=== PATIENT | male | born 1965 | race Caucasian/White ===

== ENCOUNTER 2018-07-08 05:04 | Day surgery (SDC) | payer BC ==
[2018-06-26 13:26] VITALS: BMI 29.2
[2018-07-08 12:14] VITALS: TEMP 97.9
[2018-07-08] MEDS ORDERED: MIDAZOLAM HCL 2 MG/2 ML SINGLE DOSE VIAL ONE ×2 (13:18)
[2018-07-08] MEDS ORDERED: methylPREDNISolone ACET (DEPO) 80 MG/1 ML VIAL ONE (13:18)
[2018-07-08] MEDS ORDERED: BUPIVACAINE HCL/PF 0.25% (2.5MG/ML) 10 ML VIAL ONE (13:18)
[2018-07-08] MEDS ORDERED: BUPIVACAINE HCL/PF 0.5% (5MG/ML) 10 ML VIAL ONE (13:18)
[2018-07-08] MEDS ORDERED: LIDOCAINE HCL 1% PRESERVATIVE FREE - 30ML VIAL IJ ONE (13:44)
[2018-07-08] MEDS ORDERED: methylPREDNISolone ACET (DEPO) 80 MG/1 ML VIAL IJ ONE (13:44)
[2018-07-08] MEDS ORDERED: BUPIVACAINE HCL/PF 0.25% (2.5MG/ML) 10 ML VIAL IJ ONE (13:44)
--- NOTE | 2018-07-08 14:51 | OP ---
DATE OF OPERATION: 07/08/2018 PREOPERATIVE DIAGNOSIS: Right L4-5 paracentral disk herniation with right L4-5 radiculopathy. POSTOPERATIVE DIAGNOSIS: Right L4-5 paracentral disk herniation with right L4-5 radiculopathy. ATTENDING SURGEON: Roberth Herman MD PROCEDURE: 1. Right L4-5 epidural steroid injection. 2. Intraoperative fluoroscopy. ANESTHESIA: IV sedation. ANESTHESIOLOGIST: Milton Yepez MD ESTIMATED BLOOD LOSS: Minimal. INDICATIONS: The patient is a 53-year-old male with intractable lower back pain, right lower extremity radiculopathy. Because of intractable symptoms and failure of conservative treatment he is here for the 1st epidural steroid injection. Risks of the procedure included but not limited to bleeding, infection, spinal headache and neurological injury. The patient understands the indication for the procedure, procedure in detail, risks and benefits and alternative treatments for his lumbar condition and wished to proceed. No guarantee was given for a favorable outcome. PROCEDURE IN DETAIL: After the patient was taken to the operating room he was placed in the prone position with a pillow under his hips. The lumbar region was cleaned with alcohol and prepped with Betadine. Skin wheal raised with 5 mL of 1% Xylocaine. A 22-gauge spinal needle was inserted under AP and lateral fluoroscopic guidance from right-sided approach to L4-5 through an interlaminar approach. The loss of resistance technique was utilized. There was no CSF or blood backflow. Depo-Medrol 80 mg and 1 mL of 0.25% Marcaine were injected. The needle was withdrawn. A sterile bandage was applied. The patient tolerated procedure well, returned back to supine position, moving bilateral lower extremities well. He was not complaining of headache. ROBERTH HERMAN M.D. [id number]
[2018-07-08 16:23] VITALS: BP 113/75; PULSE 67
== END 2018-07-08 15:30 | disposition home or self-care (01) ==
LOC: JASU-SURG 05:04
PROVIDERS: ATTEND Neurological Surgery
PROC: 3E0R3BZ Introduction of Anesthetic Agent into Spinal Canal, Percutaneous Approach (ICD-10-PCS; 2018-07-08)
PROC: B01BYZZ Fluoroscopy of Spinal Cord using Other Contrast (ICD-10-PCS; 2018-07-08)
PROC: 3E0R33Z Introduction of Anti-inflammatory into Spinal Canal, Percutaneous Approach (ICD-10-PCS; principal; 2018-07-08 13:00)
DX: M51.06 Intervertebral disc disorders with myelopathy, lumbar region (principal)
CPT/HCPCS: 76000-TC-FY

== ENCOUNTER 2018-07-22 06:18 | Day surgery (SDC) | payer BC ==
[2018-07-20 12:08] VITALS: BMI 29.2
[2018-07-22 06:36] VITALS: TEMP 97.6
[2018-07-22] MEDS ORDERED: methylPREDNISolone ACET (DEPO) 80 MG/1 ML VIAL ONE ×2 (07:11→07:53)
[2018-07-22] MEDS ORDERED: BUPIVACAINE HCL/PF 0.25% (2.5MG/ML) 10 ML VIAL ONE (07:12)
[2018-07-22] MEDS ORDERED: MIDAZOLAM HCL 2 MG/2 ML SINGLE DOSE VIAL ONE (07:13)
[2018-07-22] MEDS ORDERED: PROPOFOL 20 ML ONE (07:13)
[2018-07-22] MEDS ORDERED: methylPREDNISolone ACET (DEPO) 80 MG/1 ML VIAL IJ ONE (07:53)
[2018-07-22] MEDS ORDERED: LIDOCAINE HCL 1% PRESERVATIVE FREE - 30ML VIAL IJ ONE (07:53)
[2018-07-22] MEDS ORDERED: BUPIVACAINE HCL/PF 0.25% (2.5MG/ML) 10 ML VIAL IJ ONE (07:53)
[2018-07-22 09:02] VITALS: BP 135/89; PULSE 80
--- NOTE | 2018-07-22 09:10 | PN ---
Progress Note (short form) - Note Progress Note: NEUROSURGERY Son at bedside in [facility] Pt's sciatica responded to 1st epidural Pt noted worsening R foot weakness and numbness x 1 week Twisting on R ankle Wants to avoid surgery R EHL/TA 2-3 Getting MRI pre-certed with/without caitlyn Surgery highly recommended pending MRI findings Pt understands that leaving such worsening condition could result in permanent nerve injury
--- NOTE | 2018-07-22 09:15 | OP ---
DATE OF OPERATION: 07/22/2018 PREOPERATIVE DIAGNOSIS: Progressive right L5 radiculopathy. POSTOPERATIVE DIAGNOSIS: Progressive right L5 radiculopathy. ATTENDING SURGEON: Roberth Pekrins MD PROCEDURES: 1. Right L4-L5 epidural steroid injection. 2. Intraoperative fluoroscopy. ANESTHESIA: Local with IV sedation. ANESTHESIOLOGIST: Jesus Sanderson MD ESTIMATED BLOOD LOSS: Minimal. INDICATION: The patient is a 53-year-old male with a history of a right L5 radiculopathy. Because of his intractable symptoms and failure of conservative treatment, he is here for the second epidural steroid injection. The first injection did help his pain somewhat. However, the patient notes further weakness in the right foot dorsiflexion. The risks of the procedure include, but are not limited to, bleeding, infection, spinal headache, and neurological injury. The patient understands the indication for the procedure, procedure in detail, risks and benefits, and the alternatives for treatment of his lumbar condition, and wished to proceed. No guarantees were given for a favorable outcome. The patient is made aware that because of the weakness, surgery is indicated. He would like to hold off and try the second injection first, however. It was impressed upon him the importance of expeditious decompression, given neurological worsening. PROCEDURE IN DETAIL: After the patient was taken to the operating room, he was placed in the prone position. After IV sedation was given, the lower lumbar region was cleaned with alcohol and prepped with Betadine. A skin wheal was raised with 5 mL of 1% Xylocaine. A 22-gauge spinal needle was inserted under AP and lateral fluoroscopic guidance from a right-sided approach to L4-5 near the lateral recess. Loss of resistance technique was utilized and there was no CSF or blood backflow. Depo-Medrol of 80 mg and 1 mL of 0.25% Marcaine was injected. The needle was withdrawn. A sterile bandage was applied. The patient tolerated the procedure well, and was returned back to supine position, moving bilateral lower extremities as he did previously. The patient was urged strongly to follow up with my office soon to consider contemplating the surgical procedure because of his right foot dorsiflexion weakening. Ni CARLSON/[id number] MTDD
== END 2018-07-22 09:05 | disposition home or self-care (01) ==
LOC: JASU-SURG 06:18
PROVIDERS: ATTEND Neurological Surgery
PROC: 3E0R33Z Introduction of Anti-inflammatory into Spinal Canal, Percutaneous Approach (ICD-10-PCS; 2018-07-22)
PROC: B01BZZZ Fluoroscopy of Spinal Cord (ICD-10-PCS; 2018-07-22)
PROC: 3E0R3BZ Introduction of Anesthetic Agent into Spinal Canal, Percutaneous Approach (ICD-10-PCS; principal; 2018-07-22 07:30)
DX: M54.16 Radiculopathy, lumbar region (principal)
CPT/HCPCS: 76000-TC-FY

== ENCOUNTER 2019-08-30 06:25 | Inpatient (IN) | payer BC ==
[2019-08-30 06:32] VITALS: BMI 69.0
--- NOTE | 2019-08-30 07:00 | PDOC ---
Attending Attestation - Resident Resident Name: Jagdeep Goetz - ED Attending Attestation I have performed the following: I have examined & evaluated the patient, The case was reviewed & discussed with the resident, I agree w/resident's findings & plan, Exceptions are as noted - HPI HPI: 08/30/19 07:59 54yo male with hx of afib s/p 2 ablations and lbp s/p discectomy at [facility] with Dr. Garrido a year ago. Pt states he slipped about 3 weeks ago and then started with LBP and R leg paresthesias/weakness x 4 days. Pt c/o R low back pain and pain down the R leg. Pt with weakness in dorsiflexion and plantar flexion of the R foot/R big toe, paresthesias/sensory change to dorsum of the foot. No f/c. No cp/sob. No abd pain. C/o urinary freq. No dysuria. No loss of bowel or bladder control. No saddle paresthesias. New weakness/numbness since his surgery x 4 days. 08/30/19 08:54 - Physicial Exam PE: 08/30/19 08:02 Gen: aaox3, nad heart: +s1s2 reg lungs: cta b/l abd: soft, nt/nd +bs ext: no c/c/e neuro: cn ii-xii grossly intact, weakness in plantar flexion 3/5 on R, big toe R dorsiflexion - 2/5, sensory is diminished dorsum of the foot, R lateral leg, R lateral thigh, weakness with hip flexion R, 5/5 muscle strength LLE/RUE/LUE - Medical Decision Making 08/30/19 08:07 I, Dr. Carrie Paulino, DO, attest that this document has been prepared under my direction and personally reviewed by me in its entirety. I further attest, that it accurately reflects all work, treatment, procedures and medical decision -making performed by me. a/p: 54yo male with hx of lumbar disease s/p discectomy and hx of radiculopathy with surgery [address] Garrido with lbp and weakness/parethesias -pocus ultrasound bladder shows pvr of 64cc -new neuro findings, no midline back ttp, well healed incision to lumbar spine, R paraspinal ttp -will obtain labs, MRI lumbar spine, pain control, muscle relaxer -will discuss with Dr. Garrido -concern for new neuro findings/back, injury 3 weeks ago with a slip and fall -last po intake was 230a -will monitor and reassess 08/30/19 08:51 resident discussing the case with Dr. garrido recommends mri with and without to eval post surgical change vs new disease 08/30/19 09:50 ua neg 08/30/19 10:41 dr. garrido at the bedside, will add decadron 08/30/19 15:14 dr. garrido taking the patient to the OR resident discussed the case with Dr. Kimball who accepts pt to service Discharge - Discharge Information Problems reviewed: Yes Clinical Impression/Diagnosis: Lumbar radiculopathy, right, Herniated vertebral disc Condition: Guarded - Admission Yes - Follow up/Referral - Patient Discharge Instructions - Post Discharge Activity
[2019-08-30] MEDS ORDERED: KETOROLAC TROMETHAMINE 30 MG/1 ML VIAL IVPUSH ONE (07:22)
[2019-08-30] MEDS ORDERED: METHOCARBAMOL 500 MG TABLET PO ONE (07:22)
--- NOTE | 2019-08-30 07:27 | PDOC ---
History of Present Illness - General Chief Complaint: Back Pain Stated Complaint: BACK PAIN Time Seen by Provider: 08/30/19 06:54 - History of Present Illness Initial Comments: Pt is a 54 y/o M with a significant past medical history of lumbar radiculopathy , osteoporosis, and paroxysmal a-fib who presents to our emergency Department due to 3-4 days of complete numbness of the right lower extremity (haines to the Dorsum of foot). States he does have sensation on the heel and arch of his right foot however. Pt states that he also has been unable to properly ambulate during this juncture, placing his heel first as he takes a step. Pt states he fell in his shower approximately 3 weeks ago as this may be a precipitating factor to the onset of his symptoms. Furthermore, pt states he has been suffering from a sharp shooting pain ranging from his mid spine traveling down to his right lower extremity. He has only taken Tylenol for the pain. Endorses urinary frequency during this time period. Denies bowel incontinence. Denies any heavy lifting. Past History - Past Medical History Allergies/Adverse Reactions: Allergies Allergy/AdvReac Type Severity Reaction Status Date / Time Penicillins Allergy Mild Rash Verified 08/30/19 06:32 Home Medications: Ambulatory Orders Atorvastatin Ca [Lipitor] 20 mg PO DAILY 12/03/13 Aspirin [Aspirin EC] 81 mg PO DAILY 05/24/15 Walker [Ultra-Light Rollator] 1 each MC DAILY #1 each 09/01/19 Gabapentin [Neurontin -] 300 mg PO TID 30 Days #90 capsule MDD 3 09/02/19 Levofloxacin [Levaquin] 500 mg PO DAILY 7 Days #7 tablet MDD 1 09/02/19 oxyCODONE HCL [Roxicodone -] 5 mg PO Q4H PRN 7 Days #42 tablet MDD 6 09/02/19 Anemia: No Asthma: No Cancer: No Cardiac Disorders: Yes (A.Fib) CVA: No COPD: No CHF: No Dementia: No Diabetes: No GI Disorders: No Disorders: No HTN: Yes Hypercholesterolemia: Yes Liver Disease: No Seizures: No Thyroid Disease: No - Surgical History Abdominal Surgery: Yes (umbilical hernia) Appendectomy: Yes Cardiac Surgery: Yes (ABLATION) Cholecystectomy: No Lung Surgery: No Neurologic Surgery: No Orthopedic Surgery: Yes (CERVICAL DISC SX X3) - Immunization History Td Vaccination: Yes TDAP Vaccination: Yes Immunization Up to Date: Yes - Psycho Social/Smoking Cessation Hx Smoking Status: No Smoking History: Never smoked Years of Tobacco Use: 0 Have you smoked in the past 12 months: No Number of Cigarettes Smoked Daily: 0 Cigars Per Day: 0 Information on smoking cessation initiated: No Hx Alcohol Use: No Drug/Substance Use Hx: No Substance Use Type: None Hx Substance Use Treatment: No Review of Systems - Review of Systems Able to Perform ROS?: Yes Is the patient limited Greek proficient: No Constitutional: No: Chills, Fever, Loss of Appetite, Unintentional Wgt. Loss HEENTM: No: Blurred Vision Respiratory: No: Cough, Shortness of Breath, Productive cough Cardiac (ROS): No: Chest Pain, Irregular Heart Rate (h/o Paroxysmal a-fib ) ABD/GI: No: Abdominal Distended, Abd. Pain w/ defecation : Yes: Frequency. No: Incontinence Neurological: Yes: Numbness, Paresthesia, Unsteady Gait *Physical Exam - Vital Signs Last Vital Signs Temp Pulse Resp BP Pulse Ox 98.4 F 78 16 159/76 97 08/30/19 06:27 08/30/19 06:27 08/30/19 06:27 08/30/19 06:27 08/30/19 06:27 - Physical Exam Comments: 08/30/19 08:35 AAOx3 NAD EOMI Sclera Clear MMM RRR S1S2 CTA b/l NDNT CN 2-12 grossly intact. Strength 5/5 b/l upper extremities. 3/5 RLE, 5/5 LLE. Patellofemoral reflex 1+ RLE, 2+ LLE. Inability to plantar/dorsiflex R Foot. Decreased sensation mid haines to dorsum of R foot. SILT Pantar aspect and heel of R foot. ED Treatment Course - LABORATORY CBC & Chemistry Diagram: 09/02/19 09:36 09/02/19 09:36 Medical Decision Making - Medical Decision Making 08/30/19 07:35 Will order routine labs-CBC, CMP. Also Pt/INR as pt may be possible surgical candidate. Toradol 30 Once for lower back pain. Will also order Lumbar Spine MRI w/o Contrast to assess for cord compression/stenosis. 08/30/19 08:02 Bedside Bladder sono performed by Dr Paulino. PVR 64 cc. Does not have urinary retention. Voided just prior to exam. 08/30/19 13:44 Pt wheeled to MRI by Hand Edger. 08/30/19 13:44 Pt earlier seen by Dr Villa Perkins. recommends following: Stat MRI with and without caitlyn Decadron 10 mg ivp Neurontin 300 mg po tid Pre-op labs, T & S; EKG, CXR in case OR is needed pt medicated with Tylenol 1000 mg Lumbar MRI--> disc protrusion L5 area. This may be cause of pt's radiculopathy. Pt to be sent to [facility]/ Dr Perkins. Pt admitted to Hospitalist service. Discharge - Discharge Information Problems reviewed: Yes Clinical Impression/Diagnosis: Lumbar radiculopathy, right, Herniated vertebral disc Condition: Stable - Follow up/Referral - Patient Discharge Instructions - Post Discharge Activity
[2019-08-30] MEDS ORDERED: METHOCARBAMOL 500 MG TABLET ONE (07:46)
[2019-08-30] MEDS ORDERED: KETOROLAC TROMETHAMINE 30 MG/1 ML VIAL ONE (07:46)
[2019-08-30 08:34] LABS: BASO % 0.5 % (0-2.0); EOS % 2.5 % (0-4.5); HEMOGLOBIN 15.1 GM/dL (11.7-16.9); LYMPH % 36.3 % (8-40); MCH 28.4 pg (25.7-33.7); MCHC 32.9 g/dl (32.0-35.9); MEAN CELL VOLUME 86.3 fl (80-96); MEAN PLT VOLUME 9.1 fl (7.5-11.1); MONO % 7.4 % (3.8-10.2); NEUT % 53.3 % (42.8-82.8); PLATELET COUNT 201 K/MM3 (134-434); RBC 5.33 M/mm3 (4.00-5.60); RDW 12.9 % (11.9-15.9); WHITE BLOOD COUNT 6.2 K/mm3 (4.0-10.0)
[2019-08-30] MEDS ORDERED: SODIUM CHLORIDE 0.9% 1000 ML INFUS.BAG IV ONE (08:55)
[2019-08-30 08:58] LABS: BILIRUBIN,TOTAL 0.4 mg/dL (0.2-1); BLOOD UREA NITROGEN 13.9 mg/dL (7-18); CALCIUM 8.8 mg/dL (8.5-10.1); CREATININE 0.9 mg/dL (0.55-1.3); POTASSIUM 4.2 mmol/L (3.5-5.1); TOT PROT 6.7 g/dl (6.4-8.2)
[2019-08-30 09:42] LABS: URINE APPEARANCE CLEAR; URINE BILIRUBIN NEGATIVE (NEGATIVE); URINE COLOR YELLOW; URINE GLUCOSE (UA) NEGATIVE (NEGATIVE); URINE KETONE NEGATIVE (NEGATIVE); URINE LEUK ESTERASE NEGATIVE (NEGATIVE); URINE NITRITE NEGATIVE (NEGATIVE); URINE PROTEIN NEGATIVE (NEGATIVE); URINE UROBILINOGEN 0.2 mg/dL (0.2-1.0)
[2019-08-30 10:02] LABS: INR 0.89 (0.83-1.09); PROTHROMBIN TIME (PATIENT) 10.5 SEC (9.7-13.0)
[2019-08-30 10:04] LABS: ACTIVATED PTT 28.8 SECONDS (25.2-36.5)
--- NOTE | 2019-08-30 10:42 | PN ---
Progress Note (short form) - Note Progress Note: NEUROSURGERY Afib s/p 2 ablations (back in NSR by report) s/p R L4-5 and L5-S1 decompression one+ year ago. Slipped about 3 weeks ago in shower and c/o LBP and R leg paresthesias/weakness x 1-2 weeks. R low back pain and pain down the R post thigh. c/o worsening weakness, numbness, and pareshtesia R foot/R big toe. Some urinary freq. No dysuria. No loss of bowel or bladder control. PE: AF, VSS HEENT- NC/AT; Neck- supple, incision healed; Motor- R IP 4/5, R EHL 2, R TA/ev 3 , R inv/gastroc 3; Sensation- decreased LT/PP/vibration R R5 > L4 and S1; DTR- decreased B ankle reflexes; Back- 4 IN incision c/d/i, healed over L4-S1; + SLR on R at 40 degrees H/o L4-5 and L5- S1 decompression Recurrent acute LBP and R L5 > L4/S1 radiculopathy with moderate foot drop Stat MRI with and without caitlyn Decadron 10 mg ivp Neurontin 300 mg po tid Pre-op labs, T & S; EKG, CXR in case OR is needed d/w pt and ED team
[2019-08-30] MEDS ORDERED: GABAPENTIN 300 MG CAPSULE (FP) PO ONE (11:25)
--- NOTE | 2019-08-30 12:01 | CONS ---
DATE OF CONSULTATION: DATE OF DICTATION: 08/30/2019 REQUESTING PHYSICIAN: Dr. Goetz in the emergency department WEALTH MANAGEMENT ADVISOR: Roberth Herman MD, Neurosurgery CHIEF COMPLAINT: Recurrent lower back pain and progressive/moderate right L5 radiculopathy. HISTORY OF PRESENT ILLNESS: Patient is a 54-year-old right-handed male with a history of atrial fibrillation status post cardiac ablation not on anticoagulation, history of C7-T1 fusion, history of right L4, 5 and L5, S1 decompression approximately 1+ year earlier who complains of recurrent lower back pain after a near fall in the shower 3 weeks ago. He braced himself and did not fall to the floor. He felt a lightning bolt on his lower back and started experiencing lower back discomfort. About a week ago, he noticed this progressive right foot weakness and numbness as well as paresthesia. He denies bowel or bladder dysfunction. He has had mild urinary urgency. The patient has no saddle anesthesia. He has no fever or chills. He has no chest pain or shortness of breath. Back and leg pain is worse with lying down and standing, but is better with sitting down. PAST MEDICAL HISTORY: Significant for atrial fibrillation status post ablation treatment, back in sinus, hypercholesterolemia, C7-T1 fusion, lumbar right L4, 5 , and L5, S1 laminectomy. MEDICATIONS: Lipitor and baby aspirin. ALLERGIES: PENICILLIN. SOCIAL HISTORY: Does not smoke. Only drinks alcohol socially. He lives at home with his . REVIEW OF SYSTEMS: Otherwise negative for major constitutional, head, neck, cardiovascular, pulmonary, gastrointestinal, genitourinary, endocrinologic, neurologic, or psychological problems except for the above. PHYSICAL EXAMINATION: Vital Signs: Temperature is 98.4, blood pressure 159/76 with a pulse rate of 78. HEENT: Shows him to be normocephalic, atraumatic, anicteric. Neck: Supple with no carotid bruits. Incision is healed. Coronary: Demonstrates regular rhythm. Lungs: Clear bilaterally. Abdomen: Benign. He is mildly obese. Extremities: Shows no signs of DVTs. There are 2+ pulses bilaterally distally in the lower extremity. Neurologic: Shows him to be awake, alert, and oriented x4. Higher cortical function is normal. Cranial nerve examination is intact. Motor examination shows 5/5 strength except right iliopsoas, which is 4/5. Right extensor hallucis longus and tibialis anterior eversion are 2/5, plantar flexion is 3/5. Iliopsoas muscle and quadriceps muscle are 4/5. Sensory examination demonstrating decreased sensation to light touch. Pinprick and vibratory sensation right L5 greater than L4 and S1 distribution. Deep tendon reflexes show decreased ankle reflexes bilaterally. He has a positive straight leg raise on the right side 30 degrees. Skin: Examination of lower back shows a healed 3- to 4-inch scar midline over L4-S1. Laboratory examination shows white blood cell count 6.2, hemoglobin 15.1, and platelet count 201,000. INR 0.89, PTT 28.8. Serum sodium is 140 and potassium 4.2. BUN 13.9, creatinine 0.9. Urinalysis was negative. IMPRESSION: 1. Rule out recurrent right L4, 5 disk herniation with acute right L5 greater than L4 and S1 radiculopathy including moderate, progressive foot drop. 2. History of C7-T1 fusion. 3. History of atrial fibrillation back in sinus not on anticoagulation. 4. Hypercholesterolemia. RECOMMENDATION: Patient presented with 3-week history of increasing lower back pain. He has been experiencing increasing lower extremity weakness in the right L5 distribution predominantly even though he also has L4 and S1 distribution symptoms. There is weakness, numbness, and paresthesia. There is no bowel or bladder incontinence. An MRI of the lumbar spine with and without gadolinium is recommended to assess the pathology at L4, 5 level. Contrast is needed because of his prior laminectomy. If there is significant compressive pathology, surgical intervention will most likely be needed because of his progressive neurological symptoms. IV steroids are requested and will be given. Also added gabapentin 300 mg 3 times a day for him for his paresthesia and numbness. The patient is aware of the above recommendations and concur with the MRI with and without contrast. Further recommendations will be made upon availability of the MRI even though as compared to pathology it is highly suspected because of his focal neurological deficit. Preoperative medical optimization is needed because of his cardiac history. ROBERTH HERMAN M.D. [id number] MTDD
[2019-08-30] MEDS ORDERED: ACETAMINOPHEN 325 MG TABLET (FP) PO PRN (12:36)
[2019-08-30] MEDS ORDERED: ACETAMINOPHEN 325 MG TABLET (FP) ONE (12:45)
[2019-08-30] MEDS ORDERED: GABAPENTIN 100 MG CAPSULE (FP) ONE (12:46)
[2019-08-30] MEDS ORDERED: BUPIVACAINE HCL/PF 0.5% (5 MG/ML) 30 ML VIAL IJ ONE ×2 (15:58→18:50)
[2019-08-30] MEDS ORDERED: THROMBIN (BOVINE) 5,000 UNIT VIAL TP ONE ×2 (16:06→17:23)
[2019-08-30] MEDS ORDERED: MIDAZOLAM HCL 2 MG/2 ML SINGLE DOSE VIAL ONE (16:14)
[2019-08-30] MEDS ORDERED: fentaNYL CITRATE 250 MCG/5 ML VIAL ONE (16:15)
[2019-08-30] MEDS ORDERED: LACTATED RINGERS SOLUTION 1,000 ML IV SCH ×2 (16:15→18:15)
[2019-08-30] MEDS ORDERED: ROCURONIUM BROMIDE 50 MG/5 ML SYRINGE ONE ×2 (16:16→17:33)
[2019-08-30] MEDS ORDERED: PROPOFOL 20 ML ONE ×4 (16:16)
[2019-08-30] MEDS ORDERED: SUCCINYLCHOLINE CHLORIDE 200 MG/10 ML SYRINGE ONE (16:16)
[2019-08-30] MEDS ORDERED: DEXAMETHASONE SOD PHOSPHATE 4 MG/1 ML VIAL ONE (16:17)
[2019-08-30] MEDS ORDERED: EPHEDRINE SULFATE/0.9% NACL/PF 50 MG/10 ML SYRINGE NR ONE (16:17)
[2019-08-30] MEDS ORDERED: LIDOCAINE HCL/PF 2% SDV 5ML VIAL ONE (16:17)
[2019-08-30] MEDS ORDERED: ceFAZolin SODIUM 1 GM VIAL ONE (16:17)
--- NOTE | 2019-08-30 16:56 | PN ---
Progress Note (short form) - Note Progress Note: NEUROSURGERY Afib s/p 2 ablations (back in NSR by report) s/p R L4-5 and L5-S1 decompression one+ year ago. Slipped about 3 weeks ago in shower and c/o LBP and R leg paresthesias/weakness x 1-2 weeks. R low back pain and pain down the R post thigh. c/o worsening weakness, numbness, and pareshtesia R foot/R big toe. No loss of bowel or bladder control. MRI with/without- new R L4-5 paracentral HNP into neuroforamen with stenosis; compression of R L5 and L4 roots; mild L5-S1 annual tear; postlaminectomies scars R L4-5 and L5-S1; multilevel DDD Recurrent R L4-5 HNP with acute LBP and R L5 > L4/S1 radiculopathy with moderate foot drop Neurontin 300 mg po tid Decadron given Pre-op labs, T & S; EKG checked For repeat R L4-5 laminectomies, bone graft, microdiscectomy Risks: bleeding, infection, CSF leak, nerve injury, DC, DVT/PE. stroke and other risks of GA Risks higher than usual given redo surgery at same level Pt understands indications for the procedure, procedure in detail, risks, benefits, alternatives and wishes to proceed as recommended All questions answered Incision marked
[2019-08-30] MEDS ORDERED: GENTAMICIN SO4 80 MG/2 ML VIAL IVPB ONE (17:00)
[2019-08-30] MEDS ORDERED: VANCOMYCIN 1,000 MG VIAL (RESTRICTED TO ID ONLY) IVPB ONE (17:00)
[2019-08-30] MEDS ORDERED: VANCOMYCIN 1,000 MG VIAL (RESTRICTED TO ID ONLY) ONE (17:13)
[2019-08-30] MEDS ORDERED: GENTAMICIN SO4 80 MG/2 ML VIAL ONE (17:14)
[2019-08-30] MEDS ORDERED: PHENYLEPHRINE HCL 10 MG/1 ML SINGLE DOSE VIAL ONE (17:19)
[2019-08-30] MEDS ORDERED: BACITRACIN 50,000 UNITS VIAL TP ONE (17:23)
--- NOTE | 2019-08-30 17:31 | HP ---
CHIEF COMPLAINT: R leg pain PCP: unknown HISTORY OF PRESENT ILLNESS: 54M w/ pmhx of multiple spinal surgeries x5, paroxysmal afib (s/p ablation x2), HLD presents in the ED for worsening R leg pain. States about 2-3 weeks ago, he fell and tripped on his R side after which he started experiencing pain starting in the R hip radiating to the R upper thigh. He describes the pain as sharp, stabbing, and constant; took Tylenol with minimal symptomatic relief. About 2 days ago, admits to requiring a cane to ambulate due to the pain. Pt has known paresthesia/weakness on the R side. As well as worsening R foot drop. Last lumbar spinal surgery was done about 1 year ago. Denies f/c, n/v, chest pain, palpitations, abd pain, urinary/bowel incontinence. ER course was notable for: (1) VS stable, labs unremarkable (2) Lumbar MRI showed disc protrusion causing stenosis of L5, R neural foraminal narrowing; enhancing granulation tissue surrounding R S1 nerve; midline, R paracentral annular bulge w/ T2 hyperintensity in posterior annulus. 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 [employer] Has 3 children Allergies Penicillins Allergy (Mild, Verified 08/30/19 06:32) Rash HOME MEDICATIONS: Home Medications Medication Instructions Recorded Atorvastatin Ca [Lipitor] 20 mg PO DAILY 12/03/13 Aspirin [Aspirin EC] 81 mg PO DAILY 05/24/15 Ibuprofen 800 mg PO QID PRN #20 tablet 06/15/18 Metoprolol Succinate [Toprol Xl] 50 mg PO PRN 07/22/18 REVIEW OF SYSTEMS CONSTITUTIONAL: Absent: fever, chills, diaphoresis, generalized weakness, malaise, loss of appetite, weight change HEENT: Absent: rhinorrhea, nasal congestion, throat pain, throat swelling, difficulty swallowing, mouth swelling, ear pain, eye pain, visual changes CARDIOVASCULAR: Absent: chest pain, syncope, palpitations, irregular heart rate, lightheadedness , peripheral edema RESPIRATORY: Absent: cough, shortness of breath, dyspnea with exertion, orthopnea, wheezing, stridor, hemoptysis GASTROINTESTINAL: Absent: abdominal pain, abdominal distension, nausea, vomiting, diarrhea, constipation, melena, hematochezia GENITOURINARY: Absent: dysuria, frequency, urgency, hesitancy, hematuria, flank pain, genital pain MUSCULOSKELETAL: +R hip pain Absent: myalgia, arthralgia, joint swelling, back pain, neck pain SKIN: Absent: rash, itching, pallor HEMATOLOGIC/IMMUNOLOGIC: Absent: easy bleeding, easy bruising, lymphadenopathy, frequent infections ENDOCRINE: Absent: unexplained weight gain, unexplained weight loss, heat intolerance, cold intolerance NEUROLOGIC: RLE weakness and paresthesia, unsteady gait 2/2 pain Absent: headache, focal weakness or paresthesias, dizziness, unsteady gait, seizure, mental status changes, bladder or bowel incontinence PHYSICAL EXAMINATION Vital Signs - 24 hr 08/30/19 08/30/19 08/30/19 06:27 13:07 15:44 Temperature 98.4 F Pulse Rate 78 Pulse Rate [ 78 77 Radial] Respiratory 16 18 18 Rate Blood Pressure 159/76 Blood Pressure 129/79 [Left Arm] Blood Pressure 106/72 [Right Arm] O2 Sat by Pulse 97 98 98 Oximetry (%) GENERAL: Pleasant, well-appearing middle aged male. NAD. AAOx3. HEENT: AT/NC. EOMI. MMM. Facial symmetry noted. NECK: Normal range of motion, supple without lymphadenopathy, JVD, or masses. LUNGS: CTA B/L. No wheezes, rhonchi, rales noted. Symmetric chest rise. HEART: RRR. Normal S1, S2. No murmurs noted. ABDOMEN: Soft, NT/ND. No masses noted. Normoactive bowel sounds in all 4Qs. MUSCULOSKELETAL: 5/5 LLE muscle strength. +4/5 muscle strength in R hip flexion. +5/5 R knee flexion/extension. +3/5 R plantarflexion/dorsiflexion. EXTREMITIES: No peripheral edema noted b/l. 2+ dorsalis pedis pulses b/l. NEUROLOGICAL: Cranial nerves II-XII intact. Normal speech. Normal gait. PSYCHIATRIC: Cooperative. Good eye contact. Appropriate mood and affect. SKIN: Warm, dry, normal turgor, no rashes or lesions noted, normal capillary refill. Laboratory Results - last 24 hr 08/30/19 08/30/19 08/30/19 08:00 08:00 08:00 WBC 6.2 RBC 5.33 Hgb 15.1 Hct 46.0 MCV 86.3 MCH 28.4 MCHC 32.9 RDW 12.9 Plt Count 201 D MPV 9.1 Absolute Neuts (auto) 3.3 Neutrophils % 53.3 Lymphocytes % 36.3 Monocytes % 7.4 Eosinophils % 2.5 Basophils % 0.5 Nucleated RBC % 0 PT with INR 10.50 INR 0.89 PTT (Actin FS) 28.8 Sodium 140 Potassium 4.2 Chloride 106 Carbon Dioxide 27 Anion Gap 7 L BUN 13.9 Creatinine 0.9 Est GFR (CKD-EPI)AfAm 110.27 Est GFR (CKD-EPI)NonAf 95.14 Random Glucose 109 H Calcium 8.8 Total Bilirubin 0.4 AST 16 ALT 44 Alkaline Phosphatase 71 Total Protein 6.7 Albumin 4.0 Urine Color Urine Appearance Urine pH Ur Specific [place] Urine Protein Urine Glucose (UA) Urine Ketones Urine Blood Urine Nitrite Urine Bilirubin Urine Urobilinogen Ur Leukocyte Esterase Blood Type Antibody Screen 08/30/19 08/30/19 08:00 08:00 WBC RBC Hgb Hct MCV MCH MCHC RDW Plt Count MPV Absolute Neuts (auto) Neutrophils % Lymphocytes % Monocytes % Eosinophils % Basophils % Nucleated RBC % PT with INR INR PTT (Actin FS) Sodium Potassium Chloride Carbon Dioxide Anion Gap BUN Creatinine Est GFR (CKD-EPI)AfAm Est GFR (CKD-EPI)NonAf Random Glucose Calcium Total Bilirubin AST ALT Alkaline Phosphatase Total Protein Albumin Urine Color Yellow Urine Appearance Clear Urine pH 5.0 Ur Specific [place] 1.022 Urine Protein Negative Urine Glucose (UA) Negative Urine Ketones Negative Urine Blood Negative Urine Nitrite Negative Urine Bilirubin Negative Urine Urobilinogen 0.2 Ur Leukocyte Esterase Negative Blood Type B POSITIVE Antibody Screen Negative ASSESSMENT/PLAN: 54M w/ pmhx of multiple spinal surgeries x5, paroxysmal afib (s/p ablation x2), HLD presents in the ED for worsening R leg pain. #Lumbar radiculopathy; 2/2 lumbar stenosis -Lumbar MRI showed disc protrusion causing stenosis of L5, R neural foraminal narrowing; enhancing granulation tissue surrounding R S1 nerve; midline, R paracentral annular bulge w/ T2 hyperintensity in posterior annulus. -OR today for repeat laminectomies, bone graft, diskectomy -Pain control per neurosurg -NPO -PT/IS post-op #Hx of Paroxysmal Afib; Stable, s/p ablation. EKG showed NSR, HR 88, no ST-T changes. #Hx of HLD; Cont Lipitor 20. #Prophylaxis DVT: SCDs FEN -LR @125 -recheck lytes in AM -NPO Dispo -admit to med-surg Visit type - Emergency Visit Emergency Visit: Yes ED Registration Date: 08/30/19 Care time: The patient presented to the Emergency Department on the above date and was hospitalized for further evaluation of their emergent condition. - New Patient This patient is new to me today: Yes Date on this admission: 08/30/19 - Critical Care Critical Care patient: No ATTENDING PHYSICIAN STATEMENT I saw and evaluated the patient. I reviewed the resident's note and discussed the case with the resident. I agree with the resident's findings and plan as documented. SUBJECTIVE: OBJECTIVE: ASSESSMENT AND PLAN:
[2019-08-30] MEDS ORDERED: HYDROmorphone HCl 2 MG/ML VIAL ONE ×3 (17:41)
[2019-08-30] MEDS ORDERED: ACETAMINOPHEN INJECTION 100 ML IVPB ONE (17:42)
[2019-08-30] MEDS ORDERED: ONDANSETRON 4 MG/2 ML VIAL IVPUSH PRN ×2 (18:03→18:04)
[2019-08-30] MEDS ORDERED: PROMETHAZINE HCL 25 MG/1 ML VIAL IVPB PRN (18:04)
[2019-08-30] MEDS ORDERED: HYDROmorphone *PCA* 10MG/50ML DISP.SYRIN PCA SCH (18:15)
[2019-08-30] MEDS ORDERED: NEOSTIGMINE METHYLSULFATE 0.5 MG/ML - 10 ML MDV ONE (18:33)
[2019-08-30] MEDS ORDERED: BACITRACIN 15 GM TUBE TOPICAL OINTMENT ONE (18:39)
--- NOTE | 2019-08-30 18:51 | OP ---
Operative Note - Note: Operative Date: 08/30/19 Pre-Operative Diagnosis: R L4-5 posterolateral and foramenal disc herniation, epidural fibrosis; spinal stenosis Operation: Repeat and expansion of R L4-5 laminectomies for decompression of R L4 and R 5 roots and thecal sac, lysis of adhesion, R L4-5 microdiscectomy, microdissection, bone graft Findings: dense epidural fibrosis, R L4-5 HNP with lateral recess and foramenal stenosis Surgeon: Roberth Perkins Recruitment Manager: Luis Angel Jose Anesthesiologist/OIL TRANSPORT DRIVER: Shadia Massey Anesthesia: General Specimens Removed: R L4-5 disc Estimated Blood Loss (mls): 25 Operative Report Dictated: Yes
[2019-08-30] MEDS ORDERED: BACITRACIN 15 GM TUBE TOPICAL OINTMENT TP ONE (18:52)
[2019-08-30] MEDS ORDERED: D5-1/2NS+20 MEQ KCL - 20 MEQ/1,000 ML INFUS.BAG IV SCH (19:00)
--- NOTE | 2019-08-30 19:01 | PN ---
Teaching Attending Note Name of Resident: Padmini Farfan ATTENDING PHYSICIAN STATEMENT I saw and evaluated the patient. I reviewed the resident's note and discussed the case with the resident. I agree with the resident's findings and plan as documented. SUBJECTIVE: Complains of Pain, altered sensation RLE. No bladder/bowel dysfunction. OBJECTIVE: Afebrile, hemodynamically Stable. Last Vital Signs Temp Pulse Resp BP Pulse Ox 98.4 F 77 18 129/79 98 08/30/19 06:27 08/30/19 15:44 08/30/19 15:44 08/30/19 15:44 08/30/19 15:44 PATEINT SEEN POST-OP HEENT - Atramatic, Normocephalic. Heart - S1, S2, RRR Lungs - clear to auscultation Abdomen - soft, non-tender. Bowel Sounds normal. Extremities - No edema, no calf tenderness. Neuro - AAO x 3. Reduced power and sensation RLE. Laboratory Results - last 24 hr 08/30/19 08/30/19 08/30/19 08:00 08:00 08:00 WBC 6.2 RBC 5.33 Hgb 15.1 Hct 46.0 MCV 86.3 MCH 28.4 MCHC 32.9 RDW 12.9 Plt Count 201 D MPV 9.1 Absolute Neuts (auto) 3.3 Neutrophils % 53.3 Lymphocytes % 36.3 Monocytes % 7.4 Eosinophils % 2.5 Basophils % 0.5 Nucleated RBC % 0 PT with INR 10.50 INR 0.89 PTT (Actin FS) 28.8 Sodium 140 Potassium 4.2 Chloride 106 Carbon Dioxide 27 Anion Gap 7 L BUN 13.9 Creatinine 0.9 Est GFR (CKD-EPI)AfAm 110.27 Est GFR (CKD-EPI)NonAf 95.14 Random Glucose 109 H Calcium 8.8 Total Bilirubin 0.4 AST 16 ALT 44 Alkaline Phosphatase 71 Total Protein 6.7 Albumin 4.0 Urine Color Urine Appearance Urine pH Ur Specific [place] Urine Protein Urine Glucose (UA) Urine Ketones Urine Blood Urine Nitrite Urine Bilirubin Urine Urobilinogen Ur Leukocyte Esterase Blood Type Antibody Screen 08/30/19 08/30/19 08:00 08:00 WBC RBC Hgb Hct MCV MCH MCHC RDW Plt Count MPV Absolute Neuts (auto) Neutrophils % Lymphocytes % Monocytes % Eosinophils % Basophils % Nucleated RBC % PT with INR INR PTT (Actin FS) Sodium Potassium Chloride Carbon Dioxide Anion Gap BUN Creatinine Est GFR (CKD-EPI)AfAm Est GFR (CKD-EPI)NonAf Random Glucose Calcium Total Bilirubin AST ALT Alkaline Phosphatase Total Protein Albumin Urine Color Yellow Urine Appearance Clear Urine pH 5.0 Ur Specific [place] 1.022 Urine Protein Negative Urine Glucose (UA) Negative Urine Ketones Negative Urine Blood Negative Urine Nitrite Negative Urine Bilirubin Negative Urine Urobilinogen 0.2 Ur Leukocyte Esterase Negative Blood Type B POSITIVE Antibody Screen Negative Current Medications Generic Name Dose Route Start Last Admin Trade Name Freq PRN Reason Stop Dose Admin Acetaminophen 1,000 mg 08/30/19 12:36 08/30/19 13:05 Tylenol - PO 1,000 mg Q6H PRN Administration Fever Or Pain Diphenhydramine HCl 12.5 mg 08/30/19 18:04 Benadryl Injection - IVPUSH ONCE PRN FOR ITCHING Fentanyl 50 mcg 08/30/19 18:03 Sublimaze Injection - IVPUSH [id number] PRN PAIN-PACU ORDER X 4 DOSES ONLY Hydromorphone HCl 10 mg 08/30/19 18:15 Hydromorphone 10 Mg/50 Ml-Ns AMMONIA PRINT OPERATOR 09/06/19 18:05 AMMONIA PRINT OPERATOR DIPAK Protocol Lactated Ringer's 1,000 mls @ 125 mls/hr 08/30/19 18:15 Lactated Ringers Solution IV ASDIR DIPAK Ondansetron HCl 4 mg 08/30/19 18:04 Zofran Injection IVPUSH Q4H PRN NAUSEA AND/OR VOMITING Promethazine HCl 12.5 mg 08/30/19 18:04 Phenergan Injection - IVPB Q6H PRN NAUSEA AND/OR VOMITING Home Medications Medication Instructions Recorded Atorvastatin Ca [Lipitor] 20 mg PO DAILY 12/03/13 Aspirin [Aspirin EC] 81 mg PO DAILY 05/24/15 Ibuprofen 800 mg PO QID PRN #20 tablet 06/15/18 Metoprolol Succinate [Toprol Xl] 50 mg PO PRN 07/22/18 ASSESSMENT AND PLAN: 56 year old male with history of DJD Spine s/p multiple spinal surgeries, Paroxysmal Atrial fibrillation (s/p Ablation x 2), chronic paresthesia/weakness RLE, presents with worsening RLE pain and altered sensation s/p fall onto R side 2 weeks ago. MRI Lumbar Spine - showed disc protrusion causing stenosis of L5, R neural foraminal narrowing; enhancing granulation tissue surrounding R S1 nerve; midline, R paracentral annular bulge w/ T2 hyperintensity in posterior annulus. 1. DJD Spine/Lumbar radiculopathy secondary to lumbar stenosis Neurosurgery - OR today for repeat laminectomy, bone graft, discectomy NPO, analgesia, DVT Px as per NeuroSx IV fluids. 2. Paroxysmal Atrial Fibrillation ECG - NSR, rate 88, no acute ST/T changes 3. HLD - Continue Lipitor 20mg. DVT Px - as per Anesthesia
[2019-08-30] MEDS ORDERED: HYDROmorphone *PCA* 10MG/50ML DISP.SYRIN ONE (19:56)
[2019-08-30] MEDS ORDERED: HYDROmorphone *PCA* 10MG/50ML DISP.SYRIN PCA ONE (20:15)
--- NOTE | 2019-08-30 20:36 | SURG ---
Surgery Foot Doctor Note Foot Doctor: Luis Angel Jose PA-C Date of Service: 08/30/19 Diagnosis: Right L4/5 posterolateral and foramenal disc herniation, epidural fibrosis; spinal stenosis Procedure: Repeat and expansion of Right L4/5 laminectomies for decompression of Right L4 and Right L5 roots and thecal sac, lysis of adhesion, Right L4/5 microdiscectomy , microdissection, bone graft I was present for the entirety of the operative procedure. For further detail, please refer to operative report. Visit type - Case Type Case Type: ED Admission - Emergency Emergency Visit: Yes Care time: The patient presented to the Emergency Department on the above date and was hospitalized for further evaluation of their emergent condition. - New patient This patient is new to me today: Yes Date on this admission: 08/30/19
--- NOTE | 2019-08-30 22:15 | PN ---
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
[2019-08-31] MEDS: diazePAM 5 MG TABLET PO SCH ×4 (00:08→19:49)
[2019-08-31] MEDS: DOCUSATE SODIUM 100 MG CAPSULE (FP) PO SCH ×4 (00:09→21:00)
[2019-08-31] MEDS ORDERED: CEFAZOLIN 1 GM/D5W 1 GM/50 ML BAG IVPB SCH (02:00)
[2019-08-31] MEDS: VANCOMYCIN 1 GM in D5W (PRE-DOCKED) 1,000 MG/250 ML IVPB SCH ×2 (03:57→15:18)
[2019-08-31 08:18] LABS: BASO % 0.1 % (0-2.0); HEMATOCRIT 40.4 % (35.4-49); HEMOGLOBIN 13.7 GM/dL (11.7-16.9); LYMPH % 10.4 % (8-40); MCH 29.3 pg (25.7-33.7); MONO % 4.3 % (3.8-10.2); NEUT % 85.2 % (42.8-82.8); PLATELET COUNT 207 K/MM3 (134-434); RBC 4.69 M/mm3 (4.00-5.60); RDW 13.1 % (11.9-15.9); WHITE BLOOD COUNT 10.4 K/mm3 (4.0-10.0)
--- NOTE | 2019-08-31 08:36 | PN ---
Progress Note (short form) - Note Progress Note: NEUROSURGERY POD #1 s/p repeat R L45- laminectomies, discectomy for R L4-5 HNP/foot drop Incisional pain mild Less shooting pain R foot less numbness and slightly less weak subjectively PE; AF, VSS CV- RR; Lungs- CTA B; Abd-benign; Ext- no sign of DVT CN- intact; Motor- R EHL 2/5; R TA 3, PF/IP 4-; remainder 4+; Sensation- residual numbness R L4-5 Dressing C/D/I- changed Neurontin 300 mg po tid Light activity only SCD's Encouraged R foot ROM Pain meds prn Neurontin FINANCIAL AID ADVISOR Complete iv vanco Incentive spirometry Findings and progress d/w pt
[2019-08-31 08:41] LABS: ALBUMIN 3.6 g/dl (3.4-5.0); BILIRUBIN,TOTAL 0.6 mg/dL (0.2-1); BLOOD UREA NITROGEN 15.1 mg/dL (7-18); CALCIUM 8.4 mg/dL (8.5-10.1); CREATININE 0.9 mg/dL (0.55-1.3); POTASSIUM 4.3 mmol/L (3.5-5.1); TOT PROT 6.1 g/dl (6.4-8.2)
--- NOTE | 2019-08-31 09:26 | PN ---
Physical Exam: SUBJECTIVE: Patient seen and examined. No acute events overnight. Pt states pain is controlled with minimal use of HOSE TESTER. Able to bear weight and ambulate slowly. Mild numbness in L4/L5 distribution, but improved from previous. OBJECTIVE: Vital Signs Period Temp Pulse Resp BP Sys/Baker Pulse Ox Last 24 Hr 97.5 F-98.2 F 65-106 10-20 106-153/57-86 94-98 GENERAL: The patient is awake, alert, and fully oriented, in no acute distress. HEAD: Normal with no signs of trauma. EYES: PERRL, extraocular movements intact, sclera anicteric, conjunctiva clear. No ptosis. ENT: Ears normal, nares patent, oropharynx clear without exudates, moist mucous membranes. NECK: Trachea midline, full range of motion, supple. LUNGS: Breath sounds equal, clear to auscultation bilaterally, no wheezes, no crackles, no accessory muscle use. HEART: Regular rate and rhythm, S1, S2 without murmur, rub or gallop. ABDOMEN: Soft, nontender, nondistended, normoactive bowel sounds, no guarding, no rebound, no hepatosplenomegaly, no masses. EXTREMITIES: 2+ pulses, warm, well-perfused, no edema. Full ROM. Decreased strength in BLE post-op 2/2 pain. NEUROLOGICAL: Cranial nerves II through XII grossly intact. Normal speech, steady slow gait and weight-bearing. Decreased sensation in BLE. PSYCH: Normal mood, normal affect. SKIN: Warm, dry, normal turgor, no rashes or lesions noted. Surgical dressing on back is clean, dry, and intact. Laboratory Results - last 24 hr CBC, BMP 08/31/19 06:50 08/31/19 06:50 Active Medications Acetaminophen (Tylenol -) 1,000 mg PO Q6H PRN PRN Reason: Fever Or Pain Last Admin: 08/30/19 13:05 Dose: 1,000 mg Atorvastatin Calcium (Lipitor -) 20 mg PO HS DIPAK Diazepam (Valium -) 5 mg PO Q8H [facility] Last Admin: 08/31/19 03:57 Dose: 5 mg Diphenhydramine HCl (Benadryl Injection -) 12.5 mg IVPUSH ONCE PRN PRN Reason: FOR ITCHING Docusate Sodium (Colace -) 100 mg PO TID [facility] Last Admin: 08/31/19 06:24 Dose: 100 mg Gabapentin (Neurontin -) 300 mg PO TID DIPAK Hydromorphone HCl (Hydromorphone 10 Mg/50 Ml-Ns) 10 mg HOSE TESTER HOSE TESTER DIPAK; Protocol Stop: 09/06/19 18:05 Last Admin: 08/31/19 00:08 Dose: Not Given Potassium Chloride/Dextrose/Sod Cl (D5-1/2ns+20 Meq Kcl -) 20 meq in 1,000 mls @ 100 mls/hr IV ASDIR DIPAK Last Admin: 08/31/19 00:08 Dose: Not Given Influenza Virus Vaccine Quadrival (Flulaval Quad [id number]) 60 mcg IM .ONCE ONE Stop: 08/31/19 10:01 Ondansetron HCl (Zofran Injection) 4 mg IVPUSH Q4H PRN PRN Reason: NAUSEA AND/OR VOMITING Oxycodone HCl (Roxicodone -) 5 mg PO Q4H PRN PRN Reason: PAIN LEVEL 4 - 6 Promethazine HCl (Phenergan Injection -) 12.5 mg IVPB Q6H PRN PRN Reason: NAUSEA AND/OR VOMITING Vancomycin HCl (Vancomycin (Pre-Docked)) 1,000 mg IVPB Q12H [facility]; Protocol Stop: 08/31/19 16:01 Last Admin: 08/31/19 03:57 Dose: 1,000 mg ASSESSMENT/PLAN: Mr. Ross is a 54 year old PMH of multiple spinal surgeries x5, paroxysmal AFib (s/p ablation x2), HLD presents with worsening R leg pain and altered sensation s/p fall onto R side 2 weeks ago. #Lumbar radiculopathy 2/2 lumbar stenosis Lumbar MRI: disc protrusion causing stenosis of L5, R neural foraminal narrowing; enhanchin granulation tissue surround R S1 nerve POD #1: R L4/L5 laminectomy for decompression of roots & thecal sac, lysis of adhesion (Dr. Perkins) Neurosurgery post-op recs as follows: Neurotonin 300mg po TID, HOSE TESTER hydromorphone 10mg prn, oxycodone 5mg Q4 prn , valium 5mg Q8H prn, tylenol Q6 Light activity only, encouraged R foot ROM Vancomycin 1gm Q12 to be completed Incentive spirometry #Paroxysmal Afib Stable, s/p ablation EKG: NSR, no ST-T changes #HLD Cont home lipitor 20mg HS #FEN No fluids Regular diet, advance as tolerated #DVT ppx SCDs #Dispo Med-surg Visit type - Emergency Visit Emergency Visit: No - New Patient This patient is new to me today: Yes Date on this admission: 08/31/19 - Critical Care Critical Care patient: No ATTENDING PHYSICIAN STATEMENT I saw and evaluated the patient. I reviewed the resident's note and discussed the case with the resident. I agree with the resident's findings and plan as documented. SUBJECTIVE: OBJECTIVE: ASSESSMENT AND PLAN:
--- NOTE | 2019-08-31 09:57 | OP ---
DATE OF OPERATION: 08/30/2019 PREOPERATIVE DIAGNOSES: 1. Recurrent/new right L4-L5 posterolateral and foraminal disk protrusion with thecal sac and right L4 and L5 nerve root impingement. 2. History of right L4-L5 laminectomy and right L5-S1 microdiskectomy. 3. Hypertension. 4. Right L4 and L5 radiculopathy with foot drop. 5. History of anterior cervical fusion at C7-T1. PROCEDURES PERFORMED: 1. Partial expansion of prior right L4 and L5 laminectomy, including medial facetectomy and foraminotomy for decompression of thecal sac at right L4 and L5 nerve roots ([id number], [id number]). 2. Microsurgical dissection with operating microscope and microsurgical technique ([id number]). 3. Posterolateral bone graft with autologous bone dust for posterolateral bone fusion ([id number]). 4. Right L4-L5 microdiskectomy. ATTENDING SURGEON: Roberth Perkins MD CERTIFIED TOWER CLIMBER: DANK Ortiz ANESTHESIA: General endotracheal. ANESTHESIOLOGIST: Shadia Massey MD ESTIMATED BLOOD LOSS: 25 mL. FINDINGS: 1. Dense epidural fibrosis right L4-L5. 2. Right L4-L5 foraminal disk protrusion with thecal sac and right L4 and L5 nerve root impingement. 3. Foraminal stenosis. INDICATIONS: Patient is a 54-year-old male with a history of right L4-L5 and L5 -S1 laminectomy and concurrent right L5-S1 microdiskectomy, who complains of worsening lower back pain and right-sided foot drop with associated numbness for approximately 1 to 2 weeks' duration. He also has pain radiating down to the buttock and posterior thigh. ND dissected moderate to large right L4-L5 paracentral and foraminal disk protrusion with thecal sac and right L4 and L5 nerve root impingement. Because of his intractable progressive neurological deficits, he was consented for expansion of right L4-L5 prior laminectomy, lysis of adhesion and bone graft placement. The patient understands the risks of the surgery include but are not limited to bleeding, infection, dural tear with CSF leak, neurological injury, increased thromboembolic risk and other risks of general anesthesia. The patient understands the indications for the procedure, the procedure in detail, the risks and benefits, and alternative treatments for his lumbar condition, and wishes to proceed. No guarantees were given for a favorable outcome. DESCRIPTION OF PROCEDURE: After the patient was taken to the operating room, he was placed in the supine position. After general anesthesia was induced and appropriate lines were placed, he was turned into the prone position on a Ed frame. All pressure points were checked and padded. The lumbar region was cleaned with alcohol and prepped with Betadine. Local IV anesthesia was obstructed and a spinal needle placed. At this point, the top portion of the prior incision was used with approximately 1 cm cephalad extension. The periosteal dissection was carried out with a periosteal elevator and monopolar electrocautery. Dense paraspinal fibrosis was encountered. A self-retaining retractor was inserted. Nerve localization was obtained with a clamp over the bottom remaining right L4 lamina. After the position was verified, partial laminectomy at L4 and L5 was carried out with a high-speed pneumatic drill, angled curette and Kerrison rongeur. Further medial facetectomy was carried out with the high-speed pneumatic drill as well. Facet synovium was identified and was removed with the pituitary rongeur. This portion of the procedure was performed with use of the operating microscope as well as illumination and magnification. Microsurgical technique was utilized. Because of very dense epidural fibrosis noted, there was no ordinary anatomic plane at all. The right L5 nerve root was eventually identified and it was traced towards the right L5-S1 neural foramen. It was decompressed with further laminectomy at right L5. The lateral recess was accessed after the medial facetectomy was further performed. Lysis of epidural adhesions was further carried out, including decompression of the right L4-L5 neural foramen. The foramen was rather tight. Disk annulus was incised with a number 15 blade. No nerve root retraction was placed because of the dense epidural fibrosis. Disk material was removed with a combination of straight upgoing pituitary rongeur as well as downgoing curettes. The foraminal portion of disk material was pushed into the disk space with a downgoing curette and the disk material was removed with upgoing pituitary rongeur. The dura appeared fairly thinned out because of the thinned epidural fibrosis. Epidural hemostasis was achieved with Surgifoam as well as bipolar electrocautery. The wounds were irrigated with antibiotic irrigation. Valsalva maneuver was performed on 2 different occasions to ascertain that there was no CSF leak because of the redo nature of the surgery. At this point, the wound was once again irrigated with antibiotic irrigation. Marcaine 0.25%, 10 mL, was injected in the paraspinal muscles on the right side only. A single layer of Surgicel was layered in the epidural space, as well as a thin layer of DuraSeal. This was done as a precaution. The posterolateral surface of the spine was decorticated with the high-speed pneumatic drill and the previously harvested bone graft was then placed on the posterolateral surface of the spine. The area was lightly decorticated with the high-speed pneumatic drill first. This was done over the lateral surface of L4 and L5. At this point, hemostasis was obtained with bipolar electrocautery. The dorsal lumbar fascia was closed with 0 Vicryl sutures. Subcuticular fascia was closed with 3-0 Vicryl sutures. The skin was closed with 4-0 Vicryl running subcuticular suture. Steri-Strips and sterile dressing were applied. The patient tolerated the procedure well, was turned back to the supine position , and extubated. His neurological examination was stable in the recovery room. He had no significant right lower extremity pain in Recovery. He remained with right foot dorsiflexion and weakness, as he did preoperatively. All needle and lap counts were correct. The patient received one dose of 1 g of vancomycin and 80 mg of gentamicin prior to the procedure. The OR timeout procedure was followed. The patient's was updated as to the intraoperative findings as well as the patient's postoperative condition. Ni CARLSON/[id number] MTDD
[2019-08-31] MEDS ORDERED: metoPROLOL SUCCINATE 25 MG TAB.SR.24H (FP) PO SCH (10:00)
[2019-08-31] MEDS ORDERED: FLU VACCINE QUAD 60 MCG/0.5 ML (MDV 19-20) IM ONE (10:00)
--- NOTE | 2019-08-31 10:48 | PN ---
Progress Note (short form) - Note Progress Note: Anesthesia Post Op Note Pt awake alert in bed s/p GA for laminectomy Pt denies n/v, no puritis, no urinary retention Pt reports good pain control with minimal use of ELECTRIC TRACK SWITCH MAINTAINER Pt ambulating well VSS Considering pt tatyana po, and minimal use of ELECTRIC TRACK SWITCH MAINTAINER will d/c today no apparent anesthesia complications [facility]so.
--- NOTE | 2019-08-31 11:05 | EKG ---
Test Reason : Blood Pressure : / mmHG Vent. Rate : 088 BPM Atrial Rate : 088 BPM P-R Int : 180 ms QRS Dur : 088 ms QT Int : 364 ms P-R-T Axes : 047 -02 049 degrees QTc Int : 440 ms POOR DATA QUALITY, INTERPRETATION MAY BE ADVERSELY AFFECTED NORMAL SINUS RHYTHM NORMAL ECG WHEN COMPARED WITH ECG OF 03-DEC-2013 19:41, VENT. RATE HAS INCREASED BY 33 BPM Confirmed by Douglas Gannon MD ([id number]) on 08/31/2019 11:05:22 AM Referred By: Confirmed By:Douglas Gannon MD
--- NOTE | 2019-08-31 11:51 | PN ---
Teaching Attending Note Name of Resident: Mary Dennison ATTENDING PHYSICIAN STATEMENT I saw and evaluated the patient. I reviewed the resident's note and discussed the case with the resident. I agree with the resident's findings and plan as documented. SUBJECTIVE: Complains of Pain, altered sensation RLE. No bladder/bowel dysfunction. OBJECTIVE: Afebrile, hemodynamically Stable. Last Vital Signs Temp Pulse Resp BP Pulse Ox 97.9 F 96 H 20 128/57 L 98 08/31/19 10:08/31/19 10:00 08/31/19 10:00 08/31/19 10:08/31/19 09:00 Heart - S1, S2, RRR Lungs - clear to auscultation Abdomen - soft, non-tender. Bowel Sounds normal. Extremities - No edema, no calf tenderness. Neuro - AAO x 3. Mildly reduced power and altered sensation RLE. Laboratory Results - last 24 hr 08/31/19 08/31/19 06:50 06:50 WBC 10.4 H RBC 4.69 Hgb 13.7 Hct 40.4 MCV 86.0 MCH 29.3 MCHC 34.0 RDW 13.1 Plt Count 207 MPV 9.0 Absolute Neuts (auto) 8.9 H Neutrophils % 85.2 H D Lymphocytes % 10.4 D Monocytes % 4.3 Eosinophils % 0.0 D Basophils % 0.1 Nucleated RBC % 0 Sodium 138 Potassium 4.3 Chloride 103 Carbon Dioxide 25 Anion Gap 9 BUN 15.1 Creatinine 0.9 Est GFR (CKD-EPI)AfAm 110.27 Est GFR (CKD-EPI)NonAf 95.14 Random Glucose 120 H Calcium 8.4 L Total Bilirubin 0.6 AST 16 ALT 38 Alkaline Phosphatase 60 Total Protein 6.1 L Albumin 3.6 Current Medications Generic Name Dose Route Start Last Admin Trade Name Freq PRN Reason Stop Dose Admin Acetaminophen 1,000 mg 08/30/19 12:36 08/30/19 13:05 Tylenol - PO 1,000 mg Q6H PRN Administration Fever Or Pain Atorvastatin Calcium 20 mg 08/31/19 22:00 Lipitor - PO HS DIPAK Diazepam 5 mg 08/30/19 19:00 08/31/19 03:57 Valium - PO 5 mg Q8H DIPAK Administration Diphenhydramine HCl 12.5 mg 10/28/19 18:04 Benadryl Injection - IVPUSH ONCE PRN FOR ITCHING Docusate Sodium 100 mg 08/30/19 22:00 08/31/19 06:24 Colace - PO 100 mg TID DIPAK Administration Gabapentin 300 mg 08/31/19 14:00 Neurontin - PO TID DIPAK Ondansetron HCl 4 mg 08/30/19 18:04 Zofran Injection IVPUSH Q4H PRN NAUSEA AND/OR VOMITING Oxycodone HCl 5 mg 08/30/19 18:51 Roxicodone - PO Q4H PRN PAIN LEVEL 4 - 6 Promethazine HCl 12.5 mg 08/30/19 18:04 Phenergan Injection - IVPB Q6H PRN NAUSEA AND/OR VOMITING Vancomycin HCl 1,000 mg 08/31/19 04:00 08/31/19 03:57 Vancomycin (Pre-Docked) IVPB 08/31/19 16:01 1,000 mg Q12H DIPAK Administration Protocol Home Medications Medication Instructions Recorded Atorvastatin Ca [Lipitor] 20 mg PO DAILY 12/03/13 Aspirin [Aspirin EC] 81 mg PO DAILY 05/24/15 ASSESSMENT AND PLAN: 56 year old male with history of DJD Spine s/p multiple spinal surgeries, Paroxysmal Atrial fibrillation (s/p Ablation x 2), chronic paresthesia/weakness RLE, presents with worsening RLE pain and altered sensation s/p fall onto R side 2 weeks ago. MRI Lumbar Spine - showed disc protrusion causing stenosis of L5, R neural foraminal narrowing; enhancing granulation tissue surrounding R S1 nerve; midline, R paracentral annular bulge w/ T2 hyperintensity in posterior annulus. 1. DJD Spine/Lumbar radiculopathy secondary to lumbar stenosis s/p repeat R L45 - laminectomies, discectomy for R L4-5 HNP/foot drop Tolerating oral intake, IV fluids stopped. Incentive Spirometry Nic-op prophylactic Vanco as per NeurSx. WOODEN BOAT BUILDER discontinued by anesthesia - now on Oxycodone PRN, Valium, Neurontin. PT as recommended by Neurosurgery - for possible DC tomorrow depending on progress with PT. 2. Paroxysmal Atrial Fibrillation Currently in SR. Aspirin held nic-operatively. 3. HLD - Continue Lipitor 20mg. DVT Px - SCDs as per Neurosurgery
[2019-08-31] MEDS: GABAPENTIN 300 MG CAPSULE (FP) PO SCH ×2 (15:18→21:00)
[2019-08-31] MEDS ORDERED: ACETAMINOPHEN 500 MG TABLET (FP) PO PRN (20:48)
[2019-08-31] MEDS: ATORVASTATIN CA 10 MG TABLET (FP) PO SCH (21:00)
[2019-09-01] MEDS: oxyCODONE HCL 5 MG TABLET PO PRN ×2 (03:10→09:13)
[2019-09-01] MEDS: diazePAM 5 MG TABLET PO SCH ×3 (03:13→20:08)
[2019-09-01] MEDS: DOCUSATE SODIUM 100 MG CAPSULE (FP) PO SCH ×3 (05:44→22:09)
[2019-09-01] MEDS: GABAPENTIN 300 MG CAPSULE (FP) PO SCH ×3 (05:44→22:09)
[2019-09-01 08:27] LABS: HEMATOCRIT 38.1 % (35.4-49); HEMOGLOBIN 12.8 GM/dL (11.7-16.9); MCH 28.8 pg (25.7-33.7); MCHC 33.5 g/dl (32.0-35.9); MEAN CELL VOLUME 86.2 fl (80-96); MEAN PLT VOLUME 8.9 fl (7.5-11.1); PLATELET COUNT 176 K/MM3 (134-434); RBC 4.42 M/mm3 (4.00-5.60); RDW 13.1 % (11.9-15.9); WHITE BLOOD COUNT 8.5 K/mm3 (4.0-10.0)
[2019-09-01 09:01] LABS: BLOOD UREA NITROGEN 15.1 mg/dL (7-18); CALCIUM 8.2 mg/dL (8.5-10.1); CREATININE 0.9 mg/dL (0.55-1.3)
--- NOTE | 2019-09-01 09:30 | PN ---
Progress Note (short form) - Note Progress Note: NEUROSURGERY POD #2 s/p repeat R L45- laminectomies, discectomy for R L4-5 HNP/foot drop Incisional pain mild Less shooting pain R foot less numbness and slightly less weak subjectively PE: Tmax 98.9, AF, VSS CV- RR; Lungs- CTA B; Abd-benign; Ext- no sign of DVT CN- intact; Motor- R EHL 2/5; R TA 3, PF/IP 4-; remainder 4+; Sensation- residual numbness R L4-5 Dressing C/D/I- changed Cont Neurontin 300 mg po tid Light activity only SCD's Encouraged R foot ROM Pain meds prn MANAGER OF PROGRAM Completed iv vanco x 24 hours Incentive spirometry Activity d/w pt Findings and progress d/w pt
--- NOTE | 2019-09-01 10:26 | PN ---
Progress Note (short form) - Note Progress Note: NEUROSURGERY POD #2 s/p repeat R L45- laminectomies, discectomy for R L4-5 HNP/foot drop Walked with Pt yesterday Incisional pain mild Left calf and hip pain overnight; some R ankle swelling, no C/P or dyspnea PE: Tmax 98.9, AF, VSS CV- RR; Lungs- CTA B; Abd-benign; Ext- no sign of DVT; no ankle swelling CN- intact; Motor- R EHL 2/5; R TA 2-3, PF/IP 4-; remainder 4+; Sensation- residual numbness R L4-5 Dressing with mild serosangrenous drainage on top Cont Neurontin 300 mg po tid Light activity only SCD's Encouraged R foot ROM Pain meds prn Decadron x1 Completed iv vanco x 24 hours Monitor wound Incentive spirometry Activity d/w pt
[2019-09-01] MEDS ORDERED: DEXAMETHASONE SOD PHOSPHATE 4 MG/1 ML VIAL IVPUSH ONE (10:30)
--- NOTE | 2019-09-01 11:57 | PN ---
Physical Exam: SUBJECTIVE: Patient seen and examined. Pt had R-sided back pain overnight. Endorses mild numbness in R foot. No fevers or chills. Ambulated with PT yesterday with mild pain. OBJECTIVE: Vital Signs Period Temp Pulse Resp BP Sys/Baker Pulse Ox Last 24 Hr 98.1 F-98.9 F 84-116 18-20 104-113/52-85 95 GENERAL: The patient is awake, alert, and fully oriented, in no acute distress. HEAD: Normal with no signs of trauma. EYES: PERRL, extraocular movements intact, sclera anicteric, conjunctiva clear. No ptosis. ENT: Ears normal, nares patent, oropharynx clear without exudates, moist mucous membranes. NECK: Trachea midline, full range of motion, supple. LUNGS: Breath sounds equal, clear to auscultation bilaterally, no wheezes, no crackles, no accessory muscle use. HEART: Regular rate and rhythm, S1, S2 without murmur, rub or gallop. ABDOMEN: Soft, nontender, nondistended, normoactive bowel sounds, no guarding, no rebound, no hepatosplenomegaly, no masses. EXTREMITIES: 2+ pulses, warm, well-perfused, no edema. Full ROM. Decreased strength in BLE post-op 2/2 pain. NEUROLOGICAL: Cranial nerves II through XII grossly intact. Normal speech, steady slow gait and weight-bearing. Decreased sensation in BLE. PSYCH: Normal mood, normal affect. SKIN: Warm, dry, normal turgor, no rashes or lesions noted. Surgical dressing on back is has mild drainage. Laboratory Results - last 24 hr 09/01/19 09/01/19 07:30 07:30 WBC 8.5 RBC 4.42 Hgb 12.8 Hct 38.1 MCV 86.2 MCH 28.8 MCHC 33.5 RDW 13.1 Plt Count 176 MPV 8.9 Sodium 141 Potassium 4.0 Chloride 107 Carbon Dioxide 27 Anion Gap 6 L BUN 15.1 Creatinine 0.9 Est GFR (CKD-EPI)AfAm 110.27 Est GFR (CKD-EPI)NonAf 95.14 Random Glucose 96 Calcium 8.2 L Active Medications Acetaminophen (Tylenol -) 1,000 mg PO Q6H PRN PRN Reason: Fever Or Pain Last Admin: 08/31/19 20:53 Dose: 1,000 mg Atorvastatin Calcium (Lipitor -) 20 mg PO HS [facility] Last Admin: 08/31/19 21:00 Dose: 20 mg Diazepam (Valium -) 5 mg PO Q8H [facility] Last Admin: 09/01/19 11:06 Dose: 5 mg Diphenhydramine HCl (Benadryl Injection -) 12.5 mg IVPUSH ONCE PRN PRN Reason: FOR ITCHING Docusate Sodium (Colace -) 100 mg PO TID [facility] Last Admin: 09/01/19 05:44 Dose: 100 mg Gabapentin (Neurontin -) 300 mg PO TID [facility] Last Admin: 09/01/19 05:44 Dose: 300 mg Ondansetron HCl (Zofran Injection) 4 mg IVPUSH Q4H PRN PRN Reason: NAUSEA AND/OR VOMITING Oxycodone HCl (Roxicodone -) 5 mg PO Q4H PRN PRN Reason: PAIN LEVEL 4 - 6 Last Admin: 09/01/19 09:13 Dose: 5 mg Promethazine HCl (Phenergan Injection -) 12.5 mg IVPB Q6H PRN PRN Reason: NAUSEA AND/OR VOMITING ASSESSMENT/PLAN: Mr. Ross is a 54 year old PMH of multiple spinal surgeries x5, paroxysmal AFib (s/p ablation x2), HLD presents with worsening R leg pain and altered sensation s/p fall onto R side 2 weeks ago. #Lumbar radiculopathy 2/2 lumbar stenosis Lumbar MRI: disc protrusion causing stenosis of L5, R neural foraminal narrowing; enhanchin granulation tissue surround R S1 nerve POD #2: R L4/L5 laminectomy for decompression of roots & thecal sac, lysis of adhesion (Dr. Perkins) Neurosurgery post-op recs as follows: Neurotonin 300mg po TID, MEDICAL TECHNOLOGIST PRN hydromorphone 10mg prn, oxycodone 5mg Q4 prn , valium 5mg Q8H prn, tylenol Q6 Light activity only, encouraged R foot ROM Vancomycin 1gm Q12, completed 24 hour course Incentive spirometry #Paroxysmal Afib Stable, s/p ablation EKG: NSR, no ST-T changes #HLD Cont home lipitor 20mg HS #FEN No fluids Regular diet, advance as tolerated #DVT ppx SCDs #Dispo Med-surg Visit type - Emergency Visit Emergency Visit: No - New Patient This patient is new to me today: No - Critical Care Critical Care patient: No ATTENDING PHYSICIAN STATEMENT I saw and evaluated the patient. I reviewed the resident's note and discussed the case with the resident. I agree with the resident's findings and plan as documented. SUBJECTIVE: OBJECTIVE: ASSESSMENT AND PLAN:
--- NOTE | 2019-09-01 14:26 | PN ---
Teaching Attending Note Name of Resident: Mary Dennison ATTENDING PHYSICIAN STATEMENT I saw and evaluated the patient. I reviewed the resident's note and discussed the case with the resident. I agree with the resident's findings and plan as documented. SUBJECTIVE: Pain overnight but generally improved. Still has altered sensation RLE but improved. No bladder/bowel dysfunction. OBJECTIVE: Afebrile, hemodynamically Stable. Last Vital Signs Temp Pulse Resp BP Pulse Ox 98.1 F 91 H 20 121/74 97 09/01/19 10:00 09/01/19 10:00 09/01/19 10:00 09/01/19 10:00 09/01/19 09:00 Heart - S1, S2, RRR Lungs - clear to auscultation Abdomen - soft, non-tender. Bowel Sounds normal. Extremities - No edema, no calf tenderness. Neuro - AAO x 3. Mildly reduced power and altered sensation RLE. MS - Wound not visualized. Exam as per NeuroSx. Laboratory Results - last 24 hr 09/01/19 09/01/19 07:30 07:30 WBC 8.5 RBC 4.42 Hgb 12.8 Hct 38.1 MCV 86.2 MCH 28.8 MCHC 33.5 RDW 13.1 Plt Count 176 MPV 8.9 Sodium 141 Potassium 4.0 Chloride 107 Carbon Dioxide 27 Anion Gap 6 L BUN 15.1 Creatinine 0.9 Est GFR (CKD-EPI)AfAm 110.27 Est GFR (CKD-EPI)NonAf 95.14 Random Glucose 96 Calcium 8.2 L Current Medications Generic Name Dose Route Start Last Admin Trade Name Freq PRN Reason Stop Dose Admin Acetaminophen 1,000 mg 08/31/19 20:48 08/31/19 20:53 Tylenol - PO 1,000 mg Q6H PRN Administration Fever Or Pain Atorvastatin Calcium 20 mg 08/31/19 22:00 08/31/19 21:00 Lipitor - PO 20 mg HS DIPAK Administration Diazepam 5 mg 08/30/19 19:00 09/01/19 11:06 Valium - PO 5 mg Q8H DIPAK Administration Diphenhydramine HCl 12.5 mg 08/30/19 18:04 Benadryl Injection - IVPUSH ONCE PRN FOR ITCHING Docusate Sodium 100 mg 08/30/19 22:00 09/01/19 13:56 Colace - PO 100 mg TID DIPAK Administration Gabapentin 300 mg 08/31/19 14:00 09/01/19 13:56 Neurontin - PO 300 mg TID DIPAK Administration Ondansetron HCl 4 mg 08/30/19 18:04 Zofran Injection IVPUSH Q4H PRN NAUSEA AND/OR VOMITING Oxycodone HCl 5 mg 08/30/19 18:51 09/01/19 09:13 Roxicodone - PO 5 mg Q4H PRN Administration PAIN LEVEL 4 - 6 Promethazine HCl 12.5 mg 08/30/19 18:04 Phenergan Injection - IVPB Q6H PRN NAUSEA AND/OR VOMITING Home Medications Medication Instructions Recorded Atorvastatin Ca [Lipitor] 20 mg PO DAILY 12/03/13 Aspirin [Aspirin EC] 81 mg PO DAILY 05/24/15 Walker [Ultra-Light Rollator] 1 each MC DAILY #1 each 09/01/19 ASSESSMENT AND PLAN: 56 year old male with history of DJD Spine s/p multiple spinal surgeries, Paroxysmal Atrial fibrillation (s/p Ablation x 2), chronic paresthesia/weakness RLE, presents with worsening RLE pain and altered sensation s/p fall onto R side 2 weeks ago. MRI Lumbar Spine - showed disc protrusion causing stenosis of L5, R neural foraminal narrowing; enhancing granulation tissue surrounding R S1 nerve; midline, R paracentral annular bulge w/ T2 hyperintensity in posterior annulus. 1. DJD Spine/Lumbar radiculopathy secondary to lumbar stenosis s/p repeat R L45 - laminectomies, discectomy for R L4-5 HNP/foot drop Tolerating oral intake, IV fluids stopped. Incentive Spirometry Nic-op prophylactic Vanco completed as per NeurSx. 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 PT as recommended by Neurosurgery Further recs as per neuroSx. 2. Paroxysmal Atrial Fibrillation Currently in SR. Aspirin held nic-operatively. 3. HLD - Continue Lipitor 20mg. DVT Px - SCDs as per Neurosurgery
--- NOTE | 2019-09-01 19:20 | PATH ---
Surgical Pathology Report Patient Name: SUSY RENDON Med. Rec. #: [id number] /Age/Gender: 1965 (Age: 54) / M Account: [id number] Location: [facility] MED/SURG Taken: 08/30/2019 Received: 08/31/2019 Reported: 09/01/2019 Physicians: Ni Johnson DO Specimen(s) Received RT L4-5 DISC Clinical History Lower back pain, right lower extremity numbness, femoral disc herniation, epidural fibrosis and spinal stenosis Final Diagnosis RIGHT L4-L5 DISC, DISCECTOMY: BONE AND CARTILAGINOUS TISSUE WITH FOCAL DEGENERATIVE CHANGE. Electronically Signed Johnnie See M.D. Gross Description Received in formalin labeled "right L4-L5 disc," is a 2.7 x 2.2 x 0.3 cm aggregate of banerjee fragments of fibrocartilaginous tissue. A passenger service representative portion is submitted in one cassette. /08/31/2019 saudi/08/31/2019
[2019-09-01] MEDS: ATORVASTATIN CA 10 MG TABLET (FP) PO SCH (22:10)
[2019-09-02] MEDS: oxyCODONE HCL 5 MG TABLET PO PRN (02:03)
[2019-09-02] MEDS: diazePAM 5 MG TABLET PO SCH ×2 (03:08→10:44)
[2019-09-02] MEDS: GABAPENTIN 300 MG CAPSULE (FP) PO SCH (06:24)
[2019-09-02] MEDS: DOCUSATE SODIUM 100 MG CAPSULE (FP) PO SCH (06:24)
[2019-09-02 07:05] VITALS: TEMP 98.1
[2019-09-02 10:20] LABS: HEMATOCRIT 42.8 % (35.4-49); HEMOGLOBIN 14.2 GM/dL (11.7-16.9); MCH 28.8 pg (25.7-33.7); MCHC 33.2 g/dl (32.0-35.9); MEAN CELL VOLUME 86.7 fl (80-96); PLATELET COUNT 204 K/MM3 (134-434); RBC 4.93 M/mm3 (4.00-5.60); RDW 12.9 % (11.9-15.9); WHITE BLOOD COUNT 9.9 K/mm3 (4.0-10.0)
[2019-09-02 10:52] LABS: BLOOD UREA NITROGEN 16.7 mg/dL (7-18); CALCIUM 8.9 mg/dL (8.5-10.1); CREATININE 0.9 mg/dL (0.55-1.3); POTASSIUM 3.7 mmol/L (3.5-5.1)
--- NOTE | 2019-09-02 11:44 | PN ---
Progress Note (short form) - Note Progress Note: NEUROSURGERY POD #3 Walked with Pt yesterday Incisional pain better than yesterday Left calf and hip pain overnight; some R ankle swelling, no C/P or dyspnea at bedside PE: Tmax 99, AF, VSS CV- RR; Lungs- CTA B; Abd-benign; Ext- no sign of DVT; no ankle swelling CN- intact; Motor- R EHL 2/5; R TA 2-3, PF/IP 4-; remainder 4+; Sensation- residual numbness R L4-5 Dressing with no drainage WBC 9.9 Cont Neurontin 300 mg po tid Light activity only SCD's Encouraged R foot ROM/ foot elevation when lying/sitting down Pain meds prn Monitor wound Incentive spirometry Activity d/w pt D/c instructions given
[2019-09-02 13:04] VITALS: BP 136/79; PULSE 92
--- NOTE | 2019-09-02 14:49 | DS ---
Physical Exam: SUBJECTIVE: Patient seen and examined. No acute events overnight. Endorses mild numbness in R foot. No fevers or chills. Ambulated with PT yesterday with minimal pain. OBJECTIVE: Vital Signs Period Temp Pulse Resp BP Sys/Baker Pulse Ox Last 24 Hr 98.1 F-99 F 82-104 20-20 105-136/61-79 98-98 PHYSICAL EXAM GENERAL: The patient is awake, alert, and fully oriented, in no acute distress. HEAD: Normal with no signs of trauma. EYES: PERRL, extraocular movements intact, sclera anicteric, conjunctiva clear. No ptosis. ENT: Ears normal, nares patent, oropharynx clear without exudates, moist mucous membranes. NECK: Trachea midline, full range of motion, supple. LUNGS: Breath sounds equal, clear to auscultation bilaterally, no wheezes, no crackles, no accessory muscle use. HEART: Regular rate and rhythm, S1, S2 without murmur, rub or gallop. ABDOMEN: Soft, nontender, nondistended, normoactive bowel sounds, no guarding, no rebound, no hepatosplenomegaly, no masses. EXTREMITIES: 2+ pulses, warm, well-perfused, no edema. Full ROM. Decreased strength in BLE post-op 2/2 pain. NEUROLOGICAL: Cranial nerves II through XII grossly intact. Normal speech, steady slow gait and weight-bearing. Decreased sensation in BLE. PSYCH: Normal mood, normal affect. SKIN: Warm, dry, normal turgor, no rashes or lesions noted. Surgical dressing on back is has mild drainage. LABS Laboratory Results - last 24 hr 09/02/19 09/02/19 09:36 09:36 WBC 9.9 RBC 4.93 Hgb 14.2 Hct 42.8 MCV 86.7 MCH 28.8 MCHC 33.2 RDW 12.9 Plt Count 204 MPV 9.0 Sodium 140 Potassium 3.7 Chloride 104 Carbon Dioxide 24 Anion Gap 11 BUN 16.7 Creatinine 0.9 Est GFR (CKD-EPI)AfAm 110.27 Est GFR (CKD-EPI)NonAf 95.14 Random Glucose 113 H Calcium 8.9 HOSPITAL COURSE: Date of Admission:08/30/19 Mr. Ross is a 54 year old PMH of multiple spinal surgeries x5, paroxysmal AFib (s/p ablation x2), HLD presents with worsening R leg pain and altered sensation s/p fall onto R side 2 weeks ago. An lumbar MRI shows disc protrusion causing stenosis of L5, R neural foraminal narrowing; enhanching granulation tissue surround R S1 nerve. He underwent a R L4/L5 laminectomy for decompression of roots & thecal sac, lysis of adhesion by Dr. Perkins. There were no complications. Pt was seen by PT and able to ambulate with a cane. He is clinically stable to be discharged home to follow up with Dr. Perkins as an outpatient. He was provided instructions for PT and prescribed with antibiotics to prevent post-op infection. Lumbar MRI: disc protrusion causing stenosis of L5, R neural foraminal narrowing ; enhanchin granulation tissue surround R S1 nerve Date of Discharge: 09/02/19 Minutes to complete discharge: 45 Discharge Summary Problems reviewed: Yes Reason For Visit: BACK PAIN Condition: Stable - Instructions Diet, Activity, Other Instructions: You were admitted to the hospital to receive surgery on your spine (Lumbar Decompression) Post-op care as follows: Diet: Regular Activity: Out of bed with back brace. May shower but keep incision line dry. Change dressing afterwards. Restrictions: Do not lift anything over 10lbs. Additional Instructions: Keep incision line clean and dry. Change dressing daily. Report any chills, fever (101.5 or greater), any wound drainage, any neurological changes, leg swelling, chest pain, dyspnea to Dr. Perkins. Do not drive for two weeks.You were admitted to the hospital for spinal surgery. Keep right leg elevated when lying down Continue right foot ROM self-exercises Initial postop appt: Call Dr Perkins's office to be seen in about 2 week Medications: >>Take Neurontin 300mg three times a day and 5mg of Oxycodone as needed for pain. We provided you with a prescription. >>Take Levaquin 500mg daily for 7 days. This is an antibiotic which will help prevent infection of your surgical incision. >>Resume all home medications as prescribed. Follow up: >>Your primary care provider in one week >>Dr. Perkins, Neurosurgery, in 2 weeks. Return to the emergency department if you experience and worsening of pain, fevers, chills, or any other symptoms. Referrals: Roberth Perkins MD [Staff Physician] - 1 Week Disposition: HOME - Home Medications Comprehensive Discharge Medication List: Ambulatory Orders Atorvastatin Ca [Lipitor] 20 mg PO DAILY 12/03/13 Aspirin [Aspirin EC] 81 mg PO DAILY 05/24/15 Walker [Ultra-Light Rollator] 1 each MC DAILY #1 each 09/01/19 Gabapentin [Neurontin -] 300 mg PO TID 30 Days #90 capsule MDD 3 09/02/19 Levofloxacin [Levaquin] 500 mg PO DAILY 7 Days #7 tablet MDD 1 09/02/19 oxyCODONE HCL [Roxicodone -] 5 mg PO Q4H PRN 7 Days #42 tablet MDD 6 09/02/19 This patient is new to me today: No Emergency Visit: No Critical Care patient: No - Discharge Referral Referred to [facility] Med P.C[facility] No ATTENDING PHYSICIAN STATEMENT I saw and evaluated the patient. I reviewed the resident's note and discussed the case with the resident. I agree with the resident's findings and plan as documented. SUBJECTIVE: OBJECTIVE: ASSESSMENT AND PLAN:
--- NOTE | 2019-09-02 17:15 | PN ---
Teaching Attending Note Name of Resident: Mary Dennison ATTENDING PHYSICIAN STATEMENT I saw and evaluated the patient. I reviewed the resident's note and discussed the case with the resident. I agree with the resident's findings and plan as documented. SUBJECTIVE: Pain and mobility generally improved. Still has altered sensation RLE but improved. No bladder/bowel dysfunction. OBJECTIVE: Afebrile, hemodynamically Stable. Last Vital Signs Temp Pulse Resp BP Pulse Ox 98.1 F 92 H 20 136/79 98 09/02/19 10:00 09/02/19 10:00 09/02/19 10:00 09/02/19 10:00 09/02/19 09:00 Heart - S1, S2, RRR Lungs - clear to auscultation Abdomen - soft, non-tender. Bowel Sounds normal. Extremities - No edema, no calf tenderness. Neuro - AAO x 3. good power bilateral LEs. Altered sensation RLE - improving. MS - Wound not visualized. Exam as per NeuroSx. Laboratory Results - last 24 hr 09/02/19 09/02/19 09:36 09:36 WBC 9.9 RBC 4.93 Hgb 14.2 Hct 42.8 MCV 86.7 MCH 28.8 MCHC 33.2 RDW 12.9 Plt Count 204 MPV 9.0 Sodium 140 Potassium 3.7 Chloride 104 Carbon Dioxide 24 Anion Gap 11 BUN 16.7 Creatinine 0.9 Est GFR (CKD-EPI)AfAm 110.27 Est GFR (CKD-EPI)NonAf 95.14 Random Glucose 113 H Calcium 8.9 Home Medications Medication Instructions Recorded Atorvastatin Ca [Lipitor] 20 mg PO DAILY 12/03/13 Aspirin [Aspirin EC] 81 mg PO DAILY 05/24/15 Walker [Ultra-Light Rollator] 1 each MC DAILY #1 each 09/01/19 Gabapentin [Neurontin -] 300 mg PO TID 30 Days #90 capsule 09/02/19 MDD 3 Levofloxacin [Levaquin] 500 mg PO DAILY 7 Days #7 tablet 09/02/19 MDD 1 oxyCODONE HCL [Roxicodone -] 5 mg PO Q4H PRN 7 Days #42 tablet 09/02/19 MDD 6 ASSESSMENT AND PLAN: 56 year old male with history of DJD Spine s/p multiple spinal surgeries, Paroxysmal Atrial fibrillation (s/p Ablation x 2), chronic paresthesia/weakness RLE, presents with worsening RLE pain and altered sensation s/p fall onto R side 2 weeks ago. MRI Lumbar Spine - showed disc protrusion causing stenosis of L5, R neural foraminal narrowing; enhancing granulation tissue surrounding R S1 nerve; midline, R paracentral annular bulge w/ T2 hyperintensity in posterior annulus. 1. DJD Spine/Lumbar radiculopathy secondary to lumbar stenosis POD 2 s/p repeat R L4/5- laminectomies, discectomy for R L4-5 HNP/foot drop Nic-op prophylactic Vanco completed as per NeurSx, who prescribed another 7 days Levofloxacin. 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 Tolerating PT well, ambulating with cane. Further recs as per neuroSx, who will follow patient in the office for wound check and dressing changes. 2. Paroxysmal Atrial Fibrillation Currently in SR. Aspirin held nic-operatively. 3. HLD - Continue Lipitor 20mg. Medically Stable for discharge wit Neurosurgery follow up and outpatient PT.
== END 2019-09-02 12:53 | disposition home or self-care (01) | DRG 460 ==
LOC: JER 06:25 → JERBED 18:51 → J8W 22:26
PROVIDERS: ADMIT Neurological Surgery
PROC: 0SB20ZZ Excision of Lumbar Vertebral Disc, Open Approach (ICD-10-PCS; 2019-08-30)
PROC: 01NB0ZZ Release Lumbar Nerve, Open Approach (ICD-10-PCS; 2019-08-30)
PROC: 0SG0071 Fusion of Lumbar Vertebral Joint with Autologous Tissue Substitute, Posterior Approach, Posterior Column, Open Approach (ICD-10-PCS; principal; 2019-08-30 15:00)
DX: M48.061 Spinal stenosis, lumbar region without neurogenic claudication (principal); M51.16 Intervertebral disc disorders with radiculopathy, lumbar region; M21.379 Foot drop, unspecified foot; I48.0 Paroxysmal atrial fibrillation; E78.5 Hyperlipidemia, unspecified; M51.26 Other intervertebral disc displacement, lumbar region
CPT/HCPCS: 36415; 72100-TC-FY; 72158-TC; 76857; 80048; 80053; 81003; 85025; 85027; 85610; 85730; 86850; 86900; 86901; 87086; 88304-TC; 93005; 93010; 94760; 97116-GP; 97161-GP; 99283-25; J0131; J7030

== ENCOUNTER 2019-09-28 09:18 | Inpatient (IN) | payer BC ==
[2019-09-28 09:23] VITALS: BMI 31.9
--- NOTE | 2019-09-28 09:47 | PDOC ---
History of Present Illness - General Chief Complaint: Back Pain Stated Complaint: LOWER BACK PAIN Time Seen by Provider: 09/28/19 09:33 History Source: Patient - History of Present Illness Occurred: reports: other Severity: reports: severe Past History - Past Medical History Allergies/Adverse Reactions: Allergies Allergy/AdvReac Type Severity Reaction Status Date / Time Penicillins Allergy Mild Rash Verified 09/28/19 09:23 Home Medications: Ambulatory Orders Atorvastatin Ca [Lipitor] 20 mg PO DAILY 12/03/13 Aspirin [Aspirin EC] 81 mg PO DAILY 05/24/15 Gabapentin [Neurontin -] 300 mg PO TID 30 Days #90 capsule MDD 3 09/02/19 oxyCODONE HCL [Roxicodone -] 5 mg PO Q4H PRN 7 Days #42 tablet MDD 6 09/02/19 Tapentadol Hydrochloride [Nucynta -] 1 tab PO QID PRN 09/28/19 Anemia: No Asthma: No Cancer: No Cardiac Disorders: Yes (A.Fib) CVA: No COPD: No CHF: No Dementia: No Diabetes: No GI Disorders: No Disorders: No HTN: Yes Hypercholesterolemia: Yes Liver Disease: No Seizures: No Thyroid Disease: No - Surgical History Abdominal Surgery: Yes (umbilical hernia) Appendectomy: Yes Cardiac Surgery: Yes (ABLATION) Cholecystectomy: No Lung Surgery: No Neurologic Surgery: No Orthopedic Surgery: Yes (CERVICAL DISC SX X3) - Immunization History Td Vaccination: Yes TDAP Vaccination: Yes Immunization Up to Date: Yes - Psycho Social/Smoking Cessation Hx Smoking Status: No Smoking History: Never smoked Years of Tobacco Use: 0 Have you smoked in the past 12 months: No Number of Cigarettes Smoked Daily: 0 Cigars Per Day: 0 Hx Alcohol Use: No Drug/Substance Use Hx: No Substance Use Type: None Hx Substance Use Treatment: No Review of Systems - Review of Systems Constitutional: No: Chills, Fever ABD/GI: No: Nausea, Vomiting, Abdominal cramping : No: Dysuria Musculoskeletal: Yes: Back Pain. No: Muscle Weakness Neurological: No: Numbness, Tingling *Physical Exam - Vital Signs Last Vital Signs Temp Pulse Resp BP Pulse Ox 97.7 F 78 14 137/69 96 09/28/19 09:20 09/28/19 09:20 09/28/19 09:20 09/28/19 09:20 09/28/19 09:20 - Physical Exam General Appearance: Yes: Appropriately Dressed, Mild Distress HEENT: positive: Normal Voice Neck: positive: Supple Respiratory/Chest: negative: Respiratory Distress Gastrointestinal/Abdominal: positive: Normal Bowel Sounds, Soft. negative: Tender, Pulsatile Mass, Distended, Guarding, Rebound Musculoskeletal: positive: Vertebral Tenderness (ro R lower back). negative: CVA Tenderness Integumentary: positive: Dry, Warm Neurologic: positive: Fully Oriented, Alert, Normal Mood/Affect ED Treatment Course - LABORATORY CBC & Chemistry Diagram: 09/28/19 10:20 09/28/19 09:54 Medical Decision Making - Medical Decision Making 09/28/19 09:40 56 yo M, afib s/p (ablation x 2), DJD, s/p multiple cspine and LS spine, s/p recent laminectomy by Dr Garrido of ortho spine at [facility] (08/21), on narcotics for pain, here w/ continued R lower back pain radiating to RLE. Has ongoing R foot drop despite recent surgery per pt. Otherwise no acute neuro sxs, i.e new right lower extremity weakness, bowel or bladder incontinence or saddle anesthesia. States he had an MRI 09/21 which showed recurrent herniated disc and "some other things" per pt. States Dr Garrido sent him in for another surgical procedure see exam Persistent RLE radiculopathy despite multiple surgeries, including recent laminectomy at [facility] w/ Dr Garrido On narcotic w/ no relief MRI last week w/ recurrent bulging disc, etc No acute neuro sxs to suspect cauda equina at this time -pain control -pre-op labs -discuss dispo w/ Dr garrido 09/28/19 11:[address] Garrido who states recent MRI showed recurrent disc herniation with fluid collection, etc. States patient on the list for OR at 8 AM for spinal fusion. Discussed with hospitalist and preop lab ordered. Will continue to manage pain in ER Discharge - Discharge Information Problems reviewed: Yes Clinical Impression/Diagnosis: Low back pain Qualifiers: Chronicity: chronic Back pain laterality: unspecified Sciatica presence: unspecified whether sciatica present Qualified Code(s): M54.5 - Low back pain Radiculopathy Qualifiers: Spinal region: lumbar Qualified Code(s): M54.16 - Radiculopathy, lumbar region Condition: Fair - Admission Yes - Follow up/Referral - Patient Discharge Instructions - Post Discharge Activity
[2019-09-28] MEDS ORDERED: morphine CARPU-JECT 4 MG/1 ML DISP.SYRIN IVPUSH ONE (09:49)
[2019-09-28] MEDS ORDERED: MORPHINE SULFATE 2 MG/ML VIAL ONE ×2 (10:29→22:14)
[2019-09-28 10:39] LABS: BASO % 0.6 % (0-2.0); EOS % 2.9 % (0-4.5); HEMATOCRIT 43.4 % (35.4-49); HEMOGLOBIN 14.8 GM/dL (11.7-16.9); LYMPH % 37.8 % (8-40); MCHC 34.1 g/dl (32.0-35.9); MEAN CELL VOLUME 85.1 fl (80-96); MEAN PLT VOLUME 8.9 fl (7.5-11.1); MONO % 8.3 % (3.8-10.2); NEUT % 50.4 % (42.8-82.8); PLATELET COUNT 176 K/MM3 (134-434); RDW 13.1 % (11.9-15.9); WHITE BLOOD COUNT 5.6 K/mm3 (4.0-10.0)
[2019-09-28 10:53] LABS: INR 0.96 (0.83-1.09); PROTHROMBIN TIME (PATIENT) 11.3 SEC (9.7-13.0)
[2019-09-28 10:59] LABS: BILIRUBIN,TOTAL 0.6 mg/dL (0.2-1); BLOOD UREA NITROGEN 19.8 mg/dL (7-18); CALCIUM 9.3 mg/dL (8.5-10.1); POTASSIUM 4.3 mmol/L (3.5-5.1); TOT PROT 6.8 g/dl (6.4-8.2)
[2019-09-28] MEDS ORDERED: SODIUM CHLORIDE 1,000 ML IV SCH (13:00)
[2019-09-28] MEDS ORDERED: MORPHINE SULFATE 2 MG/ML VIAL IVPUSH PRN (13:01)
--- NOTE | 2019-09-28 13:10 | HP ---
<Purnima Espinoza - Last Filed: 09/28/19 19:27> Hospitalist Medicine Admission 54 y/o M with PMH afib s/p (ablation x 2; was on a/c previously. only on asa now ), DJD, HLD, s/p multiple c-spine and L-S spine surgeries (6 total), s/p recent laminectomy by Dr. Perkins (08/2019), who presents for continued R lower back pain radiating to his RLE. States that it has been a/w R foot drop, despite recent surgery, and feels as if he has "shooting pains." Went to Dr. Perkins's office last wk, underwent MRI showing recurrent disc herniation with fluid collection and is scheduled for 8AM spinal fusion tomorrow. Pt denies ASHLEY, fever, chills, SOB, chest pain or pressure or changes in urinary or bowel function. Pre-op labs have been completed. PMH: as above PsxH: as above meds: confirmed with pt; lipitor, asa 81, neurontin, was on roxicodone, and nucynta for pain control allergies: PCN - rash during childhood FH: esophageal CA father, mother and father - cardiac dz SH: works two jobs for [employer] and [employer]. Denies alcohol, cigarette, or drug use Allergies Penicillins Allergy (Mild, Verified 09/28/19 09:23) Rash HOME MEDICATIONS: Home Medications Medication Instructions Recorded Atorvastatin Ca [Lipitor] 20 mg PO DAILY 12/03/13 Aspirin [Aspirin EC] 81 mg PO DAILY 05/24/15 Gabapentin [Neurontin -] 300 mg PO TID 30 Days #90 capsule 09/02/19 MDD 3 oxyCODONE HCL [Roxicodone -] 5 mg PO Q4H PRN 7 Days #42 tablet 09/02/19 MDD 6 Tapentadol Hydrochloride [Nucynta 1 tab PO QID PRN 09/28/19 -] PHYSICAL EXAMINATION Vital Signs - 24 hr 09/28/19 09:20 Temperature 97.7 F Pulse Rate 78 Respiratory 14 Rate Blood Pressure 137/69 O2 Sat by Pulse 96 Oximetry (%) GENERAL: resting comfortably, in NAD HEENT: NCAT, PERRLA neck: supple cardio: S1, S2, RRR. no r/m/g; in sinus pulm: CTA b/l. no accessory m usage abdomen: nontender, nondistended LE: 2+ pulses, no edema Neuro: Supervisor Dry Paste 2-12 grossly intact. +RLE foot drop, decreased sensation from R haines. Motor strength LLE 4/5, R motor strength 1-2/5. Laboratory Results - last 24 hr 09/28/19 09/28/19 09/28/19 09:54 10:20 10:20 WBC 5.6 RBC 5.10 Hgb 14.8 Hct 43.4 MCV 85.1 MCH 29.0 MCHC 34.1 RDW 13.1 Plt Count 176 MPV 8.9 Absolute Neuts (auto) 2.8 Neutrophils % 50.4 D Lymphocytes % 37.8 D Monocytes % 8.3 D Eosinophils % 2.9 D Basophils % 0.6 D Nucleated RBC % 0 PT with INR INR Sodium 138 Potassium 4.3 Chloride 107 Carbon Dioxide 29 Anion Gap 2 L BUN 19.8 H Creatinine 1.0 Est GFR (CKD-EPI)AfAm 97.08 Est GFR (CKD-EPI)NonAf 83.76 Random Glucose 95 Calcium 9.3 Total Bilirubin 0.6 AST 14 L ALT 37 Alkaline Phosphatase 77 Total Protein 6.8 Albumin 4.0 Blood Type B POSITIVE Antibody Screen Negative 09/28/19 10:20 PT with INR 11.30 INR 0.96 CXR: no acute pathology, previous lower neck fusion hardware EKG: requested, pending ASSESSMENT/PLAN: 54 y/o M with PMH afib s/p (ablation x 2; was on a/c previously. only on asa now ), DJD, HLD, s/p multiple c-spine and L-S spine surgeries (6 total), s/p recent laminectomy by Dr. Perkins (08/2019), who presents for continued R lower back pain radiating to his RLE. #RLE radiculopathy -for spinal fusion sx with Dr. Perkins tomorrow -NPO after MN -pre-op labs complete, f/u AM labs -EKG requested, pending -morphine 2mg IVP q6h PRN for pain control -started on senna, colace for bowel regimen while on opiod -started on IVF -rest per neurosx -neurosx: Dr. Perkins #hx afib -received ablation x 2 previously -has been asymptomatic, and off a/c since controlled by ablation -cardio is Dr. Almonte at [facility] -hold asa pre-op, can restart after #HLD -c/w statin #F/E/N IV NS 75 cc/hr continue to follow lytes na controlled/low cholesterol diet, NPO after MN for sx #PPX DVT: SCD's/ mechanical for now #Dispo admit to med/surg for sx tomorrow 8AM Visit type - Emergency Visit Emergency Visit: Yes ED Registration Date: 09/28/19 Care time: The patient presented to the Emergency Department on the above date and was hospitalized for further evaluation of their emergent condition. - New Patient This patient is new to me today: Yes Date on this admission: 09/28/19 - Critical Care Critical Care patient: No <Kushal Morin - Last Filed: 10/01/19 07:53> Presents pending neurosurgical procedure with Dr. Perkins. Has profressive myelopathic symptos with foot drop. Pain controlled. No new injuries or diagnoses. Agree with the assessment as per the resident note. Not on AC aside from ASA with his hx of afib. 10 sys ROS done and negative aside from HPI Allergies Penicillins Allergy (Mild, Verified 09/28/19 09:23) Rash HOME MEDICATIONS: Home Medications Medication Instructions Recorded Atorvastatin Ca [Lipitor] 20 mg PO DAILY 12/03/13 Aspirin [Aspirin EC] 81 mg PO DAILY 05/24/15 Gabapentin [Neurontin -] 300 mg PO TID 30 Days #90 capsule 09/02/19 MDD 3 oxyCODONE HCL [Roxicodone -] 5 mg PO Q4H PRN 7 Days #42 tablet 09/02/19 MDD 6 Tapentadol Hydrochloride [Nucynta 1 tab PO QID PRN 09/28/19 -] PHYSICAL EXAMINATION Vital Signs - 24 hr 09/28/19 09/28/19 09/28/19 09:20 16:57 22:08 Temperature 97.7 F 98.7 F Pulse Rate 78 Pulse Rate [ 75 76 Left Radial] Respiratory 14 12 Rate Blood Pressure 137/69 Blood Pressure 128/67 103/67 [Right Arm] O2 Sat by Pulse 96 96 95 Oximetry (%) GENERAL: Awake, alert, and fully oriented, in no acute distress. HEAD: Normal with no signs of trauma. EYES: Pupils equal, round and reactive to light, extraocular movements intact, sclera anicteric, conjunctiva clear. No lid lag. EARS, NOSE, THROAT: Ears normal, nares patent, oropharynx clear without exudates. Moist mucous membranes. NECK: Normal range of motion, supple without lymphadenopathy, JVD, or masses. LUNGS: Breath sounds equal, clear to auscultation bilaterally. No wheezes, and no crackles. No accessory muscle use. HEART: Regular rate and rhythm, normal S1 and S2 without murmur, rub or gallop. ABDOMEN: Soft, nontender, not distended, normoactive bowel sounds, no guarding, no rebound, no masses. No hepatomegaly or splenomegaly. MUSCULOSKELETAL: Normal range of motion at all joints with slight restriction in affected ext. 2/2 pain No bony deformities or tenderness. No CVA tenderness. NEUROLOGICAL: Cranial nerves II-XII intact. Normal speech. Gait not assessed but asymetric flex/ext at the hip. PSYCHIATRIC: Cooperative. Good eye contact. Appropriate mood and affect. SKIN: Warm, dry, normal turgor, no rashes or lesions noted, normal capillary refill. Laboratory Results - last 24 hr 09/28/19 09/28/19 09/28/19 09:54 10:20 10:20 WBC 5.6 RBC 5.10 Hgb 14.8 Hct 43.4 MCV 85.1 MCH 29.0 MCHC 34.1 RDW 13.1 Plt Count 176 MPV 8.9 Absolute Neuts (auto) 2.8 Neutrophils % 50.4 D Lymphocytes % 37.8 D Monocytes % 8.3 D Eosinophils % 2.9 D Basophils % 0.6 D Nucleated RBC % 0 PT with INR INR Sodium 138 Potassium 4.3 Chloride 107 Carbon Dioxide 29 Anion Gap 2 L BUN 19.8 H Creatinine 1.0 Est GFR (CKD-EPI)AfAm 97.08 Est GFR (CKD-EPI)NonAf 83.76 Random Glucose 95 Calcium 9.3 Total Bilirubin 0.6 AST 14 L ALT 37 Alkaline Phosphatase 77 Total Protein 6.8 Albumin 4.0 Blood Type B POSITIVE Antibody Screen Negative 09/28/19 10:20 WBC RBC Hgb Hct MCV MCH MCHC RDW Plt Count MPV Absolute Neuts (auto) Neutrophils % Lymphocytes % Monocytes % Eosinophils % Basophils % Nucleated RBC % PT with INR 11.30 INR 0.96 Sodium Potassium Chloride Carbon Dioxide Anion Gap BUN Creatinine Est GFR (CKD-EPI)AfAm Est GFR (CKD-EPI)NonAf Random Glucose Calcium Total Bilirubin AST ALT Alkaline Phosphatase Total Protein Albumin Blood Type Antibody Screen Preop labs reviewed EKG reviewed Prior imaging reviewed ASSESSMENT/PLAN: Patient presents with progressive myelopathic symptoms with planned procedure with Dr. Perkins. He is stable with no ongoing contraindications to the surgical procedure. He has R-sided progressive chronic radicular pain with neuropathic components radiating from the back to the RLE. Agree with problem list per resident note; to OR tomorrow. I Have asked for the Lloyd and RCRI scores to be included in the resident note. Unsure why this not done, but is postoperative addendum no utility. Will discuss. ATTENDING PHYSICIAN STATEMENT I saw and evaluated the patient. I reviewed the resident's note and discussed the case with the resident. I agree with the resident's findings and plan as documented. SUBJECTIVE: OBJECTIVE: ASSESSMENT AND PLAN:
--- NOTE | 2019-09-28 13:34 | EKG ---
Test Reason : Blood Pressure : / mmHG Vent. Rate : 066 BPM Atrial Rate : 066 BPM P-R Int : 164 ms QRS Dur : 096 ms QT Int : 420 ms P-R-T Axes : 021 006 021 degrees QTc Int : 440 ms NORMAL SINUS RHYTHM NORMAL ECG WHEN COMPARED WITH ECG OF 30-AUG-2019 15:37, NO SIGNIFICANT CHANGE WAS FOUND Confirmed by MD BOB, RICHARDSON ([id number]) on 09/28/2019 1:34:18 PM Referred By: Confirmed By:RICHARDSON ROJAS MD
[2019-09-28] MEDS ORDERED: ATORVASTATIN CA 20 MG TABLET (FP) ONE (14:21)
[2019-09-28] MEDS ORDERED: DOCUSATE SODIUM 100 MG CAPSULE (FP) PO ONE (14:21)
[2019-09-28] MEDS ORDERED: GABAPENTIN 100 MG CAPSULE (FP) ONE ×2 (14:21→22:14)
[2019-09-28] MEDS: ATORVASTATIN CA 20 MG TABLET (FP) PO SCH (14:40)
[2019-09-28] MEDS: DOCUSATE SODIUM 100 MG CAPSULE (FP) PO SCH (14:40)
[2019-09-28] MEDS: GABAPENTIN 300 MG CAPSULE (FP) PO SCH ×2 (14:41→22:20)
--- NOTE | 2019-09-28 16:38 | PN ---
Progress Note (short form) - Note Progress Note: NEUROSURGERY Pt with recent repeat laminectomies and discectomy for marked foot drop and sciatica. Initial improvement but developed worsening of foot drop (R) and numbness with severe sciatica again. PE: General- unremarkable CN- intact; Motor- 5/5 except R EHL/TA 1-2/5; inv and ev 3/5, gastroc 4-; Numbness to LT R L5-S1 Incision C/D/I Labs reviewed MRI- small postop fluid colleciton; L4-5 disc protrusion extending into neuroforamen on R; stenosis Given recurrent sciatica and persistent deficits (foot drop), for OR for L4-5 decompression, interbody and posterolateral fusion, instrumentation, and all indicated procedures Risks: bleeding, infection, nerve injury, CSF leak, increased thromboembolic risks, pneumonia, and GA All questions answered Consent obtained OR in AM Intraop SSEP/EMG
[2019-09-28] MEDS ORDERED: SENNOSIDES 8.6MG TABLET (FP) PO ONE (22:14)
[2019-09-28] MEDS: SENNOSIDES 8.6MG TABLET (FP) PO SCH (22:20)
[2019-09-29] MEDS: GABAPENTIN 300 MG CAPSULE (FP) PO SCH ×3 (06:49→21:58)
[2019-09-29] MEDS ORDERED: THROMBIN (BOVINE) 5,000 UNIT VIAL TP ONE ×4 (07:07→10:40)
[2019-09-29] MEDS ORDERED: BACITRACIN 15 GM TUBE TOPICAL OINTMENT ONE (07:07)
[2019-09-29] MEDS ORDERED: BUPIVACAINE HCL/PF 0.5% (5 MG/ML) 30 ML VIAL IJ ONE (07:08)
[2019-09-29 07:25] LABS: BASO % 0.5 % (0-2.0); EOS % 2.8 % (0-4.5); HEMATOCRIT 39.9 % (35.4-49); HEMOGLOBIN 13.6 GM/dL (11.7-16.9); MCH 29.3 pg (25.7-33.7); MCHC 34.2 g/dl (32.0-35.9); MEAN CELL VOLUME 85.6 fl (80-96); MEAN PLT VOLUME 9.4 fl (7.5-11.1); MONO % 7.6 % (3.8-10.2); NEUT % 50.1 % (42.8-82.8); PLATELET COUNT 159 K/MM3 (134-434); RBC 4.66 M/mm3 (4.00-5.60); WHITE BLOOD COUNT 6.7 K/mm3 (4.0-10.0)
[2019-09-29 07:40] LABS: INR 0.97 (0.83-1.09); PROTHROMBIN TIME (PATIENT) 11.4 SEC (9.7-13.0)
[2019-09-29 07:43] LABS: ACTIVATED PTT 29.8 SECONDS (25.2-36.5)
[2019-09-29 07:55] LABS: ALBUMIN 3.4 g/dl (3.4-5.0); BILIRUBIN,TOTAL 0.7 mg/dL (0.2-1); CALCIUM 8.7 mg/dL (8.5-10.1); CREATININE 0.9 mg/dL (0.55-1.3); MAGNESIUM 2.3 mg/dL (1.8-2.4); PHOSPHOROUS 4.1 mg/dL (2.5-4.9); POTASSIUM 4.1 mmol/L (3.5-5.1); TOT PROT 5.8 g/dl (6.4-8.2)
[2019-09-29] MEDS ORDERED: MIDAZOLAM HCL 2 MG/2 ML SINGLE DOSE VIAL ONE ×2 (07:56)
[2019-09-29] MEDS ORDERED: ROCURONIUM BROMIDE 50 MG/5 ML SYRINGE ONE (07:57)
[2019-09-29] MEDS ORDERED: fentaNYL CITRATE 250 MCG/5 ML VIAL ONE (07:57)
[2019-09-29] MEDS ORDERED: PROPOFOL 20 ML ONE ×18 (07:57→11:31)
[2019-09-29] MEDS ORDERED: VANCOMYCIN 1,000 MG VIAL (RESTRICTED TO ID ONLY) IVPB ONE (08:30)
[2019-09-29] MEDS ORDERED: GELATIN SPONGE,ABSORBABLE 1 GM PACKET TP ONE (08:57)
[2019-09-29] MEDS ORDERED: BACITRACIN 50,000 UNITS VIAL TP ONE (08:57)
--- NOTE | 2019-09-29 10:27 | PN ---
Progress Note (short form) - Note Progress Note: Hospitalist Medicine Wilfredo in PACU. In good spirits, able to move UE, LE. On 2nd unit PRBCs for PPX. Quintana with good UO, and LISA drain. Vitals 09/29/19 05:40 Temperature 97.4 F L Pulse Rate [ 68 Left Radial] Respiratory 18 Rate Blood Pressure 103/60 [Right Arm] O2 Sat by Pulse 100 Oximetry (%) 09/29/19 09/29/19 15:33 15:40 Temperature 98.6 F Pulse Rate 99 H Respiratory 16 Rate Blood Pressure 112/66 Physical Exam General: resting comfortably, in NAD HEENT: NCAT, PERRLA neck: supple cardio: S1, S2 RRR. no r/m/g abdomen: nontender, nondistended dressing: c/d/i. MSK: +able to move UE, LE. neuro: systems manager 2-12 grossly intact, motor strength 5/5 LE, 3-4/5 RLE, +decreased sensation R haines Laboratory Tests 09/29/19 09/29/19 09/29/19 06:00 06:00 06:00 WBC 6.7 Hgb 13.6 Hct 39.9 Plt Count 159 PT with INR 11.40 INR 0.97 PTT (Actin FS) 29.8 Sodium 140 Potassium 4.1 Chloride 108 H Carbon Dioxide 28 BUN 15.0 Creatinine 0.9 Random Glucose 85 AST 11 L ALT 29 Albumin 3.4 09/28/19: CXR: no acute pathology. previous neck fusion hardware 09/29/19: Lumbar XR: two views of lumbar spine have been obtained with needle at level of L4. Assessment/plan 54 y/o M with PMH afib s/p (ablation x 2; was on a/c previously. only on asa now ), DJD, HLD, s/p multiple c-spine and L-S spine surgeries (6 total), s/p recent laminectomy by Dr. Perkins (08/2019), who presents for continued R lower back pain radiating to his RLE. #RLE radiculopathy s/p repeat laminectomy and fusion w/ instrumentation L4-L5 - PO Day 0 -tolerated sx well, s/p 2U prbcs (prophylactic) H/H stable -on DATABASES SOFTWARE CONSULTANT pump for pain control -started on senna, colace, dulcolax. for bowel regimen -on IVF, incentive jessy -monitor LISA drain output, UO w/ quintana -started on IV vanco (Day 1) -rest per neurosx post-op -PT -f/u repeat imaging tomorrow (10am) -neurosx: Dr. Perkins #hx afib -received ablation x 2 previously -has been asymptomatic, and off a/c since controlled by ablation -cardio is Dr. Almonte at [facility] -asa still held #HLD -c/w statin #F/E/N D51/2NS +20 meq Kcl continue to follow lytes NPO advance per sx, w / flatus #PPX DVT: SCD's/ mechanical for now #Dispo cont'd monitoring on med/surg <Purnima Espinoza - Last Filed: 09/29/19 16:59> - Note Progress Note: Seen and examined; all delatorre historical findings and physical exam findings independently verified alongside all imaging, labs, and diagnostics. Agree with above documentation aside from as supplemented by myself. Discussed at length with resident team. Seen and examined preop; no new findings. Hemodynamics stable. Pending repeal laminectomy for myelopathic symptoms. VS, labs, imaging reviewed NAD, AAO, resting in bed NC AT EOMI PERRLA Trachea midline, no LN, no JVD CN2-12 wnl, no fnd HR wnl, s1/2+ Lungs CTAB, w/ sym exp NT ND +BS Aforementioned foot drop noted with no focal further neuro sx; otherwise moves all 4 ext, normal muscle tone. A/P: 54 y/o M with PMH afib s/p (ablation x 2; was on a/c previously. only on asa now ), DJD, HLD, s/p multiple c-spine and L-S spine surgeries (6 total), s/p recent laminectomy by Dr. Perkins (08/2019), who presents for continued R lower back pain radiating to his RLE. #RLE radiculopathy s/p repeat laminectomy and fusion w/ instrumentation L4-L5 - PO Day 0 -Status post multiple spinal cergeries (Cervical, lumbosacral. No new issues with the old sites noted) -tolerated sx well, s/p 2U prbcs (prophylactic) -S/P PRBC xf (given preop ppx; no complications evident) -Hx Afib s/p ablation x2 (No home AC aside from ASA which was appropriately help preop-restart per nsgy) -Hx HLD (Continue home statin, FU FLP OP) -Hx DJD (Other sites, nonacute, PRN management) <Kushal Morin - Last Filed: 10/02/19 09:15>
[2019-09-29] MEDS ORDERED: BUPIVACAINE HCL/PF 0.5% (5MG/ML) 10 ML VIAL IJ ONE ×2 (12:24)
[2019-09-29] MEDS ORDERED: BACITRACIN 15 GM TUBE TOPICAL OINTMENT TP ONE ×2 (12:25)
[2019-09-29] MEDS ORDERED: ONDANSETRON 4 MG/2 ML VIAL IVPUSH PRN ×3 (12:40→13:12)
[2019-09-29] MEDS ORDERED: BISACODYL 10 MG SUPP.RECT RC PRN (12:40)
--- NOTE | 2019-09-29 12:40 | OP ---
Operative Note - Note: Operative Date: 09/29/19 Pre-Operative Diagnosis: Recurrent L4-5 HNP, recurrent foot drop Operation: Redo and expansion of prior L4 and L5 laminectomies, facetectomies L4 -5, N L4-5 and L5-S1 foramenotomies; decompression of thecal sac and B L4 and L5 roots; interbody fusion L4-5, Posterolateral fusion L4-5, instrumentation L4- 5, interbody implant L4-5; microdissection, autologous bone graft, fluoroscopy for pedicle screw placement Findings: Dense epidural fibrosis; Extruded disc in proximal neuroforamen on R Implants: COADE Spine Patricia 4.5 system; B 13 mm interbody implants Post-Operative Diagnosis: Same as Pre-op Surgeon: Roberth Perkins Oil Paint Shader: Valdo Oswald Anesthesiologist/PATIENT CARE COORDINATOR: Trang Scott MD Anesthesia: General Specimens Removed: L4-5 disc Estimated Blood Loss (mls): 750 Blood Volume Replaced (mls): 350
[2019-09-29] MEDS ORDERED: D5-1/2NS+20 MEQ KCL - 1,000 ML IV SCH (12:45)
--- NOTE | 2019-09-29 12:46 | PN ---
Progress Note (short form) - Note Progress Note: NEUROSURGERY In PACU AF, VSS; O2 sat 99% S/p repeat lami and fusion with instrumentation L4-5 for recurrent HNP and foot drop PE: General- unremarkable CN- intact; Motor- 5/5 except R EHL/TA 1-2/5; inv and ev 3/5, gastroc 4-; Numbness to LT R L5-S1 Dressing C/D/I Labs ordered FOOD TRADES ASSISTANTS for pain Valium for muscle relaxation Monitor wound Incentive spirometry Monitor drain output Intraop findings d/w family
[2019-09-29] MEDS ORDERED: DEXAMETHASONE SOD PHOSPHATE 4 MG/1 ML VIAL IVPUSH PRN (13:12)
[2019-09-29] MEDS ORDERED: LACTATED RINGERS SOLUTION 1,000 ML IV SCH (13:15)
[2019-09-29] MEDS: HYDROmorphone *PCA* 10MG/50ML DISP.SYRIN PCA SCH (13:38)
[2019-09-29 15:20] LABS: HEMATOCRIT 38.6 % (35.4-49); MCH 28.9 pg (25.7-33.7); MCHC 33.6 g/dl (32.0-35.9); MEAN PLT VOLUME 8.9 fl (7.5-11.1); PLATELET COUNT 139 K/MM3 (134-434); RBC 4.49 M/mm3 (4.00-5.60); RDW 12.9 % (11.9-15.9); WHITE BLOOD COUNT 9.1 K/mm3 (4.0-10.0)
[2019-09-29 15:43] LABS: BLOOD UREA NITROGEN 13.8 mg/dL (7-18); CALCIUM 8.1 mg/dL (8.5-10.1); CREATININE 0.9 mg/dL (0.55-1.3); POTASSIUM 4.2 mmol/L (3.5-5.1)
[2019-09-29] MEDS: D5-1/2NS+20 MEQ KCL - 20 MEQ/1,000 ML INFUS.BAG IV SCH (15:50)
[2019-09-29] MEDS: ATORVASTATIN CA 20 MG TABLET (FP) PO SCH (16:40)
[2019-09-29] MEDS: diazePAM 5 MG TABLET PO SCH ×2 (16:40→21:57)
[2019-09-29] MEDS: DOCUSATE SODIUM 100 MG CAPSULE (FP) PO SCH ×3 (16:40→21:57)
[2019-09-29] MEDS: SENNOSIDES 8.6MG TABLET (FP) PO SCH (21:57)
[2019-09-29] MEDS: VANCOMYCIN 1 GM in D5W (PRE-DOCKED) 1,000 MG/250 ML IVPB SCH (21:58)
--- NOTE | 2019-09-30 01:10 | OP ---
DATE OF OPERATION: 09/29/2019 PREOPERATIVE DIAGNOSES: 1. Recurrent L4-L5 herniated disk with extruded disk foramen and worsening foot drop. 2. History of right L4-L5 laminectomy and microdissection x2. 3. L4-L5 segmental instability. POSTOPERATIVE DIAGNOSES: 1. Recurrent L4-L5 herniated disk with extruded disk foramen and worsening foot drop. 2. History of right L4-L5 laminectomy and microdissection x2. 3. L4-L5 segmental instability. PROCEDURE: 1. Re-exploration, expansion of prior laminectomies on the right at L4 and L5 including facetectomy and foraminotomy to L4-L5 and L5-S1 for decompression of the thecal sac in the right L4 and L5 nerve roots (03629-22-TQ, and a 45938-02). 2. O'Brien of autologous laminar spinous process bone for posterior fusion ( [id number]). 3. Microsurgical dissection with operative microscope with microsurgical technique (84652). 4. Posterolateral fusion L4-L5 with autologous morcellized bone grafting (51449 ). 5. Posterior lumbar interbody fusion, L4-L5. 6. Posterior lumbar pedicle screw fixation system placement (70258) (Patricia 4.5 titanium system). 7. Utilization of intravertebral 13-mm prosthetic device bilaterally at L4-L5 (46839). 8. Intraoperative fluoroscopy for localization and pedicle screw placement (36212-12). ATTENDING SURGEON: Roberth Perkins M.D. CLINICAL RESEARCH SPEC: Valdo Oswald M.D. ANESTHESIA: General endotracheal anesthesia. ANESTHESIOLOGIST: Trang Scott M.D. ESTIMATED BLOOD LOSS: 750 mL. TRANSFUSIONS: 2 units packed red blood cells. FINDINGS: 1. Dense epidural fibrosis. 2. Extruded disk herniation in near neuroforamen on right side, L4-L5. 3. Stenosis bilateral L4 and L5 nerve roots. 4. Tight right L5-S1 neuroforamen. 5. Baseline attenuated bilateral lower extremity SSEP latency. INDICATION: The patient is a 54-year-old male who has previously undergone right L4-L5 laminectomy and partial L5 foraminectomy many years ago. About a month ago, he developed worsening foot drop and underwent right redo L4-L5 microdiskectomy. His condition improved initially, but he developed recurrent and intractable pain, as well as recurrent foot drop on right. MRI demonstrated broad-based disk protrusion, and a probable foraminal disk herniation. Because of these recurrent symptoms and the profound neurological deficit, he was admitted to the emergency room, where he underwent emergent right bilateral L4-L5 decompression, fusion, instrumentation. He is to undergo bilateral L4-L5 decompression and instrumentation. Risks of procedure include but are not limited to bleeding, infection, dural tear with CSF leak, neurologic injury, increased thromboemoblic risk, and other risk of general anesthesia. The patient understands indication for procedure, procedure in detail, risks and benefits, and alternative treatment for the lumbar condition and wishes to proceed. No guarantee was given for a favorable outcome. PROCEDURE IN DETAIL: After the patient was taken to the operating room, he was placed in supine position. After general anesthesia was induced and appropriate lines were placed, he was turned over in prone position on a Ed frame. All pressure points were checked and padded. Lumbar region cleaned with alcohol and prepped with Betadine. Local x-rays were obtained. Prior incision was used and approximately 1-inch cephalad extension. Some periosteal dissection was carried out with a periosteal elevator and monopolar electrocautery. Moderate epidural fibrosis was noted, and there was also significant venous oozing throughout. The facet joint at L3-L4 was skeletonized and preserved, and L4-L5 facet joint was also skeletonized. Two self-retaining retractors were inserted. At this point, localizing x-ray was obtained with the clamp in the L4-L5 interspinous space. After the ligament was resected with Leksell rongeur, spinous process at L4 as well as partial L5 was resected with Leksell rongeur, and then morcellized with the bone mill. Complete bilateral L4 laminectomy and partial bilateral L5 laminectomy was carried out and we were able to decompress the L4 and L5 nerve roots completely. Because of this epidural fibrosis a meticulous dissection was carried out with the use of operative microscope for both illumination and magnification. Microsurgical technique was utilized. A facetectomy was also carried out at the L4-L5 level allowing access to the lateral recess. Epidural hemostasis was difficult because of the significant venous oozing. This was accomplished with a thrombin-soaked powder Gelfoam as well as bipolar electrocautery. The lumbar nerve roots were rather sensitive to any mechanical manipulation. After decompression was completed, meticulously after lysis of adhesions, this annulus was incised on the left side with a number 10 blade and nerve root retraction. Serially, the larger disk space scraper was used from 6 up to 13 mm. A 14-mm distractor was used on the left side. Attention was turned to right side disk space, where thorough lysis of adhesions was needed in order to approach the L4-L5 disk space. The disk space was cleaned with serially larger disk space scraper up to 13 mm. Side cutting as well as down going and straight curets were used to clean disk space further. A pituitary rongeur used to remove the material. Interbody fusion was carried out at the L4-5 level with both interbody implants and autografts. A 13 x 25 mm interbody implant was inserted and countersunk by about 5 mm. Procedure then was repeated on the left side after distraction pluf was removed. Central portion of disc material was removed with downgoing curet and upgoing pituitary rongeur. It was impacted with autologous morcellized bone graft. Another 13 x 25 mm interbody implant was then inserted, and countersunk by about 7 mm. At this point, attention was turned to the entry point of pedicle screw. Microscope was moved out of the way and fluoroscope was first brought into AP position to ascertain the midline AP exposure. He was then turned over to lateral position and was sterilely draped. The entry point was marked with high-speed pneumatic drill, and handheld awl was used to create a pathway for pedicle screw. Approximately 8 degree to 10 degree medial angle was then taken. A 6.5 x 50 mm screw was used on the right, and a 6.5 x 45 mm screw was used on the left at L4. Bilateral L5 screws were 6.5 x 15 mm screws. The screw holes were palpated with probe finder prior to screw insertion. EMG threshold was 20 mA on the right L4 and bilateral L5, and 13 mA on left L4. The L4 pedicle was swapped out from the initial 6.5x 50 mm creww to 6.5 x45 mm screw and pedicle was thoroughly inspected and palpated and was found to be intact. At this point, wound was irrigated with antibiotic irrigation. Hemostasis was obtained with bipolar electrocautery. The 35-mm paulina was loaded on top of the screws and locked down with locking screws. The screws were compressed prior to final tightening. Torque wrench and counter torque wrench were used for final tightening. Because of the redo nature of the procedure, and extensive fibrosis, a thin layer of DuraSeal was laid in epidural spaces. This was done as a precaution. Bilateral foraminotomy had previously been performed at L4-L5 and L5-S1, especially on the right side where the patient had a foot drop. L5-S1 foramen in the region was also found to be stenotic and was opened up with curette and Kerrison rongeur as well as a high-speed pneumatic drill. At this point, 10 mL of 0.25% Marcaine was injected in paraspinal muscles. The wound was washed and irrigated, and then pulse lavaged. The posterolateral surface of the spine was decorticated with high-speed pneumatic drill and packed with autologous morcellized bone graft. This was done bilaterally. The patient tolerated the procedure well. At this point, dorsal lumbar hemostasis was obtained with bipolar electrocautery. There was moderate degree of venous oozing throughout the entire case. A 10 flat LISA drain was left in epidural space and came out through a right-sided stab incision. Dorsal lumbar musculature was approximated with 0 Vicryl suture, and dorsal lumbar fascia closed with 3-0 Vicryl suture similarly. Subcutaneous fascia was closed with 3-0 Vicryl suture, and skin was closed with 4-0 Vicryl running subcuticular suture. Steri-Strips and sterile occlusive dressing was applied. The patient tolerated the procedure well, and was returned back to supine position, and extubated. Intraoperative SSEP and EMG signals remained stable throughout. The patient received 1 dose of 1 g of vancomycin prior to incision. All needle and lap pad counts were correct. The OR timeout procedure was followed. The patient was starting to move bilateral upper and lower limbs very well, even in recovery room with the exception of the right-sided foot drop, which remains present. Ni CARLSON/[id number] cc: Valdo Oswald M.D. MTDD
[2019-09-30] MEDS: ACETAMINOPHEN 325 MG TABLET (FP) PO PRN ×2 (05:13→22:15)
[2019-09-30] MEDS: HYDROmorphone *PCA* 10MG/50ML DISP.SYRIN PCA SCH (06:24)
[2019-09-30] MEDS: GABAPENTIN 300 MG CAPSULE (FP) PO SCH ×3 (06:25→22:13)
[2019-09-30] MEDS: diazePAM 5 MG TABLET PO SCH ×4 (06:26→22:12)
[2019-09-30] MEDS: DOCUSATE SODIUM 100 MG CAPSULE (FP) PO SCH ×3 (06:26→22:13)
[2019-09-30] MEDS ORDERED: INSULIN (LEVEMIR) 100 UNITS/ML UNITS SQ ONE (07:14)
[2019-09-30 09:03] LABS: BASO % 0.3 % (0-2.0); EOS % 1.5 % (0-4.5); HEMATOCRIT 35.2 % (35.4-49); HEMOGLOBIN 12.2 GM/dL (11.7-16.9); LYMPH % 17.8 % (8-40); MCH 29.8 pg (25.7-33.7); MCHC 34.7 g/dl (32.0-35.9); MEAN PLT VOLUME 9.4 fl (7.5-11.1); MONO % 10.7 % (3.8-10.2); NEUT % 69.7 % (42.8-82.8); PLATELET COUNT 132 K/MM3 (134-434); RBC 4.09 M/mm3 (4.00-5.60); RDW 12.6 % (11.9-15.9); WHITE BLOOD COUNT 8.3 K/mm3 (4.0-10.0)
[2019-09-30 09:28] LABS: BLOOD UREA NITROGEN 9.1 mg/dL (7-18); CALCIUM 8.1 mg/dL (8.5-10.1); CREATININE 0.7 mg/dL (0.55-1.3); MAGNESIUM 1.8 mg/dL (1.8-2.4); PHOSPHOROUS 3.9 mg/dL (2.5-4.9); POTASSIUM 3.9 mmol/L (3.5-5.1)
[2019-09-30] MEDS: ATORVASTATIN CA 20 MG TABLET (FP) PO SCH (09:46)
[2019-09-30] MEDS: VANCOMYCIN 1 GM in D5W (PRE-DOCKED) 1,000 MG/250 ML IVPB SCH (09:59)
--- NOTE | 2019-09-30 09:59 | PN ---
Progress Note (short form) - Note Progress Note: NEUROSURGERY POD #1 Incisional pain, muscle spasm No sciatica Abdominal bloating Tmax 99.4, AF, VSS Drain 100/120 cc S/p repeat lami and fusion with instrumentation L4-5 for recurrent HNP and foot drop PE: General- unremarkable CN- intact; Motor- 5/5 except R EHL/TA 2-3/5; inv and ev 3-4-/5, gastroc 4, all improved; Numbness to LT R L5-S1 Dressing C/D/I WBC 8.3, Hgb 12.2 CARGO SERVICES COORDINATOR for pain Valium for muscle relaxation Monitor wound Incentive spirometry Keep drain for 24 hours more Cont iv abx given drain in place Intraop findings d/w pt
[2019-09-30] MEDS: D5-1/2NS+20 MEQ KCL - 20 MEQ/1,000 ML INFUS.BAG IV SCH (10:03)
[2019-09-30] MEDS ORDERED: TAPENTADOL HYDROCHLORIDE 75 MG TABLET PO PRN (11:00)
--- NOTE | 2019-09-30 11:20 | PN ---
Progress Note (short form) - Note Progress Note: Hospitalist Medicine Resting comfortably, quintana with good UO, and LISA drain. Drain will be removed tomorrow. No flatus yet Vitals 09/30/19 08:54 Temperature 98.8 F Pulse Rate 98 H Respiratory 15 Rate Blood Pressure 120/66 Physical Exam General: resting comfortably, in NAD HEENT: NCAT, PERRLA neck: supple cardio: S1, S2 RRR. no r/m/g abdomen: nontender, nondistended dressing: unable to turn this AM d/t pain. +LISA drain with good output MSK: +able to move UE, LE. neuro: vertica architect 2-12 grossly intact, motor strength 5/5 LE, 3-4/5 RLE, +decreased sensation R haines Laboratory Tests 09/29/19 09/29/19 09/29/19 06:00 06:00 06:00 WBC 6.7 Hgb 13.6 Hct 39.9 Plt Count 159 PT with INR 11.40 INR 0.97 PTT (Actin FS) 29.8 Sodium 140 Potassium 4.1 Chloride 108 H Carbon Dioxide 28 BUN 15.0 Creatinine 0.9 Random Glucose 85 AST 11 L ALT 29 Albumin 3.4 09/28/19: CXR: no acute pathology. previous neck fusion hardware 09/29/19: Lumbar XR: two views of lumbar spine have been obtained with needle at level of L4. 09/30/19: Repeat Lumbar XR s/p fusion: to be taken, pending Assessment/plan 54 y/o M with PMH afib s/p (ablation x 2; was on a/c previously. only on asa now ), DJD, HLD, s/p multiple c-spine and L-S spine surgeries (6 total), s/p recent laminectomy by Dr. Perkins (08/2019), who presents for continued R lower back pain radiating to his RLE. #RLE radiculopathy s/p repeat laminectomy and fusion w/ instrumentation L4-L5 - PO Day 1 -tolerated sx well, s/p 2U prbcs (prophylactic) H/H stable -on nucynta PRN, valium for pain control -on senna, colace, dulcolax. for bowel regimen -on IVF, incentive jessy -monitor LISA drain output, UO w/ quintana -started on IV vanco (Day 2), will get trough before 4th dose -rest per neurosx post-op -PT -f/u post-fusion imaging -neurosx: Dr. Perkins #hx afib -received ablation x 2 previously -has been asymptomatic, and off a/c since controlled by ablation -cardio is Dr. Almonte at [facility] -asa still held #HLD -c/w statin #F/E/N D51/2NS +20 meq Kcl 100 cc/hr continue to follow lyjohnnie NPO advance per sx, w / flatus #PPX DVT: SCD's/ mechanical for now #Dispo cont'd monitoring on med/surg LISA drain removal in 24hrs <Purnima Espinoza - Last Filed: 09/30/19 13:10> - Note Progress Note: Seen and examined; all delatorre historical findings and physical exam findings independently verified alongside all imaging, labs, and diagnostics. Agree with above documentation aside from as supplemented by myself. Discussed at length with resident team. Seen and examined preop; no new findings. Hemodynamics stable. Pending repeal laminectomy for myelopathic symptoms. VS, labs, imaging reviewed NAD, AAO, resting in bed NC AT EOMI PERRLA Trachea midline, no LN, no JVD CN2-12 wnl, no fnd HR wnl, s1/2+ Lungs CTAB, w/ sym exp NT ND +BS Aforementioned foot drop noted with no focal further neuro sx; otherwise moves all 4 ext, normal muscle tone. A/P: Doing well postoperatively. -RLE radiculopathy s/p repeat laminectomy and fusion w/ instrumentation L4-L5 - PO Day 0 -Status post multiple spinal surgeries (Cervical, lumbosacral. No new issues with the old sites noted) -tolerated well, s/p 2U prbcs (prophylactic) -S/P PRBC xf (given preop ppx; no complications evident) -Hx Afib s/p ablation x2 (No home AC aside from ASA which was appropriately help preop-restart per nsgy) -Hx HLD (Continue home statin, FU FLP OP) -Hx DJD (Other sites, nonacute, PRN management) <Kushal Morin - Last Filed: 10/02/19 09:18>
[2019-09-30] MEDS: TAPENTADOL HYDROCHLORIDE 50 MG TABLET PO PRN ×2 (15:05→18:36)
[2019-09-30] MEDS ORDERED: MORPHINE SULFATE 2 MG/ML VIAL IVPUSH ONE ×3 (16:06→22:00)
[2019-09-30] MEDS: SENNOSIDES 8.6MG TABLET (FP) PO SCH (22:13)
[2019-10-01] MEDS: D5-1/2NS+20 MEQ KCL - 20 MEQ/1,000 ML INFUS.BAG IV SCH (01:44)
[2019-10-01] MEDS: diazePAM 5 MG TABLET PO SCH ×3 (04:49→21:50)
[2019-10-01] MEDS: DOCUSATE SODIUM 100 MG CAPSULE (FP) PO SCH ×3 (05:10→21:50)
[2019-10-01] MEDS: GABAPENTIN 300 MG CAPSULE (FP) PO SCH ×3 (05:10→21:51)
--- NOTE | 2019-10-01 05:26 | PN ---
Progress Note, Physician Chief Complaint: s/p lumbar fusion under general anesthesia post op day one History of Present Illness: oral analgesics for post op pain control - Current Medication List Current Medications: Active Medications Acetaminophen (Tylenol -) 650 mg PO Q6H PRN PRN Reason: PAIN LEVEL 4 - 6 Last Admin: 09/30/19 22:15 Dose: 650 mg Atorvastatin Calcium (Lipitor -) 20 mg PO DAILY ON LICENSE OF [facility] Last Admin: 09/30/19 09:46 Dose: Not Given Bisacodyl (Dulcolax Suppository -) 10 mg RC DAILY PRN PRN Reason: CONSTIPATION Dexamethasone Sodium Phosphate (Decadron Injection -) 4 mg IVPUSH ONCE PRN PRN Reason: NAUSEA AND/OR VOMITING Diazepam (Valium -) 10 mg PO Q8H ON LICENSE OF [facility] Last Admin: 10/01/19 04:49 Dose: 10 mg Diphenhydramine HCl (Benadryl Injection -) 12.5 mg IVPUSH ONCE PRN PRN Reason: FOR ITCHING Docusate Sodium (Colace -) 100 mg PO TID ON LICENSE OF [facility] Last Admin: 10/01/19 05:10 Dose: 100 mg Gabapentin (Neurontin -) 300 mg PO TID ON LICENSE OF [facility] Last Admin: 10/01/19 05:10 Dose: 300 mg Potassium Chloride/Dextrose/Sod Cl (D5-1/2ns+20 Meq Kcl -) 20 meq in 1,000 mls @ 100 mls/hr IV ASDIR ON LICENSE OF [facility] Last Admin: 10/01/19 01:44 Dose: 100 mls/hr Ondansetron HCl (Zofran Injection) 4 mg IVPUSH Q6H PRN PRN Reason: NAUSEA AND/OR VOMITING Ondansetron HCl (Zofran Injection) 4 mg IVPUSH Q6H PRN PRN Reason: NAUSEA AND/OR VOMITING Senna (Senna -) 1 tab PO HS ON LICENSE OF [facility] Last Admin: 09/30/19 22:13 Dose: 1 tab Tapentadol (Nucynta -) 75 mg PO Q4H PRN PRN Reason: PAIN LEVEL 6-10 Last Admin: 09/30/19 18:36 Dose: 75 mg - Objective Vital Signs: Vital Signs Temperature 100.3 F H 09/30/19 22:00 Pulse Rate 103 H 09/30/19 22:00 Respiratory Rate 18 09/30/19 22:00 Blood Pressure 137/72 09/30/19 22:00 O2 Sat by Pulse Oximetry (%) 100 09/30/19 21:00 Constitutional: Yes: Well Nourished, Moderate Distress Cardiovascular: Yes: WNL Respiratory: Yes: WNL Gastrointestinal: Yes: WNL Labs: CBC, BMP 09/30/19 08:25 09/30/19 08:25 INR, PTT INR 0.97 (0.83-1.09) 09/29/19 06:00 Assessment/Plan patient complaining of inadequate pain control, would recommend adding breakthrough pain medication orders, no adverse anesthetic effects, please consult the dept of anesthesia with any questions about pain management if unable to control patient's pain, otherwise dept of anesthesia will sign off care at this time
[2019-10-01] MEDS: TAPENTADOL HYDROCHLORIDE 50 MG TABLET PO PRN ×4 (06:41→21:51)
--- NOTE | 2019-10-01 07:11 | PN ---
Progress Note (short form) - Note Progress Note: NEUROSURGERY POD #2 Incisional pain No sciatica L or R Tmax 100.3, AF now, VSS GP 45 cc S/p repeat lami and fusion with instrumentation L4-5 for recurrent HNP and foot drop PE: General- unremarkable CN- intact; Motor- 5/5 except R EHL 3/5, TA 4-, inv and ev 4-/5, gastroc 4; Numbness to LT R L5-S1 less Dressing C/D/I Labs ordered Valium for muscle relaxation Monitor wound Incentive spirometry D/C drain Levaquin for low grade temp D/C Beck PT OOB with LSO brace Intraop findings d/w pt
[2019-10-01 09:14] LABS: BASO % 0.3 % (0-2.0); EOS % 2.1 % (0-4.5); HEMATOCRIT 35.3 % (35.4-49); HEMOGLOBIN 12.1 GM/dL (11.7-16.9); LYMPH % 15.2 % (8-40); MCH 29.6 pg (25.7-33.7); MCHC 34.2 g/dl (32.0-35.9); MEAN CELL VOLUME 86.5 fl (80-96); MEAN PLT VOLUME 9.2 fl (7.5-11.1); MONO % 9.8 % (3.8-10.2); NEUT % 72.6 % (42.8-82.8); PLATELET COUNT 141 K/MM3 (134-434); RBC 4.08 M/mm3 (4.00-5.60); RDW 12.9 % (11.9-15.9); WHITE BLOOD COUNT 8.8 K/mm3 (4.0-10.0)
[2019-10-01 09:40] LABS: BLOOD UREA NITROGEN 9.3 mg/dL (7-18); CALCIUM 7.9 mg/dL (8.5-10.1); CREATININE 0.9 mg/dL (0.55-1.3); MAGNESIUM 1.9 mg/dL (1.8-2.4); PHOSPHOROUS 2.5 mg/dL (2.5-4.9); POTASSIUM 4.6 mmol/L (3.5-5.1)
[2019-10-01] MEDS: ATORVASTATIN CA 20 MG TABLET (FP) PO SCH (10:05)
--- NOTE | 2019-10-01 13:26 | PN ---
Progress Note (short form) - Note Progress Note: Hospitalist Medicine Resting comfortably. Febrile overnight, was given tylenol. Beck out. Still with LISA however for removal per neurosx Vitals 10/01/19 05:57 Temperature 98.8 F Pulse Rate 89 Respiratory 18 Rate Blood Pressure 120/65 Physical Exam General: resting comfortably, in NAD HEENT: NCAT, PERRLA neck: supple cardio: S1, S2 RRR. no r/m/g abdomen: nontender, nondistended dressing: changed this AM, c/d/i MSK: +able to move UE, LE. 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 previous neck fusion hardware 09/29/19: Lumbar XR: two views of lumbar spine have been obtained with needle at level of L4. 09/30/19: Repeat Lumbar XR s/p fusion: posterior fusion L4-L5 with disc space replacement. Paraspinal and paravertebral soft tissues appear intact Assessment/plan 54 y/o M with PMH afib s/p (ablation x 2; was on a/c previously. only on asa now ), DJD, HLD, s/p multiple c-spine and L-S spine surgeries (6 total), s/p recent laminectomy by Dr. Perkins (08/2019), who presents for continued R lower back pain radiating to his RLE. #RLE radiculopathy s/p repeat laminectomy and fusion w/ instrumentation L4-L5 - PO Day 3 -tolerated sx well, s/p 2U prbcs (prophylactic) H/H stable -on nucynta PRN. valium for muscle relaxation -on senna, colace, dulcolax. for bowel regimen -on IVF, incentive jessy -LISA drain for removal -off abx -rest per neurosx post-op -PT -neurosx: Dr. Perkins #Febrile r/o post-op causes -r/o UTI, atelectasis/PNA -c/w IS -bladder scan PRN -f/u UA, UCx -f/u blood cx #hx afib -received ablation x 2 previously -has been asymptomatic, and off a/c since controlled by ablation -cardio is Dr. Almonte at [facility] -asa still held #HLD -c/w statin #F/E/N off IVF continue to follow lytes reg diet #PPX DVT: SCD's/ mechanical for now #Dispo cont'd monitoring on med/surg for LISA drain removal <Purnima Espinoza - Last Filed: 10/01/19 13:32> - Note Progress Note: Seen and examined; all delatorre historical findings and physical exam findings independently verified alongside all imaging, labs, and diagnostics. Agree with above documentation aside from as supplemented by myself. Discussed at length with resident team. Seen and examined preop; no new findings. Hemodynamics stable. Pending repeal laminectomy for myelopathic symptoms. VS, labs, imaging reviewed NAD, AAO, resting in bed NC AT EOMI PERRLA Trachea midline, no LN, no JVD CN2-12 wnl, no fnd HR wnl, s1/2+ Lungs CTAB, w/ sym exp NT ND +BS Aforementioned foot drop noted with no focal further neuro sx; otherwise moves all 4 ext, normal muscle tone. Per nsgy: " 5/5 except R EHL 3/5, TA 4-, inv and ev 4-/5, gastroc 4; Numbness to LT R L5-S1 less" A/P: Doing well postoperatively. Did have fever last night; stopping levaquin and investigating source (uncertain whynot done overnight?) -RLE radiculopathy s/p repeat laminectomy and fusion w/ instrumentation L4-L5 - PO Day 0 -Status post multiple spinal surgeries (Cervical, lumbosacral. No new issues with the old sites noted) -tolerated well, s/p 2U prbcs (prophylactic) -S/P PRBC xf (given preop ppx; no complications evident) -Hx Afib s/p ablation x2 (No home AC aside from ASA which was appropriately help preop-restart per nsgy) -Hx HLD (Continue home statin, FU FLP OP) -Hx DJD (Other sites, nonacute, PRN management) <Yurkiw,Kushal - Last Filed: 10/02/19 09:29>
[2019-10-01] MEDS: SENNOSIDES 8.6MG TABLET (FP) PO SCH (21:51)
[2019-10-01] MEDS ORDERED: TAMSULOSIN HCL 0.4 MG CAP PO ONE (23:33)
[2019-10-02] MEDS ORDERED: KETOROLAC TROMETHAMINE 30 MG/1 ML VIAL IVPUSH ONE (01:41)
--- NOTE | 2019-10-02 03:44 | PN ---
Progress Note (short form) - Note Progress Note: Paged by RN that patient was in urinary retention close to 500cc in bladder. Pt visibly uncomfortable and in pain. 18 Fr Beck Coude catheter inserted by designer/writer. Draining light yellow urine.
[2019-10-02] MEDS: diazePAM 5 MG TABLET PO SCH ×2 (04:58→13:05)
[2019-10-02] MEDS: GABAPENTIN 300 MG CAPSULE (FP) PO SCH ×2 (05:03→14:41)
[2019-10-02] MEDS: DOCUSATE SODIUM 100 MG CAPSULE (FP) PO SCH ×2 (05:03→14:39)
[2019-10-02] MEDS: TAPENTADOL HYDROCHLORIDE 50 MG TABLET PO PRN ×2 (05:09→17:37)
--- NOTE | 2019-10-02 09:07 | PN ---
Physical Exam: SUBJECTIVE: Patient seen and examined; per overnight resident: "Paged by RN that patient was in urinary retention close to 500cc in bladder. Pt visibly uncomfortable and in pain. 18 Fr Beck Coude catheter inserted by telegraphic typewriter installer. Draining light yellow urine." I noted neurosurgery started the patient on tamsulosin. The urinary retention is likely 2/2 BPH but will consult urology for completeness. Beck inserted. Spoke to nurse Kamari. 10 sys ROS done and negative aside from HPI. OBJECTIVE: Vital Signs Period Temp Pulse Resp BP Sys/Baker Pulse Ox Last 24 Hr 98.5 F-99.3 F 105-113 18-20 112-132/69-79 93-100 GENERAL: The patient is awake, alert, and fully oriented, in no acute distress. HEAD: Normal with no signs of trauma. EYES: PERRL, extraocular movements intact, sclera anicteric, conjunctiva clear. No ptosis. ENT: Ears normal, nares patent, oropharynx clear without exudates, moist mucous membranes. NECK: Trachea midline, full range of motion, supple. LUNGS: Breath sounds equal, clear to auscultation bilaterally, no wheezes, no crackles, no accessory muscle use. HEART: Regular rate and rhythm, S1, S2 without murmur, rub or gallop. ABDOMEN: Soft, nontender, nondistended, normoactive bowel sounds, no guarding. Beck inserted. EXTREMITIES: 2+ pulses, warm, well-perfused, no edema. NEUROLOGICAL: Cranial nerves II through XII grossly intact. Normal speech, gait not observed. PSYCH: Normal mood, normal affect. SKIN: Warm, dry, normal turgor, no rashes or lesions noted Laboratory Results - last 24 hr 10/01/19 10/01/19 07:30 07:30 WBC 8.8 RBC 4.08 Hgb 12.1 Hct 35.3 L MCV 86.5 MCH 29.6 MCHC 34.2 RDW 12.9 Plt Count 141 MPV 9.2 Absolute Neuts (auto) 6.4 Neutrophils % 72.6 Lymphocytes % 15.2 Monocytes % 9.8 Eosinophils % 2.1 Basophils % 0.3 Nucleated RBC % 0 Sodium 137 Potassium 4.6 Chloride 104 Carbon Dioxide 27 Anion Gap 6 L BUN 9.3 Creatinine 0.9 Est GFR (CKD-EPI)AfAm 110.27 Est GFR (CKD-EPI)NonAf 95.14 Random Glucose 277 H Calcium 7.9 L Phosphorus 2.5 Magnesium 1.9 Active Medications Generic Name Dose Route Start Last Admin Trade Name Freq PRN Reason Stop Dose Admin Acetaminophen 1,000 mg 10/02/19 01:42 Ofirmev Injection - IVPB Q6H PRN PAIN LEVEL 6-10 Atorvastatin Calcium 20 mg 09/28/19 13:00 10/01/19 10:05 Lipitor - PO 20 mg DAILY DIPAK Administration Bisacodyl 10 mg 09/29/19 12:40 Dulcolax Suppository - RC DAILY PRN CONSTIPATION Dexamethasone Sodium Phosphate 4 mg 09/29/19 13:12 Decadron Injection - IVPUSH ONCE PRN NAUSEA AND/OR VOMITING Diazepam 10 mg 09/29/19 12:45 10/02/19 04:58 Valium - PO 10 mg Q8H DIPAK Administration Diphenhydramine HCl 12.5 mg 09/29/19 13:12 Benadryl Injection - IVPUSH ONCE PRN FOR ITCHING Docusate Sodium 100 mg 09/29/19 14:00 10/02/19 05:03 Colace - PO 100 mg TID DIPAK Administration Gabapentin 300 mg 09/28/19 14:00 10/02/19 05:03 Neurontin - PO 300 mg TID DIPAK Administration Ondansetron HCl 4 mg 09/29/19 12:40 Zofran Injection IVPUSH Q6H PRN NAUSEA AND/OR VOMITING Ondansetron HCl 4 mg 09/29/19 13:12 Zofran Injection IVPUSH Q6H PRN NAUSEA AND/OR VOMITING Senna 1 tab 09/28/19 22:00 10/01/19 21:51 Senna - PO 1 tab HS DIPAK Administration Tamsulosin HCl 0.4 mg 10/02/19 08:30 Flomax - PO DAILY@0830 DIPAK Tapentadol 75 mg 09/30/19 11:47 10/02/19 05:09 Nucynta - PO 75 mg Q4H PRN Administration PAIN LEVEL 6-10 ASSESSMENT/PLAN: Presents with foot drop/myelopathy and doing well postoperatively but complicated by fever. Source is likely urinary with urinary retention noted overnight. Started on tamulosin which I agree with and will be continued. Consulting urology with Dr. Goetz-appreciate expert input. Continue Nucynta, etc. Pain controlled. Spoke with yesterday. Got LQ yesterday; started ceftriaxone Informed by the patient he has had multiple episodes of prostatitis that was treated with cipro in the past. It has been about a year; he has a remote urologist who works from [place]. Problems include: -RLE radiculopathy s/p repeat laminectomy and fusion w/ instrumentation L4-L5 -Postoperative fever likely secondary to urinary source vs. prostatitis. Ordered UA/cx yesterday. Unsure why not done. Beck inserted. With retention likely etiology -Urinary retention (tams, uro) -Status post multiple spinal surgeries (Cervical, lumbosacral. No new issues with the old sites noted) -tolerated sx well, s/p 2U prbcs (prophylactic) -S/P PRBC xf (given preop ppx; no complications evident) -Hx Afib s/p ablation x2 (No home AC aside from ASA which was appropriately help preop-restart per nsgy) -Hx HLD (Continue home statin, FU FLP OP) -Hx DJD (Other sites, nonacute, PRN management) Full code Visit type - Emergency Visit Emergency Visit: Yes ED Registration Date: 09/28/19 Care time: The patient presented to the Emergency Department on the above date and was hospitalized for further evaluation of their emergent condition. - New Patient This patient is new to me today: No - Critical Care Critical Care patient: No
[2019-10-02] MEDS: TAMSULOSIN HCL 0.4 MG CAP PO SCH (09:47)
[2019-10-02] MEDS: ATORVASTATIN CA 20 MG TABLET (FP) PO SCH (09:47)
[2019-10-02] MEDS ORDERED: CEFTRIAXONE 1 GM in DEXTROSE 5%-WATER - 50 ML IVPB ONE (11:00)
[2019-10-02] MEDS ORDERED: cefTRIAXone SODIUM 1 GM VIAL ONE (11:21)
[2019-10-02] MEDS ORDERED: DEXTROSE 5%-WATER - 50 ML IVPB ONE (11:21)
[2019-10-02 12:08] LABS: URINE APPEARANCE CLOUDY; URINE COLOR DK YELLOW
[2019-10-02 12:09] LABS: URINE BILIRUBIN MODERATE (NEGATIVE); URINE GLUCOSE (UA) NEGATIVE (NEGATIVE); URINE KETONE 80 (NEGATIVE)
[2019-10-02 12:10] LABS: PH,URINE 5.5 (5.0-8.0); URINE PROTEIN 100 (NEGATIVE)
[2019-10-02 12:11] LABS: EPI CELLS 25.8 /HPF (0-5/HPF); HYALINE CASTS 297.66 /lpf (0-8); URINE BACTERIA 3.8 /hpf (NEGATIVE); URINE LEUK ESTERASE SMALL (NEGATIVE); URINE NITRITE NEGATIVE (NEGATIVE); URINE RBC 5.1 /hpf (0-4); URINE WBC 66.1 /hpf (0-5)
[2019-10-02] MEDS: ACETAMINOPHEN 1000 MG/100 ML VIAL (NON FORMULARY) IVPB PRN (12:54)
--- NOTE | 2019-10-02 13:23 | PN ---
Progress Note (short form) - Note Progress Note: NEUROSURGERY POD #3 Incisional pain family at bedside No sciatica Tmax 99.5, AF now, VSS Some difficulty voiding, catheter inserted S/p repeat lami and fusion with instrumentation L4-5 for recurrent HNP and foot drop PE: General- unremarkable CN- intact; Motor- 5/5 except R EHL 3/5, TA 4-, inv and ev 4-/5, gastroc 4; Numbness to LT R L5-S1 less Dressing C/D/I- no drainage Labs reviewed; WBC 8.8, Hgb 12.1, UA- 66WBC; 5RBC urine and blood cultures pending LS spine x-rays- satisfactory alignment implant positions L4-5 Valium for muscle relaxation Monitor wound Incentive spirometry Levaquin for low grade temp Flomax D/C Beck in am Doubt prostatic abscess given the clinical picture and lab findings D/w Dr Sanches, appreciate ID input PT OOB with LSO brace
[2019-10-02] MEDS ORDERED: LACTATED RINGERS SOLUTION 1000 ML INFUS.BAG IV ONE (13:35)
--- NOTE | 2019-10-02 14:56 | PN ---
Progress Note (short form) - Note Progress Note: ID consult dictated low grade fever urinary retention post lumbar laminectomy quintana placed +UA continue rocephin agree with flomax treat constipation f/u cultures d/w dr garrido hopefully quintana out soon Problem List - Problems (1) Postoperative fever Code(s): R50.82 - POSTPROCEDURAL FEVER (2) Urinary retention Code(s): R33.9 - RETENTION OF URINE, UNSPECIFIED (3) S/P lumbar laminectomy Code(s): Z98.890 - OTHER SPECIFIED POSTPROCEDURAL STATES
--- NOTE | 2019-10-02 16:57 | CONS ---
DATE OF CONSULTATION: DATE OF DICTATION: 10/02/2019 Patient is a 64-year-old male admitted to the hospital on September 28, 2019. He is admitted for an elective lumbar spine surgery. He does have history of atrial fibrillation, has undergone radiofrequency ablation twice. Patient was on anticoagulation, but presently is only on aspirin. He also has history of degenerative joint disease, hyperlipidemia. He has had multiple spinal surgical procedures, 6 in total. He is status post a recent laminectomy by Dr. Perkins on August 21. He presently presents with right lower back pain radiating to the right lower extremity. States that it has been chronic, and his right foot has developed a drop. Despite recent surgery, the patient still complains of a shooting pain. He did undergo a repeat MRI last week, and this revealed a recurrent disk herniation with fluid collection. He underwent a lumbar exploration as well as a laminectomy on September 29, 2019. He had an uneventful postoperative course. MEDICATIONS: He is on multiple medications including Lipitor, aspirin, Neurontin, Percocet, and Nucynta. ALLERGIES: He is allergic to PENICILLIN. LABORATORY: The patient's BUN and creatinine were within normal limits at 18 and 1, respectively. His CBC revealed a white count of 8.3, with a hemoglobin and hematocrit of 13.1/35.3. Platelet count was 141. The patient has been afebrile on October 02, 2019, in the a.m. Patient was noted to have suprapubic pain and an inability to void. Therefore, the patient underwent an uneventful Beck catheter insertion, and more than 500 mL of clear yellow urine was passed. The patient does have some complaints of prior prostatism including the frequency, urgency, terminal dribbling, and feelings of incomplete bladder emptying. The patient was also placed on tamsulosin by the neurosurgeon this week. Presently, the patient is afebrile. He is postop day 3. The wound is clean and dry. His white count is 8.8. Urine and blood cultures are pending. An LS spine x-ray revealed alignment of implant positions in L4-L5. Patient was commenced on Levaquin as well as Flomax. Will examine patient in a.m. to rule out any evidence of prostate abscess. Will follow with you. Ni [id number]
--- NOTE | 2019-10-02 17:24 | CONS ---
DATE OF CONSULTATION: DATE OF DICTATION: 10/02/2019 INFECTIOUS DISEASE CONSULTATION REQUESTING PHYSICIAN: The hospitalist service. HISTORY OF PRESENT ILLNESS: This is a 54-year-old man who was admitted on September 28 and underwent surgery on September 29. He had a redo and expansion of his prior L4-L5 laminectomies with Dr. Perkins. I am asked to see him because overnight he had a low-grade fever of 100.3 and was noted to be in urinary retention, and a Beck catheter was placed overnight by the hospitalist. I am asked to see him for possible UTI. This morning he is resting comfortably. He gives a history of having had recurrent prostatitis, treated with Cipro in the past, but this was in the remote past, not recently. PAST MEDICAL HISTORY: Notable for history of atrial fibrillation, status post ablation, DJD, hyperlipidemia. There is a history of prostatitis. PAST SURGICAL HISTORY: Notable for multiple back surgeries. ALLERGIES: PENICILLIN gave him a rash during childhood. He received a dose of ceftriaxone this morning. FAMILY HISTORY: Notable for esophageal cancer in his father and heart disease as well. SOCIAL HISTORY: He denies alcohol, cigarette or substance use. MEDICATIONS: His medications at home include atorvastatin, aspirin, gabapentin, oxycodone and Nucynta. REVIEW OF SYSTEMS: He is constipated and has not had a bowel movement. PHYSICAL EXAMINATION: Vital Signs: Current temp is 100.3, pulse of 119, blood pressure 121/67, respiratory rate 18. HEENT: He is normocephalic. His eyes are anicteric. Neck: Supple. Lungs: Clear to auscultation. Heart: Regular rate and rhythm. Abdomen: Soft, nontender. Genitourinary: He has a Beck draining clear urine. Back: His dressing is clean and dry, without drainage. LABORATORY DATA: White count is 8.8, hemoglobin 12.1, platelets 141. BUN 9, creatinine 0.9. Urinalysis has small leukocytes with 66 whites. His cultures are pending, blood and urine. He was given a dose of ceftriaxone this morning, and he received a dose of Levaquin yesterday. He received vancomycin perioperatively. SUMMARY: This is a 54-year-old man with prior history of multiple surgeries. He does report that at home has frequent nocturia. I suspect he has BPH. He has had prostatitis in the past. Now with postop urinary retention. He is also constipated. He has been started on Flomax and has a low-grade fever. Would suggest, if we can get him ambulatory, would try to get his Beck out as soon as possible. Would follow up his cultures. Would continue ceftriaxone for now for possible UTI. Further recommendations to follow. ROBLES CABAN M.D. RUPERT/[id number]
[2019-10-03] MEDS: TAPENTADOL HYDROCHLORIDE 50 MG TABLET PO PRN ×3 (00:29→17:00)
[2019-10-03] MEDS: diazePAM 5 MG TABLET PO SCH ×4 (00:30→21:26)
[2019-10-03] MEDS: DOCUSATE SODIUM 100 MG CAPSULE (FP) PO SCH ×4 (00:30→21:25)
[2019-10-03] MEDS: SENNOSIDES 8.6MG TABLET (FP) PO SCH ×2 (00:30→21:25)
[2019-10-03] MEDS: GABAPENTIN 300 MG CAPSULE (FP) PO SCH ×4 (00:30→21:25)
[2019-10-03] MEDS: ACETAMINOPHEN 1000 MG/100 ML VIAL (NON FORMULARY) IVPB PRN ×2 (08:16→16:57)
[2019-10-03] MEDS: TAMSULOSIN HCL 0.4 MG CAP PO SCH (08:16)
[2019-10-03] MEDS ORDERED: cefTRIAXone SODIUM 1 GM VIAL ONE (09:01)
[2019-10-03] MEDS ORDERED: DEXTROSE 5%-WATER - 50 ML IVPB ONE (09:01)
[2019-10-03] MEDS: CEFTRIAXONE 1 GM in DEXTROSE 5%-WATER - 50 ML IVPB SCH (09:23)
[2019-10-03] MEDS: ATORVASTATIN CA 20 MG TABLET (FP) PO SCH (09:24)
--- NOTE | 2019-10-03 13:10 | PN ---
Physical Exam: SUBJECTIVE: Patient seen and examined; transitioned to OOB with LS brace. Will need acute rehab and will d/w CM. Discussed with patient and family today. He is constipated and will get PO lactulose and if this doesn't work he would like an enema. He has no worrisome signs on abdominal exam and is otherwise stable. Pending read of CT. PSA deferred to uro but doubt utility given clinical picture; appreciate urology and sgy management. 10 sys ROS done and negative aside from HPI OBJECTIVE: Vital Signs Period Temp Pulse Resp BP Sys/Baker Pulse Ox Last 24 Hr 98.6 F-100.3 F 97-119 18-18 111-135/65-74 96-98 GENERAL: The patient is awake, alert, and fully oriented, in no acute distress. HEAD: Normal with no signs of trauma. EYES: PERRL, extraocular movements intact, sclera anicteric, conjunctiva clear. No ptosis. ENT: Ears normal, nares patent, oropharynx clear without exudates, moist mucous membranes. NECK: Trachea midline, full range of motion, supple. LUNGS: Breath sounds equal, clear to auscultation bilaterally, no wheezes, no crackles, no accessory muscle use. HEART: Regular rate and rhythm, S1, S2 without murmur, rub or gallop. ABDOMEN: Soft, nontender, nondistended, reduced bowel sounds EXTREMITIES: 2+ pulses, warm, well-perfused, no edema. NEUROLOGICAL: Cranial nerves II through XII grossly intact. Normal speech, gait not observed. PSYCH: Normal mood, normal affect. SKIN: Warm, dry, normal turgor, no rashes or lesions noted. Dressing is c/d/i no signs of incisional cellulitis. Laboratory Results - last 24 hr 10/02/19 10/02/19 15:00 15:10 ESR 73 H C-Reactive Protein 18.5 H Active Medications Generic Name Dose Route Start Last Admin Trade Name Freq PRN Reason Stop Dose Admin Acetaminophen 1,000 mg 10/02/19 01:42 10/03/19 08:16 Ofirmev Injection - IVPB 1,000 mg Q6H PRN Administration PAIN LEVEL 6-10 Atorvastatin Calcium 20 mg 09/28/19 13:00 10/03/19 09:24 Lipitor - PO 20 mg DAILY DIPAK Administration Bisacodyl 10 mg 09/29/19 12:40 Dulcolax Suppository - RC DAILY PRN CONSTIPATION Dexamethasone Sodium Phosphate 4 mg 09/29/19 13:12 Decadron Injection - IVPUSH ONCE PRN NAUSEA AND/OR VOMITING Diazepam 5 mg 10/03/19 14:00 Valium - PO TID DIPAK Diphenhydramine HCl 12.5 mg 09/29/19 13:12 Benadryl Injection - IVPUSH ONCE PRN FOR ITCHING Docusate Sodium 100 mg 09/29/19 14:00 10/03/19 06:25 Colace - PO 100 mg TID DIPAK Administration Gabapentin 300 mg 09/28/19 14:00 10/03/19 06:25 Neurontin - PO 300 mg TID DIPAK Administration Ceftriaxone Sodium 1 gm/ 50 mls @ 100 mls/hr 10/03/19 10:00 10/03/19 09:23 Dextrose IVPB 100 mls/hr DAILY DIPAK Administration Protocol Ondansetron HCl 4 mg 09/29/19 12:40 Zofran Injection IVPUSH Q6H PRN NAUSEA AND/OR VOMITING Ondansetron HCl 4 mg 09/29/19 13:12 Zofran Injection IVPUSH Q6H PRN NAUSEA AND/OR VOMITING Senna 1 tab 09/28/19 22:00 10/03/19 00:30 Senna - PO 1 tab HS DIPAK Administration Tamsulosin HCl 0.4 mg 10/02/19 08:30 10/03/19 08:16 Flomax - PO 0.4 mg DAILY@0830 DIPAK Administration Tapentadol 75 mg 09/30/19 11:47 10/03/19 08:15 Nucynta - PO 75 mg Q4H PRN Administration PAIN LEVEL 6-10 Microbiology 10/01/19 13:30 Blood - Peripheral Venous Blood Culture - Preliminary NO GROWTH OBTAINED AFTER 48 HOURS, INCUBATION TO CONTINUE FOR 3 DAYS. 10/01/19 13:15 Blood - Peripheral Venous Blood Culture - Preliminary NO GROWTH OBTAINED AFTER 48 HOURS, INCUBATION TO CONTINUE FOR 3 DAYS. 10/02/19 10:00 Urine - Urine Beck Urine Culture - Final NO GROWTH OBTAINED CT abd/pelvis pending ASSESSMENT/PLAN: Presents with foot drop/myelopathy and doing well postoperatively but complicated by fever. Source is likely urinary with urinary retention noted overnight. Started on tamulosin which I agree with and will be continued. Consulting urology with Dr. Goetz-appreciate expert input. Continue Nucynta, etc. Pain controlled. Spoke with yesterday. Got LQ yesterday; started ceftriaxone. Today, he is pending imaging results; continue abx per ID. Appreciate uro, ID, and nsgy guidance. Will start evaluating dispo and transition to OOB. FU imaging. Problems include: -RLE radiculopathy s/p repeat laminectomy and fusion w/ instrumentation L4-L5 ( OOB with LS brace per nsgy, will need rehab.) -Postoperative fever likely secondary to urinary source vs. prostatitis ( Continue abx per ID, FU with urology recs and micro) -Postoperative ileus ( -Urinary retention (tams, uro) -Status post multiple spinal surgeries (Cervical, lumbosacral. No new issues with the old sites noted) -tolerated sx well, s/p 2U prbcs (prophylactic) -S/P PRBC xf (given preop ppx; no complications evident) -Hx Afib s/p ablation x2 (No home AC aside from ASA which was appropriately help preop-restart per nsgy) -Hx HLD (Continue home statin, FU FLP OP) -Hx DJD (Other sites, nonacute, PRN management) Full code Visit type - Emergency Visit Emergency Visit: Yes ED Registration Date: 09/28/19 Care time: The patient presented to the Emergency Department on the above date and was hospitalized for further evaluation of their emergent condition. - New Patient This patient is new to me today: No - Critical Care Critical Care patient: No
--- NOTE | 2019-10-03 15:01 | PN ---
Progress Note (short form) - Note Progress Note: NEUROSURGERY POD #4 Incisional pain family at bedside No sciatica Tmax 98.8, AF now, VSS Beck in PE: General- unremarkable CN- intact; Motor- 5/5 except R EHL 3/5, TA 4-, inv and ev 4-/5, gastroc 4; Numbness to LT R L5-S1 less Dressing C/D/I- no drainage Urine culture negative; blood culture negative x 48hrs urine and blood cultures pending LS spine x-rays- satisfactory alignment implant positions L4-[address] reading noted Valium for muscle relaxation - decreased dosage Monitor wound Incentive spirometry Flomax Decadron x1 D/C Beck Doubt prostatic abscess given the clinical picture and lab findings Appreciate ID input Outpatient f/u urology, PSA at this time would be distorted give Beck PT OOB with LSO brace
[2019-10-03] MEDS ORDERED: DEXAMETHASONE SOD PHOSPHATE 4 MG/1 ML VIAL IVPUSH ONE (15:04)
--- NOTE | 2019-10-03 16:36 | PN ---
Progress Note (short form) - Note Progress Note: 54 Y/O M with h/o urinary retention. S/p lumbar re-exploration for herniated disc. Bun/Cr 9/0.9, wbc 8.8, afebrile CT findings insignificant. Pt has been on flomax for past 48 hours. Will d/c quintana in am and give TOV.
[2019-10-03] MEDS ORDERED: LACTULOSE 20 GM/30 ML UDC (FOR ORAL USE ONLY) PO ONE (17:38)
[2019-10-04] MEDS: diazePAM 5 MG TABLET PO SCH ×3 (06:19→21:49)
[2019-10-04] MEDS: GABAPENTIN 300 MG CAPSULE (FP) PO SCH ×3 (06:19→21:49)
[2019-10-04] MEDS: DOCUSATE SODIUM 100 MG CAPSULE (FP) PO SCH ×3 (06:19→21:49)
[2019-10-04] MEDS: TAMSULOSIN HCL 0.4 MG CAP PO SCH (08:55)
[2019-10-04 08:57] LABS: BASO % 0.5 % (0-2.0); EOS % 2.3 % (0-4.5); HEMOGLOBIN 12.2 GM/dL (11.7-16.9); LYMPH % 22.3 % (8-40); MCH 28.8 pg (25.7-33.7); MCHC 33.9 g/dl (32.0-35.9); MEAN PLT VOLUME 8.8 fl (7.5-11.1); MONO % 10.5 % (3.8-10.2); NEUT % 64.4 % (42.8-82.8); PLATELET COUNT 252 K/MM3 (134-434); RBC 4.23 M/mm3 (4.00-5.60); RDW 12.7 % (11.9-15.9); WHITE BLOOD COUNT 6.8 K/mm3 (4.0-10.0)
--- NOTE | 2019-10-04 09:24 | PN ---
Progress Note (short form) - Note Progress Note: NEUROSURGERY POD #5 Incisional pain better BM x2, able to void Feels much better No sciatica AF, VSS Beck in PE: General- unremarkable CN- intact; Motor- 5/5 except R EHL 3-4-/5, TA 4-, inv and ev 44/5, gastroc 4 ( all improved); Numbness to LT R L5-S1 less Dressing C/D/I- no drainage Urine culture negative; blood culture negative x 48hrs WBC 6.8; repeat ESR pending Valium for muscle relaxation - decreased dosage Monitor wound Incentive spirometry Flomax Appreciate ID input Outpatient f/u urology May take showers change dressing afterwards PT OOB with LSO brace
[2019-10-04 09:26] LABS: ALBUMIN 2.9 g/dl (3.4-5.0); BILIRUBIN,TOTAL 0.4 mg/dL (0.2-1); CREATININE 0.7 mg/dL (0.55-1.3); MAGNESIUM 2.4 mg/dL (1.8-2.4); POTASSIUM 3.8 mmol/L (3.5-5.1); TOT PROT 6.1 g/dl (6.4-8.2)
[2019-10-04] MEDS ORDERED: cefTRIAXone SODIUM 1 GM VIAL ONE (09:41)
[2019-10-04] MEDS ORDERED: DEXTROSE 5%-WATER - 50 ML IVPB ONE (09:41)
[2019-10-04] MEDS: CEFTRIAXONE 1 GM in DEXTROSE 5%-WATER - 50 ML IVPB SCH (09:49)
[2019-10-04] MEDS: ATORVASTATIN CA 20 MG TABLET (FP) PO SCH (09:49)
[2019-10-04 12:03] LABS: ERYTHROCYTE SEDIMENTATION RATE 87 mm/hr (0-20)
--- NOTE | 2019-10-04 14:22 | PN ---
Progress Note (short form) - Note Progress Note: Hospitalist Medicine Resting in bed. Pain better controlled. awaiting bladder scan result. d/w nurse Vitals 10/04/19 10:00 Temperature 98.1 F Pulse Rate 90 Respiratory 17 Rate Blood Pressure 116/73 Physical Exam General: resting comfortably, in NAD HEENT: NCAT, PERRLA neck: supple cardio: S1, S2 RRR. no r/m/g abdomen: nontender, nondistended dressing: c/d/i MSK: +able to move UE, LE. 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 10/01/19 13:15 Blood - Peripheral Venous Blood Culture - Preliminary NO GROWTH OBTAINED AFTER 72 HOURS, INCUBATION TO CONTINUE FOR 2 DAYS. 09/28/19: CXR: no acute pathology. previous neck fusion hardware 09/29/19: Lumbar XR: two views of lumbar spine have been obtained with needle at level of L4. 09/30/19: Repeat Lumbar XR s/p fusion: posterior fusion L4-L5 with disc space replacement. Paraspinal and paravertebral soft tissues appear intact 10/02/19: CTAP: nonspecific colitis R colon, low attenuation structure central region of prostate, bilateral lower lobe consolidations. quintana seen Assessment/plan 54 y/o M with PMH afib s/p (ablation x 2; was on a/c previously. only on asa now ), DJD, HLD, s/p multiple c-spine and L-S spine surgeries (6 total), s/p recent laminectomy by Dr. Perkins (08/2019), who presents for continued R lower back pain radiating to his RLE. #RLE radiculopathy s/p repeat laminectomy and fusion w/ instrumentation L4-L5 -tolerated sx well, s/p 2U prbcs (prophylactic) H/H stable -on valium for muscle relaxation -on senna, colace, dulcolax. for bowel regimen -incentive jessy -off abx -PT -neurosx: Dr. Perkins #Urinary retention post-op -f/u bladder scan result -f/u pelvic sono -c/w rocephin (10/03) -ID: Dr. Myron hallman has been d/c #hx afib -received ablation x 2 previously -has been asymptomatic, and off a/c since controlled by ablation -cardio is Dr. Almonte at [facility] -asa still held #HLD -c/w statin #F/E/N off IVF continue to follow lytes reg diet #PPX DVT: SCD's/ mechanical for now #Dispo cont'd monitoring on med/surg rest of plans per neurosx awaiting bladder scan result
--- NOTE | 2019-10-04 14:43 | PN ---
Progress Note (short form) - Note Progress Note: quintana out voiding freely no fever alert Vital Signs Period Temp Pulse Resp BP Sys/Baker Pulse Ox Last 24 Hr 98.1 F-98.7 F 90-100 17-21 116-126/72-73 98-98 cor-rrr lungs clear abd soft,nt ext no edema CBC, BMP 10/04/19 07:20 10/04/19 07:20 Microbiology 10/01/19 13:30 Blood - Peripheral Venous Blood Culture - Preliminary NO GROWTH OBTAINED AFTER 72 HOURS, INCUBATION TO CONTINUE FOR 2 DAYS. 10/01/19 13:15 Blood - Peripheral Venous Blood Culture - Preliminary NO GROWTH OBTAINED AFTER 72 HOURS, INCUBATION TO CONTINUE FOR 2 DAYS. 10/02/19 10:00 Urine - Urine Quintana Urine Culture - Final NO GROWTH OBTAINED Current Medications Acetaminophen (Ofirmev Injection -) 1,000 mg IVPB Q6H PRN PRN Reason: PAIN LEVEL 6-10 Last Admin: 10/03/19 16:57 Dose: 1,000 mg Atorvastatin Calcium (Lipitor -) 20 mg PO DAILY [facility] Last Admin: 10/04/19 09:49 Dose: 20 mg Bisacodyl (Dulcolax Suppository -) 10 mg RC DAILY PRN PRN Reason: CONSTIPATION Diazepam (Valium -) 5 mg PO TID [facility] Last Admin: 10/04/19 06:19 Dose: 5 mg Diphenhydramine HCl (Benadryl Injection -) 12.5 mg IVPUSH ONCE PRN PRN Reason: FOR ITCHING Docusate Sodium (Colace -) 100 mg PO TID [facility] Last Admin: 10/04/19 06:19 Dose: 100 mg Gabapentin (Neurontin -) 300 mg PO TID [facility] Last Admin: 10/04/19 06:19 Dose: 300 mg Ceftriaxone Sodium 1 gm/ (Dextrose) 50 mls @ 100 mls/hr IVPB DAILY [facility]; Protocol Last Admin: 10/04/19 09:49 Dose: 100 mls/hr Ondansetron HCl (Zofran Injection) 4 mg IVPUSH Q6H PRN PRN Reason: NAUSEA AND/OR VOMITING Ondansetron HCl (Zofran Injection) 4 mg IVPUSH Q6H PRN PRN Reason: NAUSEA AND/OR VOMITING Senna (Senna -) 1 tab PO [facility] Last Admin: 10/03/19 21:25 Dose: 1 tab Tamsulosin HCl (Flomax -) 0.4 mg PO DAILY@0830 [facility] Last Admin: 10/04/19 08:55 Dose: 0.4 mg Tapentadol (Nucynta -) 75 mg PO Q4H PRN PRN Reason: PAIN LEVEL 6-10 Last Admin: 10/03/19 17:00 Dose: 75 mg a/p suspect postop urinary retention related to meds and constipation now resolved will review ct scan and sono- if normal would d/c antibiotics and plan for outpt urology fl/u
--- NOTE | 2019-10-04 17:07 | PATH ---
Surgical Pathology Report Patient Name: SUSY RENDON Med. Rec. #: [id number] /Age/Gender: 1965 (Age: 54) / M Account: [id number] Location: [address] [place] [address]/[facility] Taken: 09/29/2019 Received: 10/01/2019 Reported: 10/04/2019 Physicians: Ni Villarreal M.D. Specimen(s) Received DISC, L4-L5 Clinical History Right lumbar radiculopathy Final Diagnosis DISC, L4-L5, LAMINECTOMY, POSTERIOR LUMBAR INTERBODY FUSION: BENIGN INTERVERTEBRAL DISC TISSUE AND BONE. Electronically Signed Cheryl Cameron M.D. Gross Description Received in formalin labeled "L4, L5 disc," is a 4.5 x 3.5 x 0.4 cm aggregate of banerjee fragments of fibrocartilaginous tissue. A international account representative portion is submitted in one cassette. /10/01/201910/01/2019
[2019-10-04] MEDS: ACETAMINOPHEN 1000 MG/100 ML VIAL (NON FORMULARY) IVPB PRN (17:34)
--- NOTE | 2019-10-04 20:31 | PN ---
Progress Note (short form) - Note Progress Note: UROLOGY NOTE. PT. HAD POST-OP URINART RETETION, T=RX. WITH FLOMAX 0.4MGS. KONG WAS D/C , PT. IS VOIDING WELL, NO RESIDUEL URINE. SUGG. CONT. WITH FLOMAX 0.4MG KRUNAL.
[2019-10-04] MEDS: SENNOSIDES 8.6MG TABLET (FP) PO SCH (21:49)
[2019-10-05] MEDS: TAPENTADOL HYDROCHLORIDE 50 MG TABLET PO PRN (00:05)
[2019-10-05] MEDS ORDERED: TAPENTADOL HYDROCHLORIDE 50 MG TABLET PO ONE ×2 (06:00→17:15)
[2019-10-05] MEDS ORDERED: TAPENTADOL HYDROCHLORIDE 75 MG TABLET PO ONE (06:03)
[2019-10-05] MEDS: DOCUSATE SODIUM 100 MG CAPSULE (FP) PO SCH ×2 (06:18→13:56)
[2019-10-05] MEDS: diazePAM 5 MG TABLET PO SCH ×2 (06:18→13:56)
[2019-10-05] MEDS: GABAPENTIN 300 MG CAPSULE (FP) PO SCH ×2 (06:18→13:56)
[2019-10-05] MEDS ORDERED: ACETAMINOPHEN 1000 MG/100 ML VIAL (NON FORMULARY) IVPB PRN (07:44)
[2019-10-05] MEDS: TAMSULOSIN HCL 0.4 MG CAP PO SCH (07:49)
[2019-10-05] MEDS ORDERED: cefTRIAXone SODIUM 1 GM VIAL ONE (08:29)
[2019-10-05] MEDS ORDERED: DEXTROSE 5%-WATER - 50 ML IVPB ONE (08:29)
--- NOTE | 2019-10-05 08:38 | PN ---
Progress Note (short form) - Note Progress Note: NEUROSURGERY POD #6 Incisional pain better Able to void c/o L hip pain last night Not using brace when walking to bathroom Tmax 98.9, AF, VSS Beck in PE: General- unremarkable CN- intact; Motor- 5/5 except R EHL 3-4-/5, TA 4-, inv and ev 44/5, gastroc 4 ( all improved); Numbness to LT R L5-S1 less Dressing C/D/I- no drainage Urine culture negative; blood culture negative x 48hrs Valium for muscle relaxation Monitor wound Incentive spirometry Flomax 0.4 daily Appreciate ID and urology input May take showers change dressing afterwards PT OOB with LSO brace always Decadron x1
[2019-10-05 08:39] LABS: BASO % 0.7 % (0-2.0); EOS % 9.5 % (0-4.5); HEMATOCRIT 35.1 % (35.4-49); HEMOGLOBIN 12.1 GM/dL (11.7-16.9); LYMPH % 28.4 % (8-40); MCH 29.2 pg (25.7-33.7); MCHC 34.4 g/dl (32.0-35.9); MEAN CELL VOLUME 84.9 fl (80-96); MEAN PLT VOLUME 8.7 fl (7.5-11.1); MONO % 9.2 % (3.8-10.2); NEUT % 52.2 % (42.8-82.8); PLATELET COUNT 262 K/MM3 (134-434); RBC 4.14 M/mm3 (4.00-5.60); RDW 12.7 % (11.9-15.9); WHITE BLOOD COUNT 6.6 K/mm3 (4.0-10.0)
[2019-10-05] MEDS ORDERED: DEXAMETHASONE SOD PHOSPHATE 4 MG/1 ML VIAL IVPUSH ONE (08:39)
[2019-10-05 09:27] LABS: CALCIUM 8.8 mg/dL (8.5-10.1); CREATININE 0.8 mg/dL (0.55-1.3); MAGNESIUM 2.4 mg/dL (1.8-2.4); PHOSPHOROUS 4.3 mg/dL (2.5-4.9); POTASSIUM 3.5 mmol/L (3.5-5.1)
[2019-10-05] MEDS: CEFTRIAXONE 1 GM in DEXTROSE 5%-WATER - 50 ML IVPB SCH (10:11)
[2019-10-05] MEDS: ATORVASTATIN CA 20 MG TABLET (FP) PO SCH (10:13)
[2019-10-05] MEDS ORDERED: POLYETHYLENE GLYCOL 3350 119 GM BTL PO PRN (12:45)
[2019-10-05 15:29] VITALS: BP 129/76; PULSE 97; TEMP 98.2
--- NOTE | 2019-10-05 16:18 | PN ---
Progress Note (short form) - Note Progress Note: doing well some hip discomfort ct repeated no fevers urinating freely +BM Vital Signs Period Temp Pulse Resp BP Sys/Baker Pulse Ox Last 24 Hr 98 F-98.8 F 90-97 17-19 120-138/70-76 98-98 cor-rrr lungs clear abd soft,nt incision clean and dry ext no edema CBC, BMP 10/05/19 07:35 10/05/19 07:35 Microbiology 10/01/19 13:30 Blood - Peripheral Venous Blood Culture - Preliminary NO GROWTH OBTAINED AFTER 96 HOURS, INCUBATION TO CONTINUE FOR 1 DAYS. 10/01/19 13:15 Blood - Peripheral Venous Blood Culture - Preliminary NO GROWTH OBTAINED AFTER 96 HOURS, INCUBATION TO CONTINUE FOR 1 DAYS. 10/02/19 10:00 Urine - Urine Beck Urine Culture - Final NO GROWTH OBTAINED a/p ct scan done 10/02 reviewed with radiologist no evidence of abscess s/p lumbarlaminectomy postop urinary retention/constipation/low grade fever resolved d/w dr ybarra- no need to continue antibiotics from ID standpoint patient should f/u with his urologist as outpt--
--- NOTE | 2019-10-05 18:19 | DS ---
Physical Exam: SUBJECTIVE: Patient seen and examined at bedside. In good spirits, excited to leave to [place]. Family at bedside. OBJECTIVE: Vital Signs Period Temp Pulse Resp BP Sys/Baker Pulse Ox Last 24 Hr 98 F-98.8 F 90-97 17-19 120-138/70-76 98-98 Physical Exam General: resting comfortably, in NAD HEENT: NCAT, PERRLA neck: supple cardio: S1, S2 RRR. no r/m/g abdomen: nontender, nondistended dressing: c/d/i MSK: +able to move UE, LE. neuro: devops 2-12 grossly intact, motor strength 5/5 LE, 3-4/5 RLE, +decreased sensation R haines LABS Laboratory Results - last 24 hr 10/05/19 10/05/19 07:35 07:35 WBC 6.6 RBC 4.14 Hgb 12.1 Hct 35.1 L MCV 84.9 MCH 29.2 MCHC 34.4 RDW 12.7 Plt Count 262 MPV 8.7 Absolute Neuts (auto) 3.5 Neutrophils % 52.2 Lymphocytes % 28.4 D Monocytes % 9.2 Eosinophils % 9.5 H D Basophils % 0.7 Nucleated RBC % 0 Sodium 142 Potassium 3.5 Chloride 107 Carbon Dioxide 26 Anion Gap 9 BUN 15.0 Creatinine 0.8 Est GFR (CKD-EPI)AfAm 115.74 Est GFR (CKD-EPI)NonAf 99.86 Random Glucose 86 Calcium 8.8 Phosphorus 4.3 Magnesium 2.4 10/02/19 10/04/19 15:10 07:20 AST 8 L C-Reactive Protein 18.5 H 10.9 H Total Protein 6.1 L Albumin 2.9 L 10/02/19 10:00 Urine Nitrite Negative Urine Bilirubin Moderate Urine Urobilinogen 1.0 Ur Leukocyte Esterase Small Urine WBC (Auto) 66.1 Urine RBC (Auto) 5.1 Urine Casts (Auto) 297.66 U Pathogenic Cast Auto 23.76 U Epithel Cells (Auto) 25.8 U Sm Round Cell (Auto) 126.6 Urine Crystals (Auto) 0.0 09/28/19 09/29/19 10:20 06:00 PT with INR 11.30 11.40 INR 0.96 0.97 PTT (Actin FS) 29.8 Microbiology 10/02/19 10:00 Urine - Urine Quintana Urine Culture - Final NO GROWTH OBTAINED 10/01/19 13:30 Blood - Peripheral Venous Blood Culture - Preliminary NO GROWTH OBTAINED AFTER 96 HOURS, INCUBATION TO CONTINUE FOR 1 DAYS. 10/01/19 13:15 Blood - Peripheral Venous Blood Culture - Preliminary NO GROWTH OBTAINED AFTER 96 HOURS, INCUBATION TO CONTINUE FOR 1 DAYS. Imaging 09/28/19: CXR: no acute pathology. previous neck fusion hardware 09/29/19: Lumbar XR: two views of lumbar spine have been obtained with needle at level of L4. 09/30/19: Repeat Lumbar XR s/p fusion: posterior fusion L4-L5 with disc space replacement. Paraspinal and paravertebral soft tissues appear intact 10/02/19: CTAP: nonspecific colitis R colon, low attenuation structure central region of prostate, bilateral lower lobe consolidations. quintana seen 10/04/19: pelvic bladder sono: no obvious calculus or mass lesion within the limits of sono. a post void residual urinary volume of 80 ccs noted, pre void volume was 500 cc. the approximate prostate volume is 25 ml 10/05/19: lumbar CT: s/p fusion L4-L5 vertebral bodies in satisfactory alignment. limited visualization of post op soft tissue changes, posteriorly due to beam hardening, artifacts with evidence of subcutaneous edema HOSPITAL COURSE: Date of Admission:09/28/19 Date of Discharge: 10/05/19 Admit diagnosis: spinal fusion - neuro sx 54 y/o M with PMH afib s/p (ablation x 2; was on a/c previously. only on asa now ), DJD, HLD, s/p multiple c-spine and L-S spine surgeries (6 total), s/p recent laminectomy by Dr. Perkins (08/2019), who presents for continued R lower back pain radiating to his RLE. #RLE radiculopathy s/p repeat laminectomy and fusion w/ instrumentation L4-L5 -tolerated sx well, s/p 2U prbcs (prophylactic) H/H stable -repeat scans WNL; reviewed by neurosx -on valium for muscle relaxation -on senna, colace, dulcolax. for bowel regimen -pain controlled with nucynta q6h PRN, discharged on . as per neurosx -incentive jessy -c/w PT, rehab upon d/c #Urinary retention post-op -remedied by quintana , was successfully trialed off -was initially tx with rocephin. no indication as per ID to continue on d/c -will need f/u concerning prostate on d/c - given urology referral for Dr. Luke Goetz #hx afib -received ablation x 2 previously - can c/w asa on d/c #HLD -c/w statin Minutes to complete discharge: 44 Discharge Summary Problems reviewed: Yes Reason For Visit: RIGHT LUMBAR RADICULOPATHY Current Active Problems Lumbar pain (Acute) Radiculopathy (Acute) Condition: Improved - Instructions Diet, Activity, Other Instructions: You were in the hospital because you had a lumbar back surgery done by Dr. Perkins. You were monitored on the floor after your procedure, your pain was controlled, and your diet was advanced. You are being sent to [place] for continued rehabilitation. Medications 1. You will continue on nucynta every 6 hours, as needed for pain 2. You may continue gabapentin 300mg three times a day. If you experience increased discomfort, your primary care doctor can up-titrate this medication. 3. You may continue your other home medications 4. Please continue to take senna, colace and miralax to prevent constipation, while you are on these meds 5. Continue with flomax Care One of the scans revealed a "low attenuation structure" in your prostate. You may have to have your prostate antigen (PSA) checked. You will discuss this with the urologist. Follow up appointment -Please see the following physicians upon your discharge: -your neurosurgeon, Dr. Perkins - make an appointment to see him in 2 weeks as discussed below -your primary care doctor, we are referring you to Dr. Tomlin if you do not have one - please see her in 3-5 days to discuss your visit and establish care -urologist, Dr. Luke Goetz - this week Post-op Lumbar Decompression Instructions Diet: Regular Activity: Out of bed with back brace. May shower but keep incision line dry. Change dressing afterwards. Restrictions: Do not lift anything over 10lbs. Additional Instructions: Keep incision line clean and dry. Change dressing daily. Report any chills, fever (100.5 or greater), any wound drainage, or any neurological changes to Dr. Perkins. Do not drive for two weeks. Initial postop appt: Call Dr Camarena office for appointment to be seen 2 weeks postop. Referrals: Solomon Tomlin MD [Staff Physician] - 10/08/19 Roberth Perkins MD [Staff Physician] - 2 Weeks Hussein Goetz MD [Staff Physician] - 1 Week Disposition: VNS/HOME HEALTH CARE - Home Medications Comprehensive Discharge Medication List: Ambulatory Orders Atorvastatin Ca [Lipitor] 20 mg PO DAILY 12/03/13 Aspirin [Aspirin EC] 81 mg PO DAILY 05/24/15 Gabapentin [Neurontin -] 300 mg PO TID 30 Days #90 capsule MDD 3 09/02/19 Docusate Sodium [Colace -] 100 mg PO TID capsule 10/05/19 Polyethylene Glycol 3350 [Miralax 119 gm Btl -] 17 gm PO DAILY PRN bottle 10/05 Sennosides [Senna -] 1 tab PO HS tablet 10/05/19 Tamsulosin HCl [Flomax -] 0.4 mg PO DAILY@0830 cap.er.24h 10/05/19 Tapentadol Hydrochloride [Nucynta -] 75 mg PO Q6H PRN tablet MDD 4 tablets 01/19 This patient is new to me today: No Emergency Visit: No Critical Care patient: No - Discharge Referral Referred to [facility] No
== END 2019-10-05 19:02 | disposition home health service (06) | DRG 454 ==
LOC: JER 09:18 → JERBED 10:23 → J6S 09-29 15:52
PROVIDERS: ADMIT Internal Medicine; ATTEND Internal Medicine
PROC: 0SG0071 Fusion of Lumbar Vertebral Joint with Autologous Tissue Substitute, Posterior Approach, Posterior Column, Open Approach (ICD-10-PCS; 2019-09-29)
PROC: 0SB20ZZ Excision of Lumbar Vertebral Disc, Open Approach (ICD-10-PCS; 2019-09-29)
PROC: 00NY0ZZ Release Lumbar Spinal Cord, Open Approach (ICD-10-PCS; 2019-09-29)
PROC: 01NR0ZZ Release Sacral Nerve, Open Approach (ICD-10-PCS; 2019-09-29)
PROC: B01BZZZ Fluoroscopy of Spinal Cord (ICD-10-PCS; 2019-09-29)
PROC: 30233N1 Transfusion of Nonautologous Red Blood Cells into Peripheral Vein, Percutaneous Approach (ICD-10-PCS; 2019-09-29)
PROC: 0SG00AJ Fusion of Lumbar Vertebral Joint with Interbody Fusion Device, Posterior Approach, Anterior Column, Open Approach (ICD-10-PCS; principal; 2019-09-29 08:57)
DX: M51.16 Intervertebral disc disorders with radiculopathy, lumbar region (principal); K56.7 Ileus, unspecified; M53.2X6 Spinal instabilities, lumbar region; G96.19 Other disorders of meninges, not elsewhere classified; E78.5 Hyperlipidemia, unspecified; I48.91 Unspecified atrial fibrillation; N40.1 Benign prostatic hyperplasia with lower urinary tract symptoms; R33.8 Other retention of urine; R50.82 Postprocedural fever; K59.09 Other constipation; M21.371 Foot drop, right foot; M48.061 Spinal stenosis, lumbar region without neurogenic claudication
CPT/HCPCS: 36415; 36430; 71045-TC-FY; 72100-TC-FY; 72131-TC; 74177-TC; 76000-TC-FY; 76856-TC; 80048; 80053; 81003; 83735; 84100; 85025; 85027; 85610; 85651; 85730; 86140; 86850; 86900; 86901; 86922; 87040; 87086; 88304-TC; 93005; 93010; 94010; 94760; 97116-GP; 97162-GP; 99283-25; J0131; J7030; P9058; Q9967

== ENCOUNTER 2022-01-24 02:30 | Observation (INO) | payer BC ==
[2022-01-24 08:19] VITALS: TEMP 98.2; BMI 33.4
[2022-01-24] MEDS ORDERED: ASPIRIN COATED 81 MG TABLET.EC ONE (09:42)
[2022-01-24] MEDS ORDERED: ATORVASTATIN CA 40 MG TABLET (FP) ONE (09:43)
[2022-01-24] MEDS ORDERED: ENOXAPARIN NA (PORCINE) 40 MG/0.4 ML DISP.SYRIN SQ ONE (09:43)
[2022-01-24] MEDS ORDERED: ATORVASTATIN CA 40 MG TABLET (FP) PO ONE (10:00)
[2022-01-24] MEDS ORDERED: ASPIRIN COATED 81 MG TABLET.EC PO SCH (10:00)
[2022-01-24] MEDS ORDERED: ENOXAPARIN NA (PORCINE) 40 MG/0.4 ML DISP.SYRIN SQ SCH (10:00)
[2022-01-24] MEDS ORDERED: CARVEDILOL 3.125 MG TABLET (FP) PO SCH (10:15)
[2022-01-24 10:25] LABS: BASO % 0.6 % (0-2.0); EOS % 3.1 % (0-4.5); HEMATOCRIT 39.8 % (35.4-49); HEMOGLOBIN 13.7 GM/dL (11.7-16.9); LYMPH % 33.9 % (8-40); MCH 29.2 pg (25.7-33.7); MCHC 34.4 g/dl (32.0-35.9); MEAN CELL VOLUME 84.8 fl (80-96); MEAN PLT VOLUME 8.9 fl (7.5-11.1); MONO % 9.8 % (3.8-10.2); NEUT % 52.6 % (42.8-82.8); PLATELET COUNT 177 10^3/uL (134-434); RBC 4.69 M/mm3 (4.00-5.60); RDW 13.4 % (11.9-15.9); WHITE BLOOD COUNT 5.1 K/mm3 (4.0-10.0)
[2022-01-24 10:29] LABS: INR 0.96 (0.83-1.09)
[2022-01-24 10:32] LABS: ACTIVATED PTT 27.2 SECONDS (25.2-36.5)
[2022-01-24] MEDS ORDERED: CARVEDILOL 12.5 MG TABLET (FP) ONE (10:32)
[2022-01-24] MEDS ORDERED: CARVEDILOL 3.125 MG TABLET (FP) ONE (10:36)
[2022-01-24 10:42] LABS: ALBUMIN 3.7 g/dl (3.4-5.0); BLOOD UREA NITROGEN 12.3 mg/dL (7-18); CHOLESTEROL 150 mg/dL (50-200); TRIGLYCERIDES 164 mg/dL (0-150)
[2022-01-24 10:43] LABS: MAGNESIUM 2.3 mg/dL (1.8-2.4)
[2022-01-24 10:44] LABS: LDL CHOLESTEROL (ONLY SJRH) 91 mg/dL (5-100)
[2022-01-24 10:45] LABS: CALCIUM 8.9 mg/dL (8.5-10.1); CREATININE 0.9 mg/dL (0.55-1.3); HDL CHOLESTEROL 38 mg/dL (40-60)
[2022-01-24 10:47] LABS: BILIRUBIN,TOTAL 0.5 mg/dL (0.2-1); TOT PROT 6.5 g/dl (6.4-8.2)
[2022-01-24 12:58] LABS: BASO % 0.7 % (0-2.0); EOS % 3.1 % (0-4.5); HEMATOCRIT 39.5 % (35.4-49); HEMOGLOBIN 13.4 GM/dL (11.7-16.9); LYMPH % 38.8 % (8-40); MCH 28.9 pg (25.7-33.7); MCHC 33.8 g/dl (32.0-35.9); MEAN CELL VOLUME 85.4 fl (80-96); MEAN PLT VOLUME 8.4 fl (7.5-11.1); MONO % 9.1 % (3.8-10.2); NEUT % 48.3 % (42.8-82.8); PLATELET COUNT 182 10^3/uL (134-434); RBC 4.62 M/mm3 (4.00-5.60); RDW 13.6 % (11.9-15.9); WHITE BLOOD COUNT 6.4 K/mm3 (4.0-10.0)
[2022-01-24 12:59] LABS: INR 0.9 (0.83-1.09); PROTHROMBIN TIME (PATIENT) 10.3 SEC (9.7-13.0)
[2022-01-24] MEDS ORDERED: REGADENOSON 0.4 MG/5 ML PRE-FILLED SYRINGE IVPUSH ONE ×2 (13:00→13:17)
[2022-01-24 13:02] LABS: ALBUMIN 3.7 g/dl (3.4-5.0); ALK PHOS 80 U/L (45-117); BILIRUBIN,TOTAL 0.3 mg/dL (0.2-1); BLOOD UREA NITROGEN 14.4 mg/dL (7-18); CALCIUM 8.6 mg/dL (8.5-10.1); CHLORIDE 105 mmol/L (98-107); CO2 28 mmol/L (21-32); GLUCOSE,RANDOM 112 mg/dL (74-106); MAGNESIUM 2.3 mg/dL (1.8-2.4); SGOT/AST 16 U/L (15-37); SGPT/ALT 42 U/L (13-61); SODIUM 138 mmol/L (136-145); TOT PROT 6.7 g/dl (6.4-8.2)
[2022-01-24 17:08] VITALS: BP 147/81; PULSE 72
== END 2022-01-24 17:15 | disposition home or self-care (01) ==
LOC: JER 02:30 → JERBED 06:18
PROVIDERS: ADMIT Hospitalist; ATTEND Nurse Practitioner Acute Care
PROC: 3E023GC Introduction of Other Therapeutic Substance into Muscle, Percutaneous Approach (ICD-10-PCS; principal; 2022-01-24)
PROC: 3E033GC Introduction of Other Therapeutic Substance into Peripheral Vein, Percutaneous Approach (ICD-10-PCS; 2022-01-24)
DX: I48.0 Paroxysmal atrial fibrillation (principal); R07.2 Precordial pain; E78.5 Hyperlipidemia, unspecified; M19.90 Unspecified osteoarthritis, unspecified site; R07.9 Chest pain, unspecified; Z98.890 Other specified postprocedural states; Z88.0 Allergy status to penicillin
CPT/HCPCS: 36415; 71046-TC-FY; 78452-TC; 80053; 80061; 83036; 83735; 84484; 85025; 85610; 85730; 93005; 93010; 93017; 93306-TC; 99285-25; A9502; C9803-CS; G0378; J2785; U0003; U0005

== ENCOUNTER 2023-04-29 06:21 | Emergency (ER) | payer BC ==
[2023-04-29 06:27] VITALS: BMI 33.4
[2023-04-29] MEDS ORDERED: MECLIZINE HCL 25 MG TABLET (FP) PO ONE (08:13)
[2023-04-29] MEDS ORDERED: METOCLOPRAMIDE HCL INJECTION 10 MG/2 ML VIAL IVPB ONE (08:13)
[2023-04-29] MEDS ORDERED: METOCLOPRAMIDE HCL INJECTION 10 MG/2 ML VIAL ONE (08:19)
[2023-04-29] MEDS ORDERED: MECLIZINE HCL 25 MG TABLET (FP) ONE (08:19)
[2023-04-29 08:32] LABS: BASO % 0.6 % (0-2.0); EOS % 3.5 % (0-4.5); HEMATOCRIT 42.4 % (35.4-49); LYMPH % 39.1 % (8-40); MCH 28.3 pg (25.7-33.7); MCHC 33.1 g/dl (32.0-35.9); MEAN CELL VOLUME 85.6 fl (80-96); MONO % 9.2 % (3.8-10.2); NEUT % 47.6 % (42.8-82.8); PLATELET COUNT 191 10^3/uL (134-434); RBC 4.95 M/mm3 (4.00-5.60); RDW 13.5 % (11.9-15.9); WHITE BLOOD COUNT 5.7 K/mm3 (4.0-10.0)
[2023-04-29 08:39] LABS: INR 0.97 (0.83-1.09); PROTHROMBIN TIME (PATIENT) 11.2 SEC (9.7-13.0)
[2023-04-29 08:41] LABS: ACTIVATED PTT 27.7 SECONDS (25.2-36.5)
[2023-04-29 08:52] LABS: POTASSIUM 4.6 mmol/L (3.5-5.1)
[2023-04-29 08:54] LABS: BLOOD UREA NITROGEN 13.9 mg/dL (7-18); CALCIUM 9.1 mg/dL (8.5-10.1)
[2023-04-29 08:57] LABS: CREATININE 0.9 mg/dL (0.55-1.3)
[2023-04-29 08:59] LABS: BILIRUBIN,TOTAL 0.4 mg/dL (0.2-1); TOT PROT 6.8 g/dl (6.4-8.2)
[2023-04-29 13:52] VITALS: RESP 20
[2023-04-29] MEDS ORDERED: diazePAM CARPU-JECT 10 MG/2 ML DISP.SYRIN IVPUSH ONE (14:19)
[2023-04-29] MEDS ORDERED: diazePAM CARPU-JECT 10 MG/2 ML DISP.SYRIN ONE (14:26)
[2023-04-29 18:36] VITALS: BP 145/87; PULSE 67; TEMP 97.9
== END 2023-04-29 19:14 | disposition admitted as inpatient to this hospital (09) ==
LOC: JER 06:21
PROC: 3E033GC Introduction of Other Therapeutic Substance into Peripheral Vein, Percutaneous Approach (ICD-10-PCS; principal; 2023-04-29)
PROC: 3E033GC Introduction of Other Therapeutic Substance into Peripheral Vein, Percutaneous Approach (ICD-10-PCS; 2023-04-29)
DX: M54.2 Cervicalgia (principal); G89.29 Other chronic pain; R42 Dizziness and giddiness; I10 Essential (primary) hypertension; Z20.822 Contact with and (suspected) exposure to COVID-19
CPT/HCPCS: 0241U-QW; 36415; 70450-TC; 70496-TC; 70498-TC; 71045-TC-FY; 80053; 84484; 85025; 85610; 85730; 93005; 93010; 99285-25; Q9967